=== PATIENT | female | born 1950 | race Caucasian/White ===

== ENCOUNTER → 2024-01-30 12:58 | Outpatient (REF) | payer MEDICARE, SELFPAY ==
[2024-01-30 18:28] LABS: Urine Albumin Negative (Neg - Trace); Urine Bilirubin Negative (Negative); Urine Character Clear (Clear); Urine Color Straw; Urine Glucose Negative (Negative); Urine Ketone Negative (Negative); Urine Leukocyte Negative (Negative); Urine Nitrite Negative (Negative); Urine Occult Blood Negative (Negative); Urine Urobilinogen Negative (Neg - 1+); Urine pH 6.5 (5.0-9.0)
== END ==
LOC: OLABSOL 12:58
PROVIDERS: ATTENDING PHYSICIAN Nurse Practitioner Adult Health
DX: N39.0 Urinary tract infection, site not specified (principal)
CPT/HCPCS: 81003

== ENCOUNTER 2024-03-17 18:09 | Inpatient (IN) | payer MEDICARE, SELFPAY ==
[2024-03-17] VITALS (10 sets, daily range): BP systolic 122–175; BP diastolic 58–94; BMI 14.2
[2024-03-17 14:26] LABS: % Basophils 1.1 % (0-2); % Eosinophils 0.9 % (0-6); % Immature Granulocytes 0.4 % (0-0.5); % Lymphocytes 12.8 % (20.5-51.1); % Monocytes 9.4 % (1.7-9.3); % Neutrophils 75.4 % (42.2-75.2); Absolute Basophils 0.1 10^3/uL (0-0.2); Absolute Eosinophils 0.1 10^3/uL (0-0.7); Absolute Immature Granulocytes 0.1 10^3/uL (0-0.05); Absolute Lymphocytes 1.6 10^3/uL (1.2-3.4); Absolute Monocytes 1.2 10^3/uL (0.1-0.6); Absolute Neutrophils 9.3 10^3/uL (1.4-6.5); Hematocrit 38.4 % (37.0-47.0); Hemoglobin 12.6 g/dL (12.0-16.0); Mean Corp Hgb Conc. 32.8 g/dL (33.0-37.0); Mean Corpuscular Hgb 28.8 pg (27.0-31.0); Mean Corpuscular Volume 87.7 fL (81.0-99.0); Mean Platelet Volume 10.1 fL (7.4-10.4); Nucleated Red Blood Cells % 0 %; Platelet Count 365 10^3/uL (130-400); Red Blood Cell Count 4.38 10^6/uL (4.20-5.40); Red Cell Dist. Width 15.4 % (11.5-14.5); White Blood Cell Count 12.3 10^3/uL (4.8-10.8)
--- NOTE | 2024-03-17 14:31 | ED.GENMED ---
History of Present Illness
General
Chief Complaint: Breathing Problem
Time Seen by Provider: 03/17/24 13:54
History of Present Illness
History of Present Illness:
73-year-old female with history of dementia presents from the [facility] due to rapid breathing and heightened anxiety. Patient is not able to provide any significant history secondary to dementia. Per report from her nursing facility
she was noted to have suboptimal oxygen saturations and heart rates in the 40s.
Review of Systems
Review of Systems
Allergies reviewed?: Yes
All Other Systems: ROS reviewed and negative except as documented in HPI and ROS
Phy Exam
Physical Exam
Physical Exam:
GEN: Anxious and tachypneic, thin
HEENT: Oral mucosa moist, no scleral icterus
Cardiac: Bradycardic, no murmurs
Lung: Tachypneic, bibasilar crackles
MSK: No gross deformity or injuries
Skin: Good color, no pallor or jaundice, no rashes
Neuro: Alert, follows commands, profoundly disoriented
Psych: Calm, cooperative
Scores
Heart Failure Risk
Heart Failure Risk Score: Not Applicable
Course
Orders/Labs/Results
Orders:
Orders
03/17/24 Breakfast
Cholesterol Lowering
Cholesterol Lowering: Sodium, 2 Gram
03/17/24 13:57
Electrocardiogram (*1) Urgent
Reason for Study: Shortness of Breath
EKG- Treatment ONCE
03/17/24 14:05
CMP [Comprehensive Metabolic Panel] Urgent
Complete Blood Count/With Diff Urgent
Magnesium Urgent
Comment: ADD ON
NT-proBNP Urgent
Troponin I Urgent
03/17/24 14:31
Add On- LAB Urgent
Tests Added?: BNP
CR Chest - 2 Views Stat
Comment:
Reason For Exam: SOB
03/17/24 14:38
COVID-19 Antigen Urgent
Source: Nasal Swab
Influenza A+B Rapid Molecular Urgent
ADIN Source: Nasal Swab
Specimen Description:
03/17/24 14:47
Magnesium Sulfate 2 Gram/50 ml [Magnesium Sulfate] 2 gram in 50 ml IV NOW
Potassium Chloride 10% Elixir [KCl Elixir] 40 meq PO NOW STA
Potassium Chloride [KCl] 40 meq Dextrose 5%/Water 250 ml [D5w] 250 ml IV NOW
03/17/24 14:48
Add On- LAB Urgent
Tests Added?: magnesium
03/17/24 16:31
CefTRIAXone [Rocephin] 1,000 mg IV NOW STA
03/17/24 17:26
Admit/Transfer Patient As Directed
Co-Sign Provider:
Level of Care: Inpatient admission
Assign to:: Telemetry
Physician / Group: selena
Diagnosis: acute hypoxia
Reason for Telemetry: Other
Other Reason for Telemetry: acute hypoxia
Date to Stop Telemetry: 03/19/24
Time to Stop Telemetry: 11:00
Reason for Hospitalization: acute hypoxia
Expected length of stay greater than two midnights?: Yes
ELOS- Estimated Length of Stay in days: 3
I certify the patient meets the requirements for IP care: Yes
03/17/24 17:27
PRN Pain Medication Management As Directed
May give lesser potent ordered pain med per pt: Yes
preference::
Protocol:: Medication orders for pain may be administered in a
manner that supports deferring to patient preference
when the pt is:
- Requesting an ordered lesser potent pain medication.
Least to most potent pain medications are defined
as: acetaminophen < NSAID < tramadol < opioids
(morphine, oxycodone, hydromorphone).
- Requesting a lesser dose of the same medication IF
ORDERED.
- Requesting a less intrusive route of administration
if both routes are prescribed by the provider (PO <
IV).
03/17/24 17:28
Code Status As Directed
Resuscitation Status: Do not resuscitate
Reached after discussion with pt or family/Healthcare POA: Yes
DNR Bracelet Application ONCE
03/17/24 17:35
Potassium Chloride [KCl] 40 meq PO NOW STA
03/17/24 17:44
HydrALAZINE [Apresoline] 10 mg IV NOW STA
03/17/24 17:47
Potassium Chloride 10% Elixir [KCl Elixir] 40 meq PO NOW STA
03/17/24 17:50
BMP [Basic Metabolic Panel] Stat
Procalcitonin Stat
PCT Algorithmm Indication: Respiratory
03/17/24 18:35
Blood Culture Routine
ADIN Source: Blood/Venous
Specimen Description:
03/17/24 19:38
Acetaminophen [Tylenol] 650 mg PO Q4HPRN PRN
HydrALAZINE [Apresoline] 10 mg IV Q6HPRN PRN
Ipratropium/Albuterol Sulfate [Duoneb] 3 ml INH R Q4HPRN PRN
Piperacillin/Tazo 3.375 Gram [Zosyn] 3.375 gram in 50 ml IV Q6H
VANCOMYCIN Pharmacy to Dose [VANCOCIN Pharmacy to Dose] 1 each Pharmacy To Prepare [Call Pharmacy To Prepare] 0 ml IV PER PROTOCOL
03/17/24 19:38
Add On- LAB Routine
Tests Added?: pro-bnp
Echo 2D MMode Color/Doppler Routine
Reason for Study: pleural effusion
IRAD CONSULT Routine
Consulting Provider: Mazin Lemon
Was physician already notified: Yes
Reason for Consult/Procedure: thoracentesis
Acknowledgement that appropriate orders are entered: Yes
Acid Fast Culture & Smear Routine
ADIN Source: Pleural Fluid
Specimen Description:
Comment: post procedure
Body Fluid Amylase Routine
Fluid Source: Pleural
Body Fluid Cell Count Routine
What is the Body Fluid: pleural fluid
Comment: post procedure
Body Fluid Glucose Routine
Fluid Source: Pleural
Body Fluid LDH Routine
Fluid Source: Pleural
Body Fluid Protein Routine
Fluid Source: Pleural
Body Fluid Triglycerides Routine
Fluid Source: Pleural
Body Fluid pH Routine
Fluid Source: Pleural
Glucose Routine
Hematocrit Routine
LDH Routine
Comment: post procedure, add on to morning labs if already drawn
Total Protein Routine
Comment: post procedure, add on to morning labs if already drawn
Blood Culture Urgent
ADIN Source: Blood/Venous
Specimen Description:
Fluid Culture with Gram Stain Routine
ADIN Source: Pleural Fluid
Specimen Description:
Comment: post procedure
Fungus Culture Routine
ADIN Source: Pleural Fluid
Specimen Description:
Fungus Smear Routine
ADIN Source: Pleural Fluid
Specimen Description:
Gram Stain Routine
ADIN Source: Pleural Fluid
Specimen Description:
Comment: POST PROCEDURE
Legionella Urinary Antigen Routine
ADIN Source: Urine
Specimen Description:
Vancomycin MRSA PCR Screen Routine
ADIN Source: Nose
Specimen Description:
Activity As Directed
Activity Level: Out of Bed-Early Mobility
Intake/ Output As Directed
Frequency: Per unit guidelines
Vital Signs As Directed
Frequency: Per unit guidelines
Weight As Directed
Frequency: Once
Comment: on admission
O2 Therapy [RESP] Routine
Titrate/Wean O2 to maintain O2 sat greater than (%): 95
Special Instructions: Wean as tolerated
Pulse Ox/cont/shift [RESP] Routine
Quantity: 1
Pt Eval And Treat Routine
Activity Level: As Tolerated
DX Deep Vein Thrombosis Video Routine
DX Deep Vein Thrombosis Video Routine
03/17/24 20:00
Memantine HCl [Namenda] 10 mg PO BID
03/17/24 22:00
Donepezil HCl [Aricept] 10 mg PO HS
Trazodone [Desyrel] 100 mg PO HS
03/18/24 00:00
Heparin 5,000 units SC Q8
Specimen Description:
03/18/24 06:00
Basic Metabolic Panel IN AM
Complete Blood Count/No Diff IN AM
03/18/24 08:00
Amlodipine [Norvasc] 5 mg PO DAILY
Sertraline HCl [Zoloft] 50 mg PO DAILY
omeprazole 40 mg PO DAILY
03/19/24 06:00
Basic Metabolic Panel IN AM
Complete Blood Count/No Diff IN AM
03/19/24 11:00
DC Protocol for Telemetry ONCE
03/20/24 06:00
Basic Metabolic Panel IN AM
Complete Blood Count/No Diff IN AM
03/21/24 06:00
Basic Metabolic Panel IN AM
Complete Blood Count/No Diff IN AM
Abnormal Lab Results
03/17/24 03/17/24
14:05 17:50
WBC 12.3 H 10^3/uL
(4.8-10.8)
MCHC 32.8 L g/dL
(33.0-37.0)
RDW 15.4 H %
(11.5-14.5)
Abs Immat Gran (auto) 0.1 H 10^3/uL
(0-0.05)
Absolute Neuts (auto) 9.3 H 10^3/uL
(1.4-6.5)
Absolute Monos (auto) 1.2 H 10^3/uL
(0.1-0.6)
Neutrophils % 75.4 H %
(42.2-75.2)
Lymphocytes % 12.8 L %
(20.5-51.1)
Monocytes % 9.4 H %
(1.7-9.3)
Potassium 2.2 L* mmol/L
(3.5-5.1)
Glucose 137 H mg/dl 138 H mg/dl
(70-99) (70-99)
Calcium 8.2 L mg/dl 8.1 L mg/dl
(8.4-10.2) (8.4-10.2)
AST 37 H U/L
(14-36)
03/17/24 14:05
03/17/24 17:50
Vital Signs
Initial and Last Documented VS:
Initial Vital Signs
BP Pulse Ox
152/64 92
03/17/24 13:43 03/17/24 13:43
Last Documented Vital Signs
Temp Pulse Resp BP Pulse Ox
98.2 F 77 22 162/80 93
03/17/24 13:48 03/17/24 19:00 03/17/24 13:48 03/17/24 19:00 03/17/24 19:00
MDM/Problems Addressed
MDM/Problems Addressed:
It is not clear why the patient is still hypokalemic as she has not had any notable GI losses and does not take any diuretics. Of note she is tachypneic with chest x-ray findings concerning for new pleural effusion and pneumonia. Aggressive
potassium repletion initiated in the emergency department with improvement in ventricular bigeminy, empiric IV antibiotics initiated based on chest x-ray findings. Will be admitted to the hospitalist service for further management
Comment
Comment:
Initial EKG independently interpreted by me shows a sinus rhythm with ventricular bigeminy
*Critical Care Note
Total Time (30-74mins, 75-104mins- exclusive of procedures): 35 minutes
comment:
Critical care time: 35 minutes
Critical care time was exclusive of: Separately billable procedures, treating other patients, and teaching time
Critical care was necessary to treat or prevent imminent or life-threatening deterioration of the following conditions: Hypokalemia with EKG changes
Critical care time spent personally by me on the following activities:
[x] Review of old charts
[x] Obtaining history from patient or surrogate
[x] Ordering and review of the laboratory studies
[ ] Ordering and review of radiographic studies
[x] Ordering and performing treatments and interventions
[x] Patient patient's response to treatment
[x] Development of treatment plan with patient or surrogate
ED Attending Note
-
Portions of this chart may have been created with voice recognition software.� Occasional wrong word or��sound alike� substitutions may have occurred due to the inherent limitations of voice recognition software.
Discharge Plan
Departure
Patient Disposition: Admit
Date of Disposition: 03/17/24
Time of Disposition: 16:24
Admit to: Telemetry
Presentation/result/management discussed w/ accepting MD/DO: Hospitalist
Discharge Problem:
Acute hypokalemia
Interventions
Interventions:
*Risk Screen - Suicide Last Done: 03/17/24 13:48
*General Assessment Last Done: 03/17/24 13:48
*Neglect/Abuse Screening Last Done: 03/17/24 13:48
*ED COVID-19 Vaccine History Last Done: 03/17/24 13:48
ED- Cardiac Assessment Last Done: 03/17/24 13:48
ED- Pulmonary Assessment Last Done: 03/17/24 13:48
[2024-03-17 14:45] LABS: ALT (SGPT) 31 U/L (0-35); AST (SGOT) 37 U/L (14-36); Albumin 3.6 g/dl (3.5-5.0); Alkaline Phosphatase 105 U/L (38-126); Blood Urea Nitrogen 16 mg/dl (7-17); Calcium 8.2 mg/dl (8.4-10.2); Carbon Dioxide 24 mmol/L (22-30); Chloride 98 mmol/L (98-107); Glucose 137 mg/dl (70-99); Potassium 2.2 mmol/L (3.5-5.1); Sodium 138 mmol/L (135-145); Total Bilirubin 0.7 mg/dl (0.2-1.3); Total Protein 6.8 g/dl (6.3-8.2); eGFR > 60.00
[2024-03-17 14:56] LABS: Troponin I 0.016 ng/ml
[2024-03-17] MEDS: KCL ELIXIR 40 MEQ PO ×2 (15:04→18:17)
[2024-03-17] MEDS: MAGNESIUM SULFATE 50 IV (15:04)
[2024-03-17 15:09] LABS: COVID-19 Antigen Negative (Negative)
[2024-03-17 15:21] LABS: NT-proBNP 5600 pg/ml
--- NOTE | 2024-03-17 17:06 | HPS.HSE ---
Addendum entered and electronically signed by Brett Banuelos MD 03/17/24 18:13:
I saw and examined the patient.
The THREAD DRESSER or PA's note was reviewed and I agree with the note.
Comment:
73-year-old female with history of dementia, hypertension, GERD, depression presents from the [facility] due to rapid breathing and low heart rate. Poor historian with poor PO intake over the last week because she doesn't like the food.
Denies fever, chills, nausea, vomiting, dysuria, hematuria. On 2L, BP 175/73. WBC 12.3, K 2.2; EKG with bigeminy. SARS-COV-2 negative; CXR showing moderate left pleural effusion, small right pleural effusion, moderate left lower lobe pneumonia.
Aggressive potassium repletion, follow-up BMP this evening. Start antibiotics, vancomycin, Zosyn, MRSA swab. F/u cultures. Add on procal, proBNP. Follow-up echocardiogram. IR for possible thora if possible; May start lasix depending on ECHO and
if K improves greatly- - no urgent need at this time.
Original Note:
Family Physician
-
Family Physician: Anamika Hogan,
Chief Complaint
-
sob
History of Present Illness
73-year-old female with history of dementia, hypertension, GERD, depression presents from the [facility] due to rapid breathing and low heart rate. Patient stated short of breath which was worse with activity. Patient is a poor
historian. Patient denied any chest pain, fever, chills, congestion, cough. denied headache, dizziness or syncope. Patient denied abdominal pain, nausea, vomiting, diarrhea. Patient denied dysuria, hematuria. Patient had episode of diarrhea for
2 days couple weeks ago. Nothing since then. Her appetite has worsened for past 1 month.
Upon arrival patient is requiring 2 L of oxygen. Patient received ceftriaxone, potassium chloride, mag rider. Admitting for further management
Medical History
Past Medical History
Past Medical History: Reports Other
Additional Past Medical History:
Hypertension, GERD, dementia, depression, IBS
Past Surgical History: Reports None
Social History
Tobacco: Former Smoker
Alcohol: None
Drug: None
Personal: Single
Living: Assisted Living
Family History
Family History: Not pertinent
Allergies / Home Medications
Allergies reflects when Allergies were last updated in [employer].
Home Medications with original date entered in [employer]
Allergy/Medication List:
Allergies
Allergy/AdvReac Type Severity Reaction Status Date / Time
No Known Allergies Allergy Unverified 03/17/24 14:57
Home Medications
amlodipine 5 mg tablet 5 mg PO DAILY 03/17/24
donepezil 10 mg tablet 10 mg PO HS 03/17/24
loperamide 2 mg tablet 4 mg PO Q6H PRN loose stool 03/17/24
memantine 10 mg tablet 10 mg PO BID 03/17/24
omeprazole 40 mg capsule,delayed release 40 mg PO DAILY 03/17/24
ondansetron HCl 4 mg tablet 4 mg PO Q6H PRN nausea 03/17/24
sertraline 50 mg tablet 50 mg PO DAILY 03/17/24
trazodone 100 mg tablet 100 mg PO HS 03/17/24
Review of Systems
-
Constitutional: Reports No Symptoms
EENT: Reports No Symptoms
Respiratory: Reports Trouble Breathing
Cardiac: Reports No Symptoms
Abdomen/GI: Reports No Symptoms
: Reports No Symptoms
Musculoskeletal: Reports No Symptoms
Skin: Reports No Symptoms
Neurological: Reports No Symptoms
Endocrine: Reports No Symptoms
Hematologic/Lymphatic: Reports No Symptoms
Psych: Reports No Symptoms
Physical Exam
Vital Signs
Vital Signs
Temp Pulse Resp BP Pulse Ox
98.2 F 68 22 160/80 96
03/17/24 13:48 03/17/24 16:30 03/17/24 13:48 03/17/24 16:00 03/17/24 16:30
Physical Exam
General: Well Developed, Well Nourished and No Apparent Distress
HEENT: NormoCephalic, Moist mucous membranes and Atraumatic
Respiratory: Clear
Cardiac: S1/S2 and Regular Rhythm; No Murmur or Rub
GI: Soft, Non Tender, Non Distended and Normal Bowel Sounds; No Organomegaly
Rectal: Deferred by Provider
Musculoskeletal: No Clubbing, No Cyanosis and No Edema
Skin: No Rash
Neuro: Nonfocal/grossly intact
Psych: Anxious
Laboratory Results
-
03/17/24 14:05
03/17/24 14:05
Laboratory Results
Total Bilirubin 0.7 mg/dl (0.2-1.3) 03/17/24 14:05
AST 37 U/L (14-36) H 03/17/24 14:05
ALT 31 U/L (0-35) 03/17/24 14:05
Alkaline Phosphatase 105 U/L (38-126) 03/17/24 14:05
Troponin I 0.016 ng/ml 03/17/24 14:05
Data Reviewed
-
Diagnostic Radiology: Report Reviewed by me
Lab Data: Labs Reviewed by me
Impression/Plan
-
# Hypokalemia likely from poor oral intake
-k 2.2
-K rider infusing
-supplemented with oral kcl
-Continue to monitor BMP
# Ventricular bigeminy
-At present normal sinus rhythm
# Acute hypoxic respiratory failure likely from pleural effusion and pneumonia
-Chest x-ray with moderate left pleural effusion and small right pleural effusion and moderate left lower lobe pneumonia
-BNP 5600, WBCs 12.3
-Continue supplemental oxygen to keep sat greater than 92
-Wean as tolerated
-IV vanco and zosyn continued
-obtain procal, MRSA
-IR consulted for thoracentesis
# Essential hypertension
-Norvasc continued with hold parameters
-continue hydralazine for SBP>170
# Dementia
-Aricept, memantine and sertraline continued
-Trazodone
# GERD
-PPI continued
# DVT prophylaxis
-heparin subcu
# CODE STATUS
-DNR
[2024-03-17] MEDS: KCL 270 MEQ IV (17:10)
[2024-03-17] MEDS: ROCEPHIN 1000 MG IV (17:17)
[2024-03-17 18:24] LABS: Blood Urea Nitrogen 15 mg/dl (7-17); Calcium 8.1 mg/dl (8.4-10.2); Carbon Dioxide 27 mmol/L (22-30); Chloride 102 mmol/L (98-107); Glucose 138 mg/dl (70-99); Sodium 138 mmol/L (135-145); eGFR > 60.00
[2024-03-17 18:37] LABS: Procalcitonin 0.12 ng/ml (0.0-0.25)
[2024-03-17 18:52] LABS: Potassium 3.7 mmol/L (3.5-5.1)
[2024-03-17] MEDS: ARICEPT 10 MG PO (20:44)
[2024-03-17] MEDS: NAMENDA 10 MG PO (20:44)
[2024-03-17] MEDS: DESYREL 100 MG PO (20:44)
[2024-03-17] MEDS: VANCOCIN 200 IV (20:45)
--- NOTE | 2024-03-17 20:54 | PHA.VAN.IN ---
Assessment
- Assessment
Renal Function: Appears similar to baseline
Concomitant Antimicrobials: ZOSYN
- Previous Dosing Experience
Previous Regimen: NONE
AUC Dosing Plan
- Dosing Variables
Dosing Weight (kg): 61.6
Dosing CrCl (ml/min): 60
Vd coefficient (L/kg): 0.7
- Empiric Dosing
Initial / Loading Dose: 1GM
Maintenance Regimen: 1250MG IV Q24H
Estimated AUC (mcg*h/mL): 557
Estimated Peak (mcg*h/mL): 39.8
Estimated Trough (mcg/ml): 11.8
Estimated Half Life (H): 12.8
Pharmacokinetics Vancomycin I
- -
Patient Age: 73
Patient Sex: Female
Vancomycin Day #: 1
Indication: Pulmonary/Respiratory
Requesting Provider: ISAIAS
Height / Weight:
Height 5 ft 7 in
Actual Weight 41.022 kg
IBW in k.6
- Vital Signs / Lab Results
Temp Pulse Resp BP Pulse Ox
98.2 F 77 22 162/80 93
03/17/24 13:48 03/17/24 19:00 03/17/24 13:48 03/17/24 19:00 03/17/24 19:00
Lab Results - Hematology
03/17/24
14:05
WBC 12.3 H
Lab Results - Chemistry
03/17/24 03/17/24
14:05 17:50
BUN 16 15
Creatinine 0.9 0.8
Albumin 3.6
Microbiology Results
03/17/24 14:38 Influenza Types A & B (MARISA) - Final
Nasal Swab Negative for Influenza A & B, NAAT
Negative results must be combined with clinical observations
and patient history.
Nucleic Acid Amplification test (NAAT)performed on the
[employer] platform.
[2024-03-17] MEDS: VANCOCIN 275 MG IV (21:06)
[2024-03-17 23:00] LABS: Glucose 149 mg/dl (70-99); LDH 340 U/L (120-246); Total Protein 6.8 g/dl (6.3-8.2)
--- NOTE | 2024-03-17 23:38 | PTCARENOTE ---
Pt received at approximately 2000. Pt able to stand walk to the bed. Pt stable no c/o pain. Pt placed on tele, oriented to room, bed alarm placed.
[2024-03-18] VITALS (7 sets, daily range): BP systolic 123–165; BP diastolic 63–88; PULSE 70; O2SAT 93; BMI 14.2
[2024-03-18] MEDS: HEPARIN 5000 UNITS SC ×4 (00:13→22:59)
[2024-03-18] MEDS: ZOSYN 50 IV ×3 (00:15→11:38)
[2024-03-18] MEDS: ZOLOFT 50 MG PO (07:48)
[2024-03-18] MEDS: NAMENDA 10 MG PO ×2 (07:48→20:33)
[2024-03-18] MEDS: PROTONIX 40 MG PO (07:48)
[2024-03-18] MEDS: NORVASC 5 MG PO (07:48)
[2024-03-18 08:47] LABS: Hemoglobin 12.8 g/dL (12.0-16.0); Mean Corp Hgb Conc. 32.8 g/dL (33.0-37.0); Mean Corpuscular Hgb 29.4 pg (27.0-31.0); Mean Corpuscular Volume 89.7 fL (81.0-99.0); Mean Platelet Volume 10.2 fL (7.4-10.4); Platelet Count 339 10^3/uL (130-400); Red Blood Cell Count 4.35 10^6/uL (4.20-5.40); Red Cell Dist. Width 15.7 % (11.5-14.5); White Blood Cell Count 7.8 10^3/uL (4.8-10.8)
[2024-03-18 09:58] LABS: Blood Urea Nitrogen 11 mg/dl (7-17); Calcium 8.3 mg/dl (8.4-10.2); Carbon Dioxide 29 mmol/L (22-30); Chloride 105 mmol/L (98-107); Estimated Creatinine Clearance 32 ml/min; Glucose 113 mg/dl (70-99); Potassium 2.4 mmol/L (3.5-5.1); Sodium 146 mmol/L (135-145); eGFR 59.12
--- NOTE | 2024-03-18 12:12 | W.PN.HOSP.TC ---
Today's Communication/Plan
-
abx
f/u cultures
aggressive k repletion
holding on lasix due to hypokalemia
wean o2 as tolerated; goal o2 >92%
Assessment / Plan
Assessment / Plan
Physical Exam
General: Well Developed, Well Nourished and No Apparent Distress
HEENT: NormoCephalic, Moist mucous membranes and Atraumatic
Respiratory: mild crackles at bases -improved from yesterday
Cardiac: S1/S2 and Regular Rhythm; No Murmur or Rub
GI: Soft, Non Tender, Non Distended and Normal Bowel Sounds; No Organomegaly
Rectal: Deferred by Provider
Musculoskeletal: No Clubbing, No Cyanosis and No Edema
Skin: No Rash
Neuro: Nonfocal/grossly intact
Psych: Anxious
# Acute hypoxic respiratory failure likely to pneumonia + ?acute HFpEF with severe TR
-minimal fluid for any safe thora
-cont abx
-f/u cultures
-MRSA neg
-stop vanc, zosyn
-switch to ceftriaxone, Azithro
-wean o2, o2 goal >92%
-obtain procal, MRSA
-IR consulted for thoracentesis - no safe fluid amount for tap
#Pleural effusions
-2/2 to Severe TR
-hold diuresis due to hypokalemia
-cards consulted
#Hypernatremia
-mild
-ctm
# Hypokalemia likely from poor oral intake
-k 2.2
-monitor and replete
-Continue to monitor BMP
# Ventricular bigeminy
-At present normal sinus rhythm
-most likely 2/2 to hypokalemia
-ctm
#Severe tricuspid regurgitation
#Suspected PAH
-Anticipate need of lasix although low K precludes this
-
# Essential hypertension
-Norvasc continued with hold parameters
-continue hydralazine for SBP>170
# Dementia
-Aricept, memantine and sertraline continued
-Trazodone
# GERD
-PPI continued
# DVT prophylaxis
-heparin subcu
# CODE STATUS
-DNR
Total time spent on today's encounter was 51 minutes which included time spent in counseling the patient/family regarding diagnosis and treatment plan as listed above, goals of care, and symptom management. Case was discussed with nursing staff,
specialists, and care coordinators/case management. All labs and imaging personally reviewed by me. Remainder the time spent in detailed review of previous records, lab data, imaging, and other medical provider documentation.
Anticipated Discharge: 24 - 48 hours
Subjective/Interval History
-
Date of Service: March 18, 2024
minimal fluid for thora today
Objective Data
-
Labs:
Laboratory Results
03/18/24 03/18/24
00:30 08:19
WBC 7.8
Hgb 12.8
Hct Cancelled 39.0
Plt Count 339
Sodium 146 H D
Potassium 2.4 L* D
Chloride 105
Carbon Dioxide 29
BUN 11
Creatinine 1.0
Glucose 113 H
Calcium 8.3 L
Vital Signs:
Vital Signs
Temp Pulse Resp BP Pulse Ox
97.4 F 71 17 152/66 94
03/18/24 11:30 03/18/24 11:30 03/18/24 11:30 03/18/24 11:30 03/18/24 11:30
I&O
03/17/24 03/18/24 03/19/24
06:59 06:59 06:59
Intake Total 615 / 615
Balance 615 / 615
Review of Systems
-
History Source: Patient
All other systems: Not reviewed unless documented
Data Reviewed
-
Diagnostic Radiology: Image personally visualized and interpreted and Report Reviewed by me
Ultrasound: Report Reviewed by me
Labs: Labs Reviewed by me
[2024-03-18] MEDS: KCL ELIXIR 40 MEQ PO ×4 (13:18→22:59)
[2024-03-18] MEDS: ROCEPHIN IV (16:51)
[2024-03-18] MEDS: STERILE WATER FOR INJECTION IV (16:52)
[2024-03-18] MEDS: STERILE WATER FOR INJECTION 10 ML IV (17:54)
[2024-03-18] MEDS: ROCEPHIN 1000 MG IV (17:55)
[2024-03-18] MEDS: ARICEPT 10 MG PO (20:32)
[2024-03-18] MEDS: DESYREL 100 MG PO (20:33)
[2024-03-18 21:44] LABS: Blood Urea Nitrogen 9 mg/dl (7-17); Calcium 8.3 mg/dl (8.4-10.2); Carbon Dioxide 29 mmol/L (22-30); Chloride 108 mmol/L (98-107); Estimated Creatinine Clearance 40 ml/min; Glucose 103 mg/dl (70-99); Sodium 147 mmol/L (135-145); eGFR > 60.00
[2024-03-19 03:34] VITALS: BP 120/67
[2024-03-19 07:34] VITALS: BP 150/87
[2024-03-19] MEDS: NORVASC 5 MG PO (08:00)
[2024-03-19] MEDS: PROTONIX 40 MG PO (08:01)
[2024-03-19] MEDS: HEPARIN 5000 UNITS SC ×3 (08:01→23:18)
[2024-03-19] MEDS: NAMENDA 10 MG PO ×2 (08:01→20:20)
[2024-03-19] MEDS: ZOLOFT 50 MG PO (08:01)
[2024-03-19 09:21] LABS: Hematocrit 40.1 % (37.0-47.0); Hemoglobin 12.3 g/dL (12.0-16.0); Mean Corp Hgb Conc. 30.7 g/dL (33.0-37.0); Mean Corpuscular Hgb 28.7 pg (27.0-31.0); Mean Corpuscular Volume 93.5 fL (81.0-99.0); Platelet Count 356 10^3/uL (130-400); Red Blood Cell Count 4.29 10^6/uL (4.20-5.40); Red Cell Dist. Width 16.1 % (11.5-14.5); White Blood Cell Count 7.7 10^3/uL (4.8-10.8)
[2024-03-19 09:51] LABS: Blood Urea Nitrogen 9 mg/dl (7-17); Calcium 8.7 mg/dl (8.4-10.2); Carbon Dioxide 30 mmol/L (22-30); Chloride 107 mmol/L (98-107); Estimated Creatinine Clearance 36 ml/min; Glucose 108 mg/dl (70-99); Magnesium 2.2 mg/dl (1.6-2.3); Potassium 3.6 mmol/L (3.5-5.1); Sodium 147 mmol/L (135-145); eGFR > 60.00
[2024-03-19 11:45] VITALS: BP 138/83
--- NOTE | 2024-03-19 12:58 | CM ---
Spoke w/ Tadeo, nurse supervisor finish end at [facility] ([phone]). Pt is a resident in the memory care unit. Pt has severe dementia.
Pt is independent, does not use any devices to ambulate. Pt gets assistance w/ bathing and is able to self feed.
No SNF/VN/PT
PCP: Dr. Anamika Hogan
Pharmacy: [facility]
Currently on 3L O2, wean as tolerated
On abx
Per PT/OT, home PT vs no needs. Will cont to follow and assess
CM will cont to follow hospital course for any d/c needs
[facility]-Memory Care Unit
Report: [phone]

Plan: Return to [facility] when medically stable
--- NOTE | 2024-03-19 14:31 | W.PN.HOSP.TC ---
Today's Communication/Plan
-
initiate lasix
wean o2
cards consult rodri
abx
Assessment / Plan
Assessment / Plan
Physical Exam
General: Well Developed, Well Nourished and No Apparent Distress
HEENT: NormoCephalic, Moist mucous membranes and Atraumatic
Respiratory: mild crackles at bases -improved from yesterday
Cardiac: S1/S2 and Regular Rhythm; No Murmur or Rub
GI: Soft, Non Tender, Non Distended and Normal Bowel Sounds; No Organomegaly
Rectal: Deferred by Provider
Musculoskeletal: No Clubbing, No Cyanosis and No Edema
Skin: No Rash
Neuro: Nonfocal/grossly intact
Psych: Anxious
# Acute hypoxic respiratory failure likely to pneumonia + ?acute HFpEF with severe TR
-minimal fluid for any safe thora
-cxr still persistent with pleural effusions
-cont abx
-f/u cultures
-MRSA neg
-stop vanc, zosyn
-switch to ceftriaxone, Azithro - 5 day course
-initiate lasix
-Engage Cards tomorrow
-wean o2, o2 goal >92%
-obtain procal, MRSA
-IR consulted for thoracentesis - no safe fluid amount for tap
#Pleural effusions
-2/2 to Severe TR
- diuresis
-cards consult for rodri
#Hypernatremia
-mild
-ctm
# Hypokalemia likely from poor oral intake
-k 2.2
-monitor and replete
-Continue to monitor BMP
# Ventricular bigeminy
-At present normal sinus rhythm
-most likely 2/2 to hypokalemia
-ctm
#Severe tricuspid regurgitation
#Suspected PAH
-start lasix
# Essential hypertension
-Norvasc continued with hold parameters
-continue hydralazine for SBP>170
# Dementia
-Aricept, memantine and sertraline continued
-Trazodone
# GERD
-PPI continued
# DVT prophylaxis
-heparin subcu
# CODE STATUS
-DNR
Total time spent on today's encounter was 53 minutes which included time spent in counseling the patient/family regarding diagnosis and treatment plan as listed above, goals of care, and symptom management. Case was discussed with nursing staff,
specialists, and care coordinators/case management. All labs and imaging personally reviewed by me. Remainder the time spent in detailed review of previous records, lab data, imaging, and other medical provider documentation.
Anticipated Discharge: Today
Subjective/Interval History
-
Date of Service: March 19, 2024
Still hypoxic, shortness of breath
Objective Data
-
Labs:
Laboratory Results
03/19/24
08:43
WBC 7.7
Hgb 12.3
Hct 40.1
Plt Count 356
Sodium 147 H
Potassium 3.6
Chloride 107
Carbon Dioxide 30
BUN 9
Creatinine 0.9
Glucose 108 H
Calcium 8.7
Vital Signs:
Vital Signs
Temp Pulse Resp BP Pulse Ox
98 F 74 17 138/83 96
03/19/24 11:45 03/19/24 11:45 03/19/24 11:45 03/19/24 11:45 03/19/24 11:45
I&O
03/18/24 03/19/24 03/20/24
06:59 06:59 06:59
Intake Total 615 / 615 1200 / 1200
Balance 615 / 615 1200 / 1200
Review of Systems
-
History Source: Patient
All other systems: Not reviewed unless documented
Data Reviewed
-
Diagnostic Radiology: Image personally visualized and interpreted and Report Reviewed by me
Ultrasound: Report Reviewed by me
Labs: Labs Reviewed by me
[2024-03-19 15:22] VITALS: BP 163/89
[2024-03-19] MEDS: ZITHROMAX 500 MG PO (16:14)
[2024-03-19] MEDS: LASIX 40 MG IV (16:14)
[2024-03-19] MEDS: KCL ELIXIR 40 MEQ PO (16:14)
[2024-03-19] MEDS: ROCEPHIN 1000 MG IV (16:17)
[2024-03-19] MEDS: STERILE WATER FOR INJECTION 10 ML IV (16:18)
[2024-03-19 19:30] VITALS: BP 139/76
[2024-03-19] MEDS: DESYREL 100 MG PO (21:31)
[2024-03-19] MEDS: ARICEPT 10 MG PO (21:31)
[2024-03-19 23:30] VITALS: BP 115/60
[2024-03-20 03:30] VITALS: BP 108/56
[2024-03-20 07:25] VITALS: BP 118/61
[2024-03-20] MEDS: ZOLOFT 50 MG PO (08:07)
[2024-03-20] MEDS: NAMENDA 10 MG PO ×2 (08:07→20:25)
[2024-03-20] MEDS: ZITHROMAX 500 MG PO (08:07)
[2024-03-20] MEDS: LASIX 40 MG IV (08:07)
[2024-03-20] MEDS: HEPARIN 5000 UNITS SC ×2 (08:07→15:54)
[2024-03-20] MEDS: NORVASC 5 MG PO (08:07)
[2024-03-20] MEDS: PROTONIX 40 MG PO (08:07)
[2024-03-20 08:58] LABS: Hematocrit 37.4 % (37.0-47.0); Mean Corp Hgb Conc. 32.1 g/dL (33.0-37.0); Mean Corpuscular Hgb 29.3 pg (27.0-31.0); Mean Corpuscular Volume 91.2 fL (81.0-99.0); Mean Platelet Volume 10.6 fL (7.4-10.4); Platelet Count 335 10^3/uL (130-400); Red Cell Dist. Width 15.9 % (11.5-14.5)
[2024-03-20 11:20] VITALS: BP 115/64
[2024-03-20 11:32] LABS: Blood Urea Nitrogen 13 mg/dl (7-17); Carbon Dioxide 32 mmol/L (22-30); Chloride 97 mmol/L (98-107); Estimated Creatinine Clearance 29 ml/min; Glucose 108 mg/dl (70-99); Potassium 3.3 mmol/L (3.5-5.1); Sodium 142 mmol/L (135-145); eGFR 52.73
--- NOTE | 2024-03-20 14:54 | W.PN.HOSP.TC ---
Today's Communication/Plan
-
lasix
can cont abx for now
wean o2
cards consulted
Assessment / Plan
Assessment / Plan
Physical Exam
General: Well Developed, Well Nourished and No Apparent Distress
HEENT: NormoCephalic, Moist mucous membranes and Atraumatic
Respiratory: mild crackles at bases -improved from yesterday
Cardiac: S1/S2 and Regular Rhythm; No Murmur or Rub
GI: Soft, Non Tender, Non Distended and Normal Bowel Sounds; No Organomegaly
Rectal: Deferred by Provider
Musculoskeletal: No Clubbing, No Cyanosis and No Edema
Skin: No Rash
Neuro: Nonfocal/grossly intact
Psych: Anxious
# Acute hypoxic respiratory failure likely to pneumonia + ?acute HFpEF with severe TR
-minimal fluid for any safe thora
-cxr still persistent with pleural effusions
-cont abx
-f/u cultures
-MRSA neg
-stop vanc, zosyn
-switch to ceftriaxone, Azithro - 5 day course
-initiate lasix
-Engage Cards t
-wean o2, o2 goal >92%
-IR consulted for thoracentesis - no safe fluid amount for tap
#Pleural effusions
-2/2 to Severe TR
- diuresis
-cards consult
�Monitor BMP with diuresis
#Hypernatremia
-mild
-ctm
# Hypokalemia likely from poor oral intake
-k 2.2
-monitor and replete
-Continue to monitor BMP
# Ventricular bigeminy
-At present normal sinus rhythm
-most likely 2/2 to hypokalemia
-ctm
#Severe tricuspid regurgitation
#Suspected PAH
-start lasix
# Essential hypertension
-Norvasc continued with hold parameters
-continue hydralazine for SBP>170
# Dementia
-Aricept, memantine and sertraline continued
-Trazodone
# GERD
-PPI continued
# DVT prophylaxis
-heparin subcu
# CODE STATUS
-DNR
Total time spent on today's encounter was 52 minutes which included time spent in counseling the patient/family regarding diagnosis and treatment plan as listed above, goals of care, and symptom management. Case was discussed with nursing staff,
specialists, and care coordinators/case management. All labs and imaging personally reviewed by me. Remainder the time spent in detailed review of previous records, lab data, imaging, and other medical provider documentation.
Anticipated Discharge: Within 24 hours
Subjective/Interval History
-
Date of Service: March 20, 2024
No acute events
Objective Data
-
Labs:
Laboratory Results
03/20/24 03/20/24
07:51 10:00
WBC 7.0
Hgb 12.0
Hct 37.4
Plt Count 335
Sodium Cancelled 142
Potassium Cancelled 3.3 L
Chloride Cancelled 97 L
Carbon Dioxide Cancelled 32 H
BUN Cancelled 13
Creatinine Cancelled 1.1 H
Glucose Cancelled 108 H
Calcium Cancelled 9.0
Vital Signs:
Vital Signs
Temp Pulse Resp BP Pulse Ox
97.6 F 72 16 115/64 96
03/20/24 11:20 03/20/24 11:54 03/20/24 11:54 03/20/24 11:20 03/20/24 11:54
I&O
03/19/24 03/20/24 03/21/24
06:59 06:59 06:59
Intake Total 1200 / 1200 840 / 840
Balance 1200 / 1200 840 / 840
Review of Systems
-
History Source: Patient
All other systems: Not reviewed unless documented
Data Reviewed
-
Diagnostic Radiology: Image personally visualized and interpreted and Report Reviewed by me
Ultrasound: Report Reviewed by me
Labs: Labs Reviewed by me
[2024-03-20 15:00] VITALS: BP 119/67
--- NOTE | 2024-03-20 15:37 | CON.CAR ---
Addendum entered and electronically signed by Kamran Sanchez MD 03/20/24 17:31:
I saw and examined the patient.
The Boarder Machine's note was reviewed and I agree with the note.
Comment: Briefly, 73-year-old woman past medical history of dementia presenting with dyspnea found to have significantly elevated proBNP greater than 5000, chest x-ray with bilateral pleural effusions and transthoracic echocardiogram showing
moderately elevated pulmonary pressures and severe tricuspid regurgitation but preserved biventricular function.
Patient still requiring supplemental oxygen, 3 L at the time of my evaluation
Agree with gentle IV diuresis in attempt to improve her respiratory status given acute heart failure with preserved ejection fraction
Wean oxygen as able
Follow renal function and electrolytes, ideally would have standing weights as well if possible
New to diuretics, on discharged plan for low-dose p.o. Lasix, tentatively 20 mg daily
Original Note:
Consultation
Consultation Request
Date/Time Consultation Performed: 03/20/24
Requesting Provider: Dr. Banuelos
Performing Provider: Hollie Ghotra PA-C for Dr. Sanchez
Reason for Consultation: CHF
Medical History
-
Chief Complaint: SOB, bradycardia
History of Present Illness:
Patient is a 73 yo F resident of [place] [facility] with dementia, HTN, GERD who presented from [facility] due to staff noting SOB and bradycardia. Also was reported to have poor oral intake over the week prior to admission. On arrival, was noted to have marked
hypokalemia. Was initially being treated as a PNA, however noted to have B/L pleural effusions by CXR and echo with preserved EF but severe TR so concern for component of acute CHF. proBNP 5600. Patient denies current breathing difficulty, SOB. Not
on diuretic as OP. 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
PMH:
dementia
HTN
GERD
Past Medical History
Past Medical History: Other (in HPI)
Social History
Tobacco: Former Smoker
Alcohol: None
Living: [facility] ([place])
Family History
Family History: Unable to Obtain
Allergies / Home Medications
Allergy/AdvReac Type Severity Reaction Status Date / Time
No Known Allergies Allergy Unverified 03/17/24 14:57
�Medication �Instructions �Recorded �Confirmed �Type
amlodipine 5 mg tablet 5 mg PO DAILY Blood Pressure 03/17/24 03/17/24 History
donepezil 10 mg tablet 10 mg PO HS Neurological Condition 03/17/24 03/17/24 History
loperamide 2 mg tablet 4 mg PO Q6H PRN loose stool 03/17/24 03/17/24 History
memantine 10 mg tablet 10 mg PO BID Neurological Condition 03/17/24 03/17/24 History
omeprazole 40 mg capsule,delayed 40 mg PO DAILY Gastrointestinal 03/17/24 03/17/24 History
release Issue
ondansetron HCl 4 mg tablet 4 mg PO Q6H PRN nausea 03/17/24 03/17/24 History
sertraline 50 mg tablet 50 mg PO DAILY Mental 03/17/24 03/17/24 History
Health/Anxiety
trazodone 100 mg tablet 100 mg PO HS Mental Health/Anxiety 03/17/24 03/17/24 History
Review of Systems
-
Unable to obtain full review of systems at this time due to: Dementia
History Source: Patient
All other systems: Negative unless noted
Physical Exam
Vital Signs
Temp Pulse Resp BP Pulse Ox
97.6 F 72 16 115/64 96
03/20/24 11:20 03/20/24 11:54 03/20/24 11:54 03/20/24 11:20 03/20/24 11:54
Lab Results
03/20/24 07:51
03/20/24 10:00
Troponin I 0.016 ng/ml 03/17/24 14:05
U[facility] Pept 5600 pg/ml 03/17/24 14:05
Physical Exam
General: No Apparent Distress, Comfortable and Other (on supp O2)
HEENT: Normocephalic, Anicteric and Moist Mucous Membranes
Respiratory: Non Labored Respirations
Cardiac: S1/S2 and Regular Rhythm
GI: Soft, Non Tender, Non Distended and Normal Bowel Sounds
Musculoskeletal: No Clubbing, No Cyanosis and No Edema
Skin: Warm and Dry
Neuro: Awake, Alert and Oriented (to self)
Impression / Plan
-
Primary Sole Cutter: unknown
Assessment:
Presentation with SOB
Concern for PNA
Pleural effusions
Suspected acute HFpEF
Severe TR, concern for pulm HTN
Hypokalemia
Bradycardia
PVCs at times of pattern of bigeminy
dementia
HTN
GERD
ECHO 03/18/24: EF 55 to 60%, mild MR, mild to moderate AR, severe TR, PAP 55 mmHg, pleural effusion present
Plan:
-Patient presents from shelter with shortness of breath and concern for PNA.
-also noted to have pleural effusions by imaging. proBNP 5600.
-echo with preserved EF but severe TR and suspected pulm HTN. concern for component of acute CHF
-continue IV lasix 40mg daily. not on diuretic prior to admission. Cr up to 1.1, follow with diuresis
-replete K
-wean supp O2 as able
-would stop OP norvasc and transition to CCB or BB given PVCs/bigeminy. mag stable
Data Reviewed
-
EKG: Tracing Personally Visualized and interpreted
Radiology: Report Reviewed by me
Medical Tests (Nuc Med, Echo etc): Report Reviewed by me
Labs: Labs Reviewed by me
Old Records: Reviewed
[2024-03-20] MEDS: KCL ELIXIR 40 MEQ PO (15:53)
[2024-03-20] MEDS: STERILE WATER FOR INJECTION 10 ML IV (15:54)
[2024-03-20] MEDS: ROCEPHIN 1000 MG IV (15:54)
[2024-03-20 19:30] VITALS: BP 128/65
[2024-03-20] MEDS: ARICEPT 10 MG PO (21:35)
[2024-03-20] MEDS: DESYREL 100 MG PO (21:36)
[2024-03-20 23:45] VITALS: BP 132/63
[2024-03-21] MEDS: HEPARIN 5000 UNITS SC ×4 (00:37→23:57)
[2024-03-21 03:30] VITALS: BP 125/59
[2024-03-21 06:55] LABS: Hematocrit 36.7 % (37.0-47.0); Hemoglobin 11.6 g/dL (12.0-16.0); Mean Corp Hgb Conc. 31.6 g/dL (33.0-37.0); Mean Corpuscular Hgb 28.9 pg (27.0-31.0); Mean Corpuscular Volume 91.5 fL (81.0-99.0); Mean Platelet Volume 9.5 fL (7.4-10.4); Platelet Count 339 10^3/uL (130-400); Red Blood Cell Count 4.01 10^6/uL (4.20-5.40); Red Cell Dist. Width 15.7 % (11.5-14.5); White Blood Cell Count 7.5 10^3/uL (4.8-10.8)
[2024-03-21 07:00] VITALS: BP 141/70
[2024-03-21 07:21] LABS: Blood Urea Nitrogen 17 mg/dl (7-17); Calcium 8.5 mg/dl (8.4-10.2); Carbon Dioxide 32 mmol/L (22-30); Chloride 102 mmol/L (98-107); Estimated Creatinine Clearance 29 ml/min; Glucose 75 mg/dl (70-99); Potassium 3.4 mmol/L (3.5-5.1); Sodium 143 mmol/L (135-145); eGFR 52.73
[2024-03-21] MEDS: LASIX 40 MG IV (08:01)
[2024-03-21] MEDS: ZOLOFT 50 MG PO (08:02)
[2024-03-21] MEDS: ZITHROMAX 500 MG PO (08:02)
[2024-03-21] MEDS: PROTONIX 40 MG PO (08:02)
[2024-03-21] MEDS: NORVASC 5 MG PO (08:02)
[2024-03-21] MEDS: NAMENDA 10 MG PO ×2 (08:02→20:08)
[2024-03-21] MEDS: KCL ELIXIR 40 MEQ PO (09:24)
[2024-03-21] MEDS: IMODIUM 2 MG PO (10:34)
[2024-03-21 11:00] VITALS: BP 122/66
--- NOTE | 2024-03-21 13:30 | W.PN.HOSP.TC ---
Today's Communication/Plan
-
Cont iv lasix
wean o2 as tolerated; Goal o2>92%
stop abx and monitor
Assessment / Plan
Assessment / Plan
Physical Exam
General: Well Developed, Well Nourished and No Apparent Distress
HEENT: NormoCephalic, Moist mucous membranes and Atraumatic
Respiratory: mild crackles at bases -improved from yesterday
Cardiac: S1/S2 and Regular Rhythm; No Murmur or Rub
GI: Soft, Non Tender, Non Distended and Normal Bowel Sounds; No Organomegaly
Rectal: Deferred by Provider
Musculoskeletal: No Clubbing, No Cyanosis and No Edema
Skin: No Rash
Neuro: Nonfocal/grossly intact
Psych: Anxious
# Acute hypoxic respiratory failure likely to pneumonia + ?acute HFpEF with severe TR
-minimal fluid for any safe thora
-cxr still persistent with pleural effusions
-cont abx
-f/u cultures
-MRSA neg
-stop vanc, zosyn
-Received 3 days ceftriaxone, azithromycin; remains afebrile; no purulent cough; no obvious source of infection�discontinue and monitor
-initiate lasix
-Engage Cards
-wean o2, o2 goal >92%
-IR consulted for thoracentesis - no safe fluid amount for tap
#Pleural effusions
-2/2 to Severe TR
- diuresis
-cards consult
�Monitor BMP with diuresis
#Hypernatremia
-mild
-ctm
� Resolved
# Hypokalemia likely from poor oral intake
-monitor and replete
-Continue to monitor BMP
# Ventricular bigeminy
-At present normal sinus rhythm
-most likely 2/2 to hypokalemia
-ctm
#Severe tricuspid regurgitation
#Suspected PAH
-start lasix
# Essential hypertension
-Norvasc continued with hold parameters
-continue hydralazine for SBP>170
# Dementia
-Aricept, memantine and sertraline continued
-Trazodone
# GERD
-PPI continued
# DVT prophylaxis
-heparin subcu
# CODE STATUS
-DNR
Anticipated Discharge: 24 - 48 hours
Subjective/Interval History
-
Date of Service: March 21, 2024
No acute events, weaned to 1 L
Objective Data
-
Labs:
Laboratory Results
03/21/24
06:08
WBC 7.5
Hgb 11.6 L
Hct 36.7 L
Plt Count 339
Sodium 143
Potassium 3.4 L
Chloride 102
Carbon Dioxide 32 H
BUN 17
Creatinine 1.1 H
Glucose 75
Calcium 8.5
Vital Signs:
Vital Signs
Temp Pulse Resp BP Pulse Ox
97.8 F 72 20 141/70 93
03/21/24 07:00 03/21/24 07:00 03/21/24 07:00 03/21/24 08:01 03/21/24 08:00
I&O
03/20/24 03/21/24 03/22/24
06:59 06:59 06:59
Intake Total 840 / 840 240 / 240
Balance 840 / 840 240 / 240
Review of Systems
-
History Source: Patient
All other systems: Not reviewed unless documented
Data Reviewed
-
Diagnostic Radiology: Image personally visualized and interpreted and Report Reviewed by me
Ultrasound: Report Reviewed by me
Labs: Labs Reviewed by me
--- NOTE | 2024-03-21 14:25 | W.PN.CARDCBS ---
Today's Communication / Plan
-
Continue gentle IV diuresis and wean oxygen as able
Hopefully transition to p.o. Lasix in the next 24 to 48 hours
Impression / Plan
-
Primary Contingents Supervisor: unknown
Assessment:
Presentation with SOB
Concern for PNA
Pleural effusions
Suspected acute HFpEF
Severe TR, concern for pulm HTN
Hypokalemia
Bradycardia
PVCs at times of pattern of bigeminy
dementia
HTN
GERD
ECHO 03/18/24: EF 55 to 60%, mild MR, mild to moderate AR, severe TR, PAP 55 mmHg, pleural effusion present
Plan:
-Patient presents from retirement with shortness of breath and concern for PNA.
-also noted to have pleural effusions by imaging. proBNP 5600.
-echo with preserved EF but severe TR and suspected pulm HTN. concern for component of acute CHF
-continue IV lasix 40mg daily.
-not on diuretic prior to admission. consider discharging on 20mg PO daily
-Cr up to 1.1, follow with diuresis
-replete K
-wean supp O2 as able
Progress Note - Contingents Supervisor
Subjective
Date of Service: March 21, 2024
No acute overnight events. Patient's resting comfortably in bed. No cardiac complaints at this time although history is limited by dementia.
Objective
Labs:
03/21/24 06:08
03/21/24 06:08
Labs
Hgb 11.6 g/dL (12.0-16.0) L 03/21/24 06:08
Hct 36.7 % (37.0-47.0) L 03/21/24 06:08
Plt Count 339 10^3/uL (130-400) 03/21/24 06:08
Sodium 143 mmol/L (135-145) 03/21/24 06:08
Potassium 3.4 mmol/L (3.5-5.1) L 03/21/24 06:08
BUN 17 mg/dl (7-17) 03/21/24 06:08
Creatinine 1.1 mg/dL (0.6-1.0) H 03/21/24 06:08
Glucose 75 mg/dl (70-99) 03/21/24 06:08
Vital Signs and I&O:
Vital Signs
Temp Pulse Resp BP Pulse Ox
97.8 F 69 18 122/66 95
03/21/24 11:00 03/21/24 11:00 03/21/24 11:00 03/21/24 11:00 03/21/24 11:00
Vital Signs
Temp Pulse Resp BP Pulse Ox
97.8 F 69 18 122/66 95
03/21/24 11:00 03/21/24 11:00 03/21/24 11:00 03/21/24 11:00 03/21/24 11:00
Intake & Output
03/19/24 03/20/24 03/21/24 03/22/24
06:59 06:59 06:59 06:59
Intake Total 1200 / 1200 840 / 840 240 / 240
Balance 1200 / 1200 840 / 840 240 / 240
Physical Exam
Physical Exam
Gen: NAD, AA, frail
HEENT: NC/AT, sclera anicteric
Neck: Elevated JVP
CV: RRR, NL s1/s2
Lungs: No increased WOB on 2L NC
Abd: S/ND
Ext: No LE edema
Skin: Warm, dry
Neuro: Non-focal
[2024-03-21 15:00] VITALS: BP 156/85
[2024-03-21 19:30] VITALS: BP 94/80
[2024-03-21] MEDS: ARICEPT 10 MG PO (21:35)
[2024-03-21] MEDS: DESYREL 100 MG PO (21:35)
[2024-03-21 23:30] VITALS: BP 105/62
[2024-03-22 03:30] VITALS: BP 121/58
[2024-03-22 07:10] VITALS: BP 121/62
[2024-03-22] MEDS: HEPARIN 5000 UNITS SC ×3 (07:54→23:45)
[2024-03-22] MEDS: LASIX 40 MG IV (07:54)
[2024-03-22] MEDS: ZOLOFT 50 MG PO (07:54)
[2024-03-22] MEDS: PROTONIX 40 MG PO (07:54)
[2024-03-22] MEDS: NORVASC 5 MG PO (07:54)
[2024-03-22] MEDS: NAMENDA 10 MG PO ×2 (07:54→21:22)
[2024-03-22 08:02] VITALS: BMI 12.7
[2024-03-22 08:09] LABS: Hematocrit 39.5 % (37.0-47.0); Hemoglobin 12.1 g/dL (12.0-16.0); Mean Corp Hgb Conc. 30.6 g/dL (33.0-37.0); Mean Corpuscular Hgb 28.4 pg (27.0-31.0); Mean Corpuscular Volume 92.7 fL (81.0-99.0); Mean Platelet Volume 9.5 fL (7.4-10.4); Platelet Count 355 10^3/uL (130-400); Red Blood Cell Count 4.26 10^6/uL (4.20-5.40); Red Cell Dist. Width 15.4 % (11.5-14.5); White Blood Cell Count 4.9 10^3/uL (4.8-10.8)
[2024-03-22 08:20] LABS: Blood Urea Nitrogen 21 mg/dl (7-17); Carbon Dioxide 29 mmol/L (22-30); Chloride 102 mmol/L (98-107); Estimated Creatinine Clearance 22 ml/min; Glucose 78 mg/dl (70-99); Potassium 3.5 mmol/L (3.5-5.1); Sodium 141 mmol/L (135-145); eGFR 43.15
[2024-03-22] MEDS: IMODIUM 2 MG PO (09:25)
--- NOTE | 2024-03-22 10:58 | W.PN.CARDCBS ---
Addendum entered and electronically signed by Kamran Sanchez MD 03/22/24 11:04:
Stable cardiac status, we will sign off, please recall as needed
Outpatient cardiology follow-up to be arranged
Original Note:
Today's Communication / Plan
-
Transition to p.o. Lasix 20 mg daily
Impression / Plan
-
Primary Wound Care Physician: unknown
Assessment:
Presentation with SOB
Concern for PNA
Pleural effusions
Suspected acute HFpEF
Severe TR, concern for pulm HTN
Hypokalemia
Bradycardia
PVCs at times of pattern of bigeminy
dementia
HTN
GERD
ECHO 03/18/24: EF 55 to 60%, mild MR, mild to moderate AR, severe TR, PAP 55 mmHg, pleural effusion present
Plan:
-Patient presents from [facility] with shortness of breath and concern for PNA.
-also noted to have pleural effusions by imaging. proBNP 5600.
-echo with preserved EF but severe TR and suspected pulm HTN. concern for component of acute CHF
-with rising Cr would transition to PO lasix
-Start PO lasix 20mg daily and continue on discharge
-wean supp O2 as able
Progress Note - Wound Care Physician
Subjective
Date of Service: March 22, 2024
No acute overnight events. Resting comfortably in bed today. No cardiac complaints. Still requiring supplemental oxygen but tells me breathing is comfortable.
Objective
Labs:
03/22/24 06:55
03/22/24 06:55
Labs
Hgb 12.1 g/dL (12.0-16.0) 03/22/24 06:55
Hct 39.5 % (37.0-47.0) 03/22/24 06:55
Plt Count 355 10^3/uL (130-400) 03/22/24 06:55
Sodium 141 mmol/L (135-145) 03/22/24 06:55
Potassium 3.5 mmol/L (3.5-5.1) 03/22/24 06:55
BUN 21 mg/dl (7-17) H 03/22/24 06:55
Creatinine 1.3 mg/dL (0.6-1.0) H 03/22/24 06:55
Glucose 78 mg/dl (70-99) 03/22/24 06:55
Vital Signs and I&O:
Vital Signs
Temp Pulse Resp BP Pulse Ox
97.9 F 73 20 121/62 97
03/22/24 07:10 03/22/24 07:10 03/22/24 07:10 03/22/24 07:10 03/22/24 08:00
Vital Signs
Temp Pulse Resp BP Pulse Ox
97.9 F 73 20 121/62 97
03/22/24 07:10 03/22/24 07:10 03/22/24 07:10 03/22/24 07:10 03/22/24 08:00
Intake & Output
03/20/24 03/21/24 03/22/24 03/23/24
06:59 06:59 06:59 06:59
Intake Total 840 / 840 240 / 240
Balance 840 / 840 240 / 240
Physical Exam
Physical Exam
Gen: NAD, AA, frail appearing
HEENT: NC/AT, sclera anicteric
Neck: Elevated JVP
CV: RRR, NL s1/s2
Lungs: CTAB
Abd: S/ND
Ext: No LE edema
Skin: Warm, dry
Neuro: Non-focal
[2024-03-22 12:15] VITALS: BP 118/54
--- NOTE | 2024-03-22 13:47 | W.PN.HOSP.TC ---
Today's Communication/Plan
-
20mg lasix daily
wean o2 as tolerated
f/u bmp outpt in 3 days
f/u pcp, cards outpt
Assessment / Plan
Assessment / Plan
Physical Exam
General: Well Developed, Well Nourished and No Apparent Distress
HEENT: NormoCephalic, Moist mucous membranes and Atraumatic
Respiratory: mild crackles at bases -improved from yesterday
Cardiac: S1/S2 and Regular Rhythm; No Murmur or Rub
GI: Soft, Non Tender, Non Distended and Normal Bowel Sounds; No Organomegaly
Rectal: Deferred by Provider
Musculoskeletal: No Clubbing, No Cyanosis and No Edema
Skin: No Rash
Neuro: Nonfocal/grossly intact
Psych: Anxious
# Acute hypoxic respiratory failure likely acute HFpEF with severe TR - improving; may need to go on 1L o2 with weaning off outpt
-minimal fluid for any safe thora
-cxr still persistent with pleural effusions
-cont abx
-f/u cultures
-MRSA neg
-stop vanc, zosyn
-Received 3 days ceftriaxone, azithromycin; remains afebrile; no purulent cough; no obvious source of infection�discontinue and monitor
-initiate lasix - switch to 20mg po lasix daily
-Engage Cards
-F/u Cards outpt
-F/u BMP outpt
-wean o2, o2 goal >92%
-IR consulted for thoracentesis - no safe fluid amount for tap
#Pleural effusions
-2/2 to Severe TR
- diuresis
-cards consult
�Monitor BMP with diuresis
-po 20mg lasix upon dc
#Hypernatremia
-mild
-ctm
� Resolved
# Hypokalemia likely from poor oral intake
-monitor and replete
-Continue to monitor BMP
# Ventricular bigeminy
-At present normal sinus rhythm
-most likely 2/2 to hypokalemia
-ctm
#Severe tricuspid regurgitation
#Suspected PAH
-start lasix
-F/u outpt
# Essential hypertension
-Norvasc continued with hold parameters
-continue hydralazine for SBP>170
# Dementia
-Aricept, memantine and sertraline continued
-Trazodone
# GERD
-PPI continued
# DVT prophylaxis
-heparin subcu
# CODE STATUS
-DNR
More than 30 minutes spent in discharge including
Final examination of the patient
Summarizing hospital stay
Instructions for continuing care to all relevant caregivers
Preparation of discharge records, prescriptions, and referral forms
Total time spent (35 in minutes):
Anticipated Discharge: Today
Subjective/Interval History
-
Date of Service: March 22, 2024
Slowly weaning off oxygen
Objective Data
-
Labs:
Laboratory Results
03/22/24
06:55
WBC 4.9
Hgb 12.1
Hct 39.5
Plt Count 355
Sodium 141
Potassium 3.5
Chloride 102
Carbon Dioxide 29
BUN 21 H
Creatinine 1.3 H
Glucose 78
Calcium 9.0
Vital Signs:
Vital Signs
Temp Pulse Resp BP Pulse Ox
97.6 F 73 16 118/54 90
03/22/24 12:15 03/22/24 12:15 03/22/24 12:15 03/22/24 12:15 03/22/24 12:15
I&O
03/21/24 03/22/24 03/23/24
06:59 06:59 06:59
Intake Total 240 / 240
Balance 240 / 240
Review of Systems
-
History Source: Patient
All other systems: Not reviewed unless documented
Data Reviewed
-
Diagnostic Radiology: Image personally visualized and interpreted and Report Reviewed by me
Ultrasound: Report Reviewed by me
Labs: Labs Reviewed by me
--- NOTE | 2024-03-22 14:00 | W.DS.TRANS ---
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
-
Discharge Instructions:
Discharge Diagnosis/Procedures
# Acute hypoxic respiratory failure likely to
acute HFpEF with severe TR
Diet Restrict fluids to 48 oz,Low Fat,Low Cholesterol
,2 Gram Sodium
Activity As tolerated
Blood Work bmp in 3 days monitoring Scr
Instructions: *[facility] Heart Failure Instructions
Stand-Alone Forms:
Changes to Home Medications: Yes
Discharge Medications:
DC Medications w/original date entered in [employer]
amlodipine 5 mg tablet 5 mg PO DAILY Blood Pressure 03/17/24
donepezil 10 mg tablet 10 mg PO HS Neurological Condition 03/17/24
loperamide 2 mg tablet 4 mg PO Q6H PRN loose stool 03/17/24
memantine 10 mg tablet 10 mg PO BID Neurological Condition 03/17/24
omeprazole 40 mg capsule,delayed release 40 mg PO DAILY Gastrointestinal Issue 03/17/24
ondansetron HCl 4 mg tablet 4 mg PO Q6H PRN nausea 03/17/24
sertraline 50 mg tablet 50 mg PO DAILY Mental Health/Anxiety 03/17/24
trazodone 100 mg tablet 100 mg PO HS Mental Health/Anxiety 03/17/24
furosemide 20 mg tablet 20 mg PO DAILY #0 tabs 03/22/24
Home Medication Changes
furosemide 20 mg tablet 20 mg PO DAILY #0 tabs 03/22/24
Pending Results: No
[2024-03-22 15:53] VITALS: BP 127/77
[2024-03-22] MEDS: ZOFRAN ODT (ORALLY DISINTEGRATING) 4 MG PO (20:34)
[2024-03-22 20:43] VITALS: BP 122/73
[2024-03-22] MEDS: DESYREL 100 MG PO (21:22)
[2024-03-22] MEDS: ARICEPT 10 MG PO (21:22)
[2024-03-22 23:11] VITALS: BP 135/85
[2024-03-23] VITALS (8 sets, daily range): BP systolic 105–134; BP diastolic 58–80; PULSE 84; O2SAT 97; BMI 13.5; BMI 11.9
--- NOTE | 2024-03-23 01:37 | W.PN.UPDATE ---
Update Note
Progress Note Update
RN notified [employer], patient is feeling nauseous and she takes Zofran SL at home as she gets nausea all the time. PO Zofran ordered.
RN notified later patient had frequent loose BM's and vomiting. no blood in stool or emesis. Patient is afebrile, denies myalgias, denies sweats.
On patient home med list there is Loperamide 4mg ordered prn cause unknown.
Since patient was on antibiotics and finished the course, will order stool for C-diff.
RN requesting stool for Norovirus as well. will order labs for electrolytes status
stable Vs.
labs noted, will order 250 IV NSS bolus once, awaiting morning labs.
[2024-03-23 02:26] LABS: Hematocrit 44.6 % (37.0-47.0); Hemoglobin 14.3 g/dL (12.0-16.0); Mean Corp Hgb Conc. 32.1 g/dL (33.0-37.0); Mean Corpuscular Hgb 28.3 pg (27.0-31.0); Mean Corpuscular Volume 88.1 fL (81.0-99.0); Mean Platelet Volume 9.2 fL (7.4-10.4); Platelet Count 424 10^3/uL (130-400); Red Blood Cell Count 5.06 10^6/uL (4.20-5.40); Red Cell Dist. Width 15.1 % (11.5-14.5)
[2024-03-23 02:52] LABS: Blood Urea Nitrogen 36 mg/dl (7-17); Calcium 9.8 mg/dl (8.4-10.2); Carbon Dioxide 24 mmol/L (22-30); Chloride 100 mmol/L (98-107); Estimated Creatinine Clearance 14 ml/min; Glucose 145 mg/dl (70-99); Magnesium 2.2 mg/dl (1.6-2.3); Potassium 3.5 mmol/L (3.5-5.1); Sodium 144 mmol/L (135-145); eGFR 25.73
[2024-03-23 08:32] LABS: Hematocrit 46.8 % (37.0-47.0); Hemoglobin 14.7 g/dL (12.0-16.0); Mean Corp Hgb Conc. 31.4 g/dL (33.0-37.0); Mean Corpuscular Hgb 28.7 pg (27.0-31.0); Mean Corpuscular Volume 91.4 fL (81.0-99.0); Mean Platelet Volume 9.4 fL (7.4-10.4); Platelet Count 462 10^3/uL (130-400); Red Blood Cell Count 5.12 10^6/uL (4.20-5.40); Red Cell Dist. Width 15.3 % (11.5-14.5); White Blood Cell Count 11.8 10^3/uL (4.8-10.8)
[2024-03-23] MEDS: ZOLOFT 50 MG PO (08:56)
[2024-03-23] MEDS: LASIX 20 MG PO (08:56)
[2024-03-23] MEDS: PROTONIX 40 MG PO (08:56)
[2024-03-23] MEDS: NORVASC 5 MG PO (08:56)
[2024-03-23] MEDS: HEPARIN 5000 UNITS SC ×3 (08:56→23:27)
[2024-03-23] MEDS: NAMENDA 10 MG PO ×2 (08:56→20:30)
[2024-03-23] MEDS: NSS 250 IV (09:05)
[2024-03-23 09:08] LABS: Blood Urea Nitrogen 41 mg/dl (7-17); Calcium 9.7 mg/dl (8.4-10.2); Carbon Dioxide 24 mmol/L (22-30); Chloride 100 mmol/L (98-107); Estimated Creatinine Clearance 10 ml/min; Glucose 134 mg/dl (70-99); Potassium 3.7 mmol/L (3.5-5.1); Sodium 145 mmol/L (135-145); eGFR 17.95
--- NOTE | 2024-03-23 09:23 | W.PN.HOSP.TC ---
Addendum entered and electronically signed by David Mcclendon DO 03/23/24 15:37:
Acute hypoxic respiratory insufficiency
Severe protein calorie malnutrition
Original Note:
Today's Communication/Plan
-
IV fluids
Stop Lasix
Bladder scan
Repeat labs in the morning
Assessment / Plan
Assessment / Plan
Gen-awake, alert, NAD
HEENT-NC, AT, anicteric, clear oral mm
Neck-supple
CV-reg, no M, +S1/S2
Lungs-clear B/L
Abd-soft, NT, ND
Ext-no edema
Musculoskeletal-no cyanosis, clubbing
Skin-warm and dry
Neuro-grossly non-focal
Psych-calm, cooperative
EFRA -likely due to volume depletion due to GI losses from acute diarrhea as well as diuresis. Hold further Lasix. IV fluid, recheck labs in the morning. Check bladder scan. Discussed with nursing.
Acute gastroenteritis -check stool studies, rule out norovirus. Stool negative for C. difficile.
Acute hypoxic respiratory failure - likely acute HFpEF along with bilateral pleural effusions. BNP 5600.
-minimal fluid for any safe thora
-cxr still persistent with pleural effusions
-MRSA neg
Clinically doubt pneumonia. Antibiotics discontinued. Admission procalcitonin normal.
Bilateral pleural effusions -moderate on the left, small on the right noted on admission chest x-ray. Repeat chest x-ray from 03/19 shows moderate bilateral pleural effusions. Etiology of effusions is likely due to acute heart failure exacerbation.
Hypernatremia -resolved.
Hypokalemia -resolved.
Ventricular bigeminy
-At present normal sinus rhythm
-most likely 2/2 to hypokalemia
Severe tricuspid regurgitation
#Suspected PAH
-start lasix
-F/u outpt
Essential hypertension
-Norvasc continued with hold parameters
-continue hydralazine for SBP>170
Dementia, likely Alzheimer's type
-Aricept, memantine and sertraline continued
-Trazodone
GERD
-PPI continued
DVT prophylaxis
-heparin subcu
CODE STATUS
-DNR
Anticipated Discharge: 24 - 48 hours
Subjective/Interval History
-
Date of Service: March 23, 2024
Patient seen and examined. No complaints.
Objective Data
-
Labs:
Laboratory Results
03/23/24 03/23/24
02:21 07:54
WBC 14.0 H 11.8 H
Hgb 14.3 14.7
Hct 44.6 46.8
Plt Count 424 H 462 H
Sodium 144 145
Potassium 3.5 3.7
Chloride 100 100
Carbon Dioxide 24 24
BUN 36 H 41 H
Creatinine 2.0 H 2.7 H
Glucose 145 H 134 H
Calcium 9.8 9.7
Vital Signs:
Vital Signs
Temp Pulse Resp BP Pulse Ox
98.7 F 102 20 114/80 94
03/23/24 07:20 03/23/24 07:20 03/23/24 07:20 03/23/24 07:20 03/23/24 07:20
I&O
03/22/24 03/23/24 03/24/24
06:59 06:59 06:59
Intake Total 960 / 960
Balance 960 / 960
Review of Systems
-
History Source: Patient
All other systems: Reviewed and negative
--- NOTE | 2024-03-23 10:29 | PN.CDI ---
CDI
- -
CDI:
Physician Documentation Request
Admit Date: 03/17/24 18:09
Dear Doctor Hakan,
03/18 note and assessment 'Assessment - Muscle loss over temporal severity - severe. BMI 14.2 underweight. Patient meets AND and ASPEN criteria for severe protein calorie malnutrition of chronic illness due to intake of less than 75% of needs for
more than one month and for severe muscle loss of temporal area'
Based on the above information and your assessment, which of the following most accurately represents the patient's nutritional status?
Severe Malnutrition
Other (please specify)
[place]agan Criteria ([facility] Hospitalist 2017)
2 or more criteria must be present for either
non severe or severe malnutrition
Note that the criteria differs related to the
presence of an acute or chronic illness
Acute Illness Chronic Illness
Energy Intake Non Severe: <75% for >7 days Non Severe: <75% for >1 month
Severe: <50% for >5 days Severe: <75% for >1 month
Weight Loss Non Severe: 1-2% over 1 week Non Severe: 5% over 1 month
5% over 1 month 7.5% over 3 months
7.5% over 3 months 10% over 6 months
1 year N/A 20% over 1 year
Severe: >2% over 1 week Severe: >5% over 1 month
>5% over 1 month >7.5% over 3 months
>7.5% over 3 months >10% over 6 months
1 year N/A >20% over 1 year
Body Fat Non Severe: Mild Decrease Non Severe: Mild Loss
Severe: Moderate Decrease Severe: Severe Loss
Muscle Mass Non Severe: Mild Decrease Non Severe: Mild Loss
Severe: Moderate Decrease Severe: Severe Loss
Fluid Accumulation Non Severe: Mild Accumulation Non Severe: Mild Accumulation
Severe: Moderate to severe Severe: Moderate to severe
accumulation accumulation
Reduced Hog Cutter Strength Non Severe: N/A Non Severe: N/A
Severe: Measurably reduced Severe: Measurably reduced
Use of terms such as suspected, likely, concern for, or probable (associated with a specific diagnosis that is being evaluated, monitored, or treated as if it exists) are acceptable and can be coded in the inpatient setting, when documented at the
time of discharge.
Thank you,
Elidia Graham RN, BSN
CDI Specialist
tiger text
Please use your independent medical judgment in providing your response.
--- NOTE | 2024-03-23 10:30 | PN.CDI ---
CDI
- -
CDI:
Physician Documentation Request
Admit Date: 03/17/24 18:09
Dear Doctor Hakan,
H&P and Hospitalist progress notes contain a diagnosis of Acute hypoxic respiratory failure.
Per documented vital signs patient has not exceeded 3L O2.
H&P physical exam 'respiratory: clear'
ED exam 'Lung: Tachypneic, bibasilar crackles'
Recognized standard criteria for respiratory failure includes:
(Source: [facility] Hospitalist Feb 2013)
ABGs (1 or more)
�PO2 <60 or RA SpO2 <91%
�PcO2 >50 and pH <7.35
�pO2 decrease or pcO2 increase by 10 mmHg from baseline if known Symptoms:
�Tachypnea, SOB, dyspnea
�Pallor or cyanosis
�Anxiety or restlessness
�Use of accessory muscles
�Retractions (grunting in newborns)
�Unable to speak in complete sentences
Supplemental O2 requirement of 40% (5LPM) or more Intubation is not required
Based on the above information and the recognized standard for respiratory failure could you please verify this diagnoses is still accurate and reflective of the patient�s condition to ensure quality of the medical record.
Please clarify in the Progress Notes:
�Respiratory failure is/was present and is a clinical diagnosis based on (please include this additional support in the medical record)
�After study respiratory failure has been ruled out
�Other
Use of terms such as suspected, likely, concern for, or probable (associated with a specific diagnosis that is being evaluated, monitored, or treated as if it exists) are acceptable and can be coded in the inpatient setting, when documented at the
time of discharge.
Thank you,
Elidia Graham RN, BSN
CDI Specialist
tiger text
Please use your independent medical judgment in providing your response.
--- NOTE | 2024-03-23 14:59 | CM ---
Chart reviewed. Pt is a resident at [facility] unit
Plan of care ongoing
Cont on 2L O2
Repeat labs in the morning, per hospitalist note
Plan: Return to the [place] when medically stable
[2024-03-23] MEDS: NSS 1000 IV (16:59)
[2024-03-23] MEDS: DESYREL 100 MG PO (20:30)
[2024-03-23] MEDS: ARICEPT 10 MG PO (20:30)
[2024-03-24 03:16] VITALS: BP 116/56
[2024-03-24 03:52] VITALS: BMI 12.9
[2024-03-24] MEDS: HEPARIN 5000 UNITS SC ×3 (07:53→23:30)
[2024-03-24] MEDS: ZOLOFT 50 MG PO (07:53)
[2024-03-24] MEDS: PROTONIX 40 MG PO (07:53)
[2024-03-24] MEDS: NAMENDA 10 MG PO ×2 (07:53→21:39)
[2024-03-24] MEDS: NORVASC 5 MG PO (07:58)
[2024-03-24 08:00] VITALS: BP 121/62
--- NOTE | 2024-03-24 08:23 | W.PN.HOSP.TC ---
Today's Communication/Plan
-
Await labs
Assessment / Plan
Assessment / Plan
Gen-awake, alert, NAD
HEENT-NC, AT, anicteric, clear oral mm
Neck-supple
CV-reg, no M, +S1/S2
Lungs-clear B/L
Abd-soft, NT, ND
Ext-no edema
Musculoskeletal-no cyanosis, clubbing
Skin-warm and dry
Neuro-grossly non-focal
Psych-calm, cooperative
EFRA -likely due to volume depletion due to GI losses from acute diarrhea as well as diuresis. Hold further Lasix. Awaiting labs for today.
Acute gastroenteritis -check stool studies, rule out norovirus. Stool negative for C. difficile.
Acute hypoxic respiratory failure - likely acute HFpEF along with bilateral pleural effusions. BNP 5600.
-minimal fluid for any safe thora
-cxr still persistent with pleural effusions
-MRSA neg
Clinically doubt pneumonia. Antibiotics discontinued. Admission procalcitonin normal.
Bilateral pleural effusions -moderate on the left, small on the right noted on admission chest x-ray. Repeat chest x-ray from 03/19 shows moderate bilateral pleural effusions. Etiology of effusions is likely due to acute heart failure exacerbation.
Hypernatremia -resolved.
Hypokalemia -resolved.
Ventricular bigeminy
-At present normal sinus rhythm
-most likely 2/2 to hypokalemia
Severe tricuspid regurgitation
#Suspected PAH
-start lasix
-F/u outpt
Essential hypertension
-Norvasc continued with hold parameters
-continue hydralazine for SBP>170
Dementia, likely Alzheimer's type
-Aricept, memantine and sertraline continued
-Trazodone
GERD
-PPI continued
DVT prophylaxis
-heparin subcu
CODE STATUS
-DNR
Dispo -pending clinical improvement of renal failure.
Anticipated Discharge: Within 24 hours
Subjective/Interval History
-
Date of Service: March 24, 2024
Patient seen and examined. Feeling better, no complaints.
Objective Data
-
Labs:
Laboratory Results
03/24/24
06:00
Sodium Pending
Potassium Pending
Chloride Pending
Carbon Dioxide Pending
BUN Pending
Creatinine Pending
Glucose Pending
Calcium Pending
Vital Signs:
Vital Signs
Temp Pulse Resp BP Pulse Ox
97.0 F 87 18 116/56 97
03/24/24 03:16 03/24/24 03:16 03/24/24 03:16 03/24/24 03:16 03/24/24 03:16
I&O
03/23/24 03/24/24 03/25/24
06:59 06:59 06:59
Intake Total 960 / 960 1400 / 1400
Balance 960 / 960 1400 / 1400
Review of Systems
-
History Source: Patient
All other systems: Reviewed and negative
[2024-03-24 09:38] LABS: Blood Urea Nitrogen 50 mg/dl (7-17); Carbon Dioxide 19 mmol/L (22-30); Chloride 100 mmol/L (98-107); Estimated Creatinine Clearance 10 ml/min; Glucose 71 mg/dl (70-99); Potassium 3.1 mmol/L (3.5-5.1); Sodium 140 mmol/L (135-145); eGFR 15.82
[2024-03-24 11:12] VITALS: BP 116/53
[2024-03-24] MEDS: KCL 40 MEQ PO (12:37)
--- NOTE | 2024-03-24 14:47 | W.CON.NEPH ---
Consultation
-
Date/Time Consultation Requested: 03/24/2024 11:00 AM
Date/Time Consultation Performed: 03/24/2024 2:45 PM
Requesting Provider: Dr. Mcclendon
Performing Provider: Dr. Bullock
Reason for Consultation: EFRA
Medical History
-
Chief Complaint: Acute kidney injury metabolic acidosis
History of Present Illness:
73-year-old female with history of dementia, hypertension (maintained amlodipine) , GERD on PPI, depression on sertraline presented from the [facility] due to rapid breathing and low heart rate. Poor historian with poor PO intake over
the last week because she doesn't like the food. Denies fever, chills, nausea, vomiting, dysuria, hematuria. Patient was hypoxic on admission and noted to have pleural effusions and possibly underlying pneumonia. Patient was noted to be in
ventricular bigeminy on presentation and was profoundly hypokalemic. Nephrology has been consulted as over the course of his admission his creatinine is gone from 0.9-3.
Past Medical History
Hypertension
Dementia
Depression
GERD
IBS
Social History
Tobacco: Former Smoker
Alcohol: None
Family History
Family History: Not Pertinent
Allergies / Home Medications
Allergy/AdvReac Type Severity Reaction Status Date / Time
No Known Allergies Allergy Unverified 03/17/24 14:57
�Medication �Instructions �Recorded �Confirmed �Type
amlodipine 5 mg tablet 5 mg PO DAILY Blood Pressure 03/17/24 03/17/24 History
donepezil 10 mg tablet 10 mg PO HS Neurological Condition 03/17/24 03/17/24 History
loperamide 2 mg tablet 4 mg PO Q6H PRN loose stool 03/17/24 03/17/24 History
memantine 10 mg tablet 10 mg PO BID Neurological Condition 03/17/24 03/17/24 History
omeprazole 40 mg capsule,delayed 40 mg PO DAILY Gastrointestinal 03/17/24 03/17/24 History
release Issue
ondansetron HCl 4 mg tablet 4 mg PO Q6H PRN nausea 03/17/24 03/17/24 History
sertraline 50 mg tablet 50 mg PO DAILY Mental 03/17/24 03/17/24 History
Health/Anxiety
trazodone 100 mg tablet 100 mg PO HS Mental Health/Anxiety 03/17/24 03/17/24 History
furosemide 20 mg tablet 20 mg PO DAILY #0 tabs 03/22/24 Rx
Review of Systems
-
History Source: Patient
All other systems: Negative unless noted
Constitutional: Weight Loss and Fatigue
Respiratory: Trouble Breathing
Cardiac: No Symptoms
Abdomen/GI: Nausea and Vomiting
: Other (decreased uop)
Physical Exam
Vital Signs
Vital Signs
Temp Pulse Resp BP Pulse Ox
97.8 F 76 16 116/53 97
03/24/24 11:12 03/24/24 11:12 03/24/24 11:12 03/24/24 11:12 03/24/24 11:12
Lab Results
03/23/24 07:54
03/24/24 08:35
WBC 11.8 10^3/uL (4.8-10.8) H 03/23/24 07:54
RBC 5.12 10^6/uL (4.20-5.40) 03/23/24 07:54
Hgb 14.7 g/dL (12.0-16.0) 03/23/24 07:54
Hct 46.8 % (37.0-47.0) 03/23/24 07:54
Plt Count 462 10^3/uL (130-400) H 03/23/24 07:54
Sodium 140 mmol/L (135-145) 03/24/24 08:35
Potassium 3.1 mmol/L (3.5-5.1) L 03/24/24 08:35
Chloride 100 mmol/L (98-107) 12/10/24 08:35
Carbon Dioxide 19 mmol/L (22-30) L 03/24/24 08:35
BUN 50 mg/dl (7-17) H 03/24/24 08:35
Creatinine 3.0 mg/dL (0.6-1.0) H 03/24/24 08:35
eGFR 15.82 03/24/24 08:35
Glucose 71 mg/dl (70-99) 03/24/24 08:35
Calcium 9.0 mg/dl (8.4-10.2) 03/24/24 08:35
Hse-K-Aqmnpiqjclc Pept 5600 pg/ml 03/17/24 14:05
Albumin 3.6 g/dl (3.5-5.0) 03/17/24 14:05
Physical Exam
General: AOx3, cachectic, respiratory distress
HEENT: PERRL, EOMI, Anicteric, Conjunctivae Clear, Ear/Nose Intact, Hearing Normal, Oropharynx Clear/Moist, Dentition Intact, Facial Symmetry, Neck Supple, Neck: Trachea Midline, No JVD and No Thyromegaly, no Bruits
Respiratory:coarse to auscultation bilaterally with normal lung exersion
Cardiac: S1/S2 and Regular Rate/Rhythm
Breast: Deferred by me
Abdomen: Soft, Nontender, Nondistended, Normal Bowel Sounds and No Hepatosplenomegaly
Rectal: Deferred by Provider
Genito-urinary: No Costovertebral Tenderness
Extremities: No Clubbing, No Cyanosis and No Edema
Skin: No Rash or open lesions
Neuro: Nonfocal/Grossly Intact, CN II-XII (Intact) and Strength (Musculoskeletal exam 5 out of 5 both upper and lower extremities)
Hematologic/Lymphatic: No Cervical Lymphadenopathy, No Submandibular Lymphadenopathy and No Supraclavicular Lymphadenopathy
Psych: Mood/afflect fact, Insight/judgement good and Appropriate
Vascular: plus 1 pedal and radial pulses
Data Reviewed
-
Radiology: Image Personally Visualized and interpreted (Chest x-ray reviewed from admission showed bilateral lower lung opacities and/or effusions)
Labs: Labs Reviewed by me (bmp , cbc)
Old Records: Reviewed (Creatinine 1.0 from electronic medical record from date 02/05/2024)
Assessment/Plan
-
Impression:
EFRA
Metabolic acidosis
Acute hypoxic respiratory failure
Concern for PNA vs CHF
Bilateral pleural effusions
Suspected acute HFpEF
Severe TR, concern for pulm HTN
Hypokalemia
Bradycardia
PVCs at times of pattern of bigeminy
dementia
HTN
GERD
Severe TR
Acute Gastritis
Plan:
EFRA:
-Check kidney and bladder ultrasound in am
-bladder scan(less then 50cc)
-check UA, urine sodium, urine creatinine
-Patient had been on vancomycin and Zosyn will check urine eosinophils for drug-induced interstitial nephritis
-Check Fractional excretion of sodium for suspected pre renal stimulus
-holding diuretics, weights decreased by 7 kg since admission
-Patient respiratory status appears to be worsening
[2024-03-24 15:27] VITALS: BP 141/69
[2024-03-24 20:13] VITALS: BP 150/74
[2024-03-24] MEDS: ARICEPT 10 MG PO (21:39)
[2024-03-24] MEDS: DESYREL 100 MG PO (21:39)
[2024-03-25 06:00] VITALS: BMI 11.8
[2024-03-25 07:00] VITALS: BP 157/80
[2024-03-25 08:40] LABS: Blood Urea Nitrogen 53 mg/dl (7-17); Calcium 9.1 mg/dl (8.4-10.2); Carbon Dioxide 15 mmol/L (22-30); Chloride 105 mmol/L (98-107); Estimated Creatinine Clearance 11 ml/min; Glucose 79 mg/dl (70-99); Potassium 3.1 mmol/L (3.5-5.1); Sodium 140 mmol/L (135-145); eGFR 19.69
[2024-03-25] MEDS: NORVASC 5 MG PO (10:04)
[2024-03-25] MEDS: HEPARIN 5000 UNITS SC ×3 (10:04→23:12)
[2024-03-25] MEDS: PROTONIX 40 MG PO (10:04)
[2024-03-25] MEDS: ZOLOFT 50 MG PO (10:04)
[2024-03-25] MEDS: NAMENDA 10 MG PO ×2 (10:04→20:59)
[2024-03-25 11:00] VITALS: BP 154/78
[2024-03-25] MEDS: KCL 40 MEQ PO (13:29)
--- NOTE | 2024-03-25 13:47 | W.PN.HOSP.TC ---
Today's Communication/Plan
-
Renal ultrasound
IV fluids
Urine studies
Labs in the morning
Assessment / Plan
Assessment / Plan
Gen-awake, alert, NAD
HEENT-NC, AT, anicteric, clear oral mm
Neck-supple
CV-reg, no M, +S1/S2
Lungs-clear B/L
Abd-soft, NT, ND
Ext-no edema
Musculoskeletal-no cyanosis, clubbing
Skin-warm and dry
Neuro-grossly non-focal
Psych-calm, cooperative
EFRA -likely due to volume depletion due to GI losses from acute diarrhea as well as diuresis. Hold further Lasix. Creatinine trending down. Nephrology following. Renal ultrasound pending. IV fluids ordered. High anion gap metabolic acidosis
noted, AG 20.
Urine studies pending.
Acute norovirus gastroenteritis -continue supportive care.
Acute hypoxic respiratory failure - likely acute HFpEF along with bilateral pleural effusions. BNP 5600.
-minimal fluid for any safe thora
-cxr still persistent with pleural effusions
-MRSA neg
Clinically doubt pneumonia. Antibiotics discontinued. Admission procalcitonin normal.
Bilateral pleural effusions -moderate on the left, small on the right noted on admission chest x-ray. Repeat chest x-ray from 03/19 shows moderate bilateral pleural effusions. Etiology of effusions is likely due to acute heart failure exacerbation.
Hypernatremia -resolved.
Hypokalemia -continue repletion. Check magnesium.
Ventricular bigeminy
-At present normal sinus rhythm
-most likely 2/2 to hypokalemia
Severe tricuspid regurgitation
#Suspected PAH
-start lasix
-F/u outpt
Essential hypertension
-Norvasc continued with hold parameters
-continue hydralazine for SBP>170
Dementia, likely Alzheimer's type
-Aricept, memantine and sertraline continued
-Trazodone
GERD
-PPI continued
DVT prophylaxis
-heparin subcu
DNR
Dispo -pending clinical improvement of renal failure. Plan is to return to [facility] when medically stable.
Anticipated Discharge: 24 - 48 hours
Subjective/Interval History
-
Date of Service: March 25, 2024
Patient seen and examined. No complaints.
Objective Data
-
Labs:
Laboratory Results
03/25/24
06:51
Sodium 140
Potassium 3.1 L
Chloride 105
Carbon Dioxide 15 L
BUN 53 H
Creatinine 2.5 H
Glucose 79
Calcium 9.1
Vital Signs:
Vital Signs
Temp Pulse Resp BP Pulse Ox
97.8 F 73 18 154/78 98
03/25/24 11:00 03/25/24 11:00 03/25/24 11:00 03/25/24 11:00 03/25/24 11:00
I&O
03/24/24 03/25/24 03/26/24
06:59 06:59 06:59
Intake Total 1400 / 1400 720 / 720
Balance 1400 / 1400 720 / 720
Review of Systems
-
History Source: Patient
All other systems: Reviewed and negative
--- NOTE | 2024-03-25 13:58 | W.PN.NEPH.PH ---
Today's Communication / Plan
-
Encourage oral intake
Assessment/Plan
-
Impression:
EFRA
Metabolic acidosis
Acute hypoxic respiratory failure
Concern for PNA vs CHF
Bilateral pleural effusions
Suspected acute HFpEF
Severe TR, concern for pulm HTN
Hypokalemia
Bradycardia
PVCs at times of pattern of bigeminy
dementia
HTN
GERD
Severe TR
Acute Gastritis
Plan:
Follow BMP
replace potassium
Oral bicarbonate
Repeat urine studies with development of metabolic acidosis
-
-
Date of Service: March 25, 2024
CC / HPI / ROS
-
Chief Complaint:
EFRA
History of Present Illness:
EFRA/creatinine down to 2.5
BP high but stable
worsening metabolic acidosis, 15
Potassium 3.1
Review of Systems:
Malaise
Poor oral intake
Labs
-
Labs:
WBC 11.8 10^3/uL (4.8-10.8) H 03/23/24 07:54
RBC 5.12 10^6/uL (4.20-5.40) 03/23/24 07:54
Hgb 14.7 g/dL (12.0-16.0) 03/23/24 07:54
Hct 46.8 % (37.0-47.0) 03/23/24 07:54
Plt Count 462 10^3/uL (130-400) H 03/23/24 07:54
Sodium 140 mmol/L (135-145) 03/25/24 06:51
Potassium 3.1 mmol/L (3.5-5.1) L 03/25/24 06:51
Chloride 105 mmol/L (98-107) 03/25/24 06:51
Carbon Dioxide 15 mmol/L (22-30) L 03/25/24 06:51
BUN 53 mg/dl (7-17) H 03/25/24 06:51
Creatinine 2.5 mg/dL (0.6-1.0) H 03/25/24 06:51
eGFR 19.69 03/25/24 06:51
Glucose 79 mg/dl (70-99) 03/25/24 06:51
Calcium 9.1 mg/dl (8.4-10.2) 03/25/24 06:51
Uob-W-Krqlyyolmsb Pept 5600 pg/ml 03/17/24 14:05
Albumin 3.6 g/dl (3.5-5.0) 03/17/24 14:05
Physical Exam
-
Vital Signs:
Vital Signs
Temp Pulse Resp BP Pulse Ox
97.8 F 73 18 154/78 98
03/25/24 11:00 03/25/24 11:00 03/25/24 11:00 03/25/24 11:00 03/25/24 11:00
Cardiovascular:: Regular rate and rhythm
Respiratory:: Bilateral: CTA
Lung Excursion:: Normal
Abdomen:: Nontender and Soft
Bowel Sounds:: Normal
Extremity Edema:: None: Bilateral:
--- NOTE | 2024-03-25 14:10 | CM ---
Chart reviewed. Pt currently dx w/ norovirus and on precautions at this time.
Nephrology following.
PT/OT currently recommending SNF. Norovirus may be contributing to weakness, per PT, may need rehab once recovered.
PT/OT will cont to follow and assess
Plan: PT/OT currently recommending skilled rehab
[2024-03-25 14:29] LABS: Magnesium 2.3 mg/dl (1.6-2.3)
[2024-03-25 15:00] VITALS: BP 102/75
[2024-03-25] MEDS: LR 1000 IV (15:59)
[2024-03-25] MEDS: SODIUM BICARBONATE 650 MG PO ×2 (16:01→21:01)
[2024-03-25 19:30] VITALS: BP 145/80
[2024-03-25] MEDS: KCL 20 MEQ PO (20:59)
[2024-03-25] MEDS: ARICEPT 10 MG PO (21:00)
[2024-03-25] MEDS: DESYREL 100 MG PO (21:00)
[2024-03-25 23:30] VITALS: BP 138/69
[2024-03-26 03:30] VITALS: BP 119/73
[2024-03-26 06:00] VITALS: BMI 12.1
[2024-03-26 07:00] VITALS: BP 148/76
[2024-03-26 08:17] LABS: Blood Urea Nitrogen 51 mg/dl (7-17); Calcium 8.9 mg/dl (8.4-10.2); Carbon Dioxide 13 mmol/L (22-30); Chloride 109 mmol/L (98-107); Estimated Creatinine Clearance 14 ml/min; Glucose 84 mg/dl (70-99); Potassium 3.9 mmol/L (3.5-5.1); Sodium 138 mmol/L (135-145); eGFR 25.73
--- NOTE | 2024-03-26 08:59 | W.PN.HOSP.TC ---
Today's Communication/Plan
-
Loperamide as needed
Bicarb drip
Assessment / Plan
Assessment / Plan
Gen-awake, alert, NAD
HEENT-NC, AT, anicteric, clear oral mm
Neck-supple
CV-reg, no M, +S1/S2
Lungs-clear B/L
Abd-soft, NT, ND
Ext-no edema
Musculoskeletal-no cyanosis, clubbing
Skin-warm and dry
Neuro-grossly non-focal
Psych-calm, cooperative, confused
EFRA -likely due to volume depletion due to GI losses from acute diarrhea as well as diuresis. Lasix on hold. Creatinine trending down. Nephrology following. Renal ultrasound without hydronephrosis but does show possible tiny nonobstructing right
renal stone.
Gap metabolic acidosis with worsening acidemia likely due to GI losses. Bicarb 13. Start sodium bicarbonate drip.
Acute norovirus gastroenteritis -continue supportive care. Still with diarrhea. Loperamide as needed ordered. Discussed with nursing.
Acute hypoxic respiratory failure - likely acute HFpEF along with bilateral pleural effusions. BNP 5600.
-minimal fluid for any safe thora
-cxr still persistent with pleural effusions
-MRSA neg
Clinically doubt pneumonia. Antibiotics discontinued. Admission procalcitonin normal.
Bilateral pleural effusions -moderate on the left, small on the right noted on admission chest x-ray. Repeat chest x-ray from 03/19 shows moderate bilateral pleural effusions. Etiology of effusions is likely due to acute heart failure exacerbation.
Hypernatremia -resolved.
Hypokalemia -improving. Magnesium was normal yesterday.
Ventricular bigeminy
-At present normal sinus rhythm
-most likely 2/2 to hypokalemia
Severe tricuspid regurgitation
#Suspected PAH
-start lasix
-F/u outpt
Essential hypertension
-Norvasc continued with hold parameters
-continue hydralazine for SBP>170
Dementia, likely Alzheimer's type
-Aricept, memantine and sertraline continued
-Trazodone
GERD
-PPI continued
DVT prophylaxis
-heparin subcu
DNR
Dispo -pending clinical improvement of renal failure. Plan is to return to [facility] care unit when medically stable.
Patient unable to tell me if she has any family that I can call.
Anticipated Discharge: Within 24 hours
Subjective/Interval History
-
Date of Service: March 26, 2024
Patient seen and examined. Confused. No complaints.
Objective Data
-
Labs:
Laboratory Results
03/26/24
06:49
Sodium 138
Potassium 3.9 D
Chloride 109 H
Carbon Dioxide 13 L*
BUN 51 H
Creatinine 2.0 H
Glucose 84
Calcium 8.9
Vital Signs:
Vital Signs
Temp Pulse Resp BP Pulse Ox
97.5 F 83 16 119/73 96
03/26/24 03:30 03/26/24 03:30 03/26/24 03:30 03/26/24 03:30 03/26/24 03:30
I&O
03/25/24 03/26/24 03/27/24
06:59 06:59 06:59
Intake Total 720 / 720 660 / 660
Balance 720 / 720 660 / 660
Review of Systems
-
Unable to obtain full review of systems at this time due to: Dementia and Acuity
[2024-03-26 09:40] LABS: Urine Albumin Trace (Neg - Trace); Urine Bilirubin Negative (Negative); Urine Character Slightly Cloudy (Clear); Urine Color Yellow; Urine Glucose Negative (Negative); Urine Ketone Trace (Negative); Urine Leukocyte Trace (Negative); Urine Nitrite Negative (Negative); Urine Occult Blood 1+ (Negative); Urine Urobilinogen Negative (Neg - 1+)
[2024-03-26] MEDS: NORVASC 5 MG PO (10:28)
[2024-03-26] MEDS: HEPARIN 5000 UNITS SC ×3 (10:28→23:38)
[2024-03-26] MEDS: KCL 20 MEQ PO ×2 (10:28→21:18)
[2024-03-26] MEDS: PROTONIX 40 MG PO (10:28)
[2024-03-26] MEDS: IMODIUM 2 MG PO (10:28)
[2024-03-26] MEDS: SODIUM BICARBONATE 650 MG PO ×3 (10:28→21:20)
[2024-03-26] MEDS: NAMENDA 10 MG PO ×2 (10:29→21:18)
[2024-03-26] MEDS: SODIUM BICARBONATE 1150 MEQ IV (10:29)
[2024-03-26] MEDS: ZOLOFT 50 MG PO (10:29)
[2024-03-26 10:52] LABS: Urine Mucus Moderate; Urine Squamous Cell 26-30 /LPF (Few)
[2024-03-26 10:53] LABS: Urine Amorphous Seen
[2024-03-26 10:55] LABS: Urine White Cell 0-2 /HPF (0-5)
[2024-03-26 10:56] LABS: Urine Bacteria Many (Negative)
[2024-03-26 11:00] VITALS: BP 114/67
[2024-03-26 12:07] LABS: Urine Sodium 8 mmol/L (30-90)
--- NOTE | 2024-03-26 13:09 | W.PN.NEPH.PH ---
Today's Communication / Plan
-
IV fluid with bicarbonate
Assessment/Plan
-
Impression:
EFRA
Metabolic acidosis
Acute hypoxic respiratory failure
Concern for PNA vs CHF
Bilateral pleural effusions
Suspected acute HFpEF
Severe TR, concern for pulm HTN
Hypokalemia
Bradycardia
PVCs at times of pattern of bigeminy
dementia
HTN
GERD
Severe TR
Acute Gastritis
Plan:
Follow BMP
replace potassium as needed
Oral bicarbonate
No evidence of RTA
IV fluids with bicarbonate
-
-
Date of Service: March 26, 2024
CC / HPI / ROS
-
Chief Complaint:
EFRA
History of Present Illness:
EFRA/creatinine down to 2.0
BP high but stable
worsening metabolic acidosis, 13
Potassium 3.9
Review of Systems:
Malaise
No oral intake
Labs
-
Labs:
WBC 11.8 10^3/uL (4.8-10.8) H 03/23/24 07:54
RBC 5.12 10^6/uL (4.20-5.40) 03/23/24 07:54
Hgb 14.7 g/dL (12.0-16.0) 03/23/24 07:54
Hct 46.8 % (37.0-47.0) 03/23/24 07:54
Plt Count 462 10^3/uL (130-400) H 03/23/24 07:54
Sodium 138 mmol/L (135-145) 03/26/24 06:49
Potassium 3.9 mmol/L (3.5-5.1) D 03/26/24 06:49
Chloride 109 mmol/L (98-107) H 03/26/24 06:49
Carbon Dioxide 13 mmol/L (22-30) L* 03/26/24 06:49
BUN 51 mg/dl (7-17) H 03/26/24 06:49
Creatinine 2.0 mg/dL (0.6-1.0) H 03/26/24 06:49
eGFR 25.73 03/26/24 06:49
Glucose 84 mg/dl (70-99) 03/26/24 06:49
Calcium 8.9 mg/dl (8.4-10.2) 03/26/24 06:49
Mnz-O-Tqecdgqvbmk Pept 5600 pg/ml 03/17/24 14:05
Albumin 3.6 g/dl (3.5-5.0) 03/17/24 14:05
Physical Exam
-
Vital Signs:
Vital Signs
Temp Pulse Resp BP Pulse Ox
97.2 F 76 18 114/67 98
03/26/24 11:00 03/26/24 11:00 03/26/24 11:00 03/26/24 11:00 03/26/24 11:00
Cardiovascular:: Regular rate and rhythm
Respiratory:: Bilateral: Coarse
Lung Excursion:: Normal
Abdomen:: Nontender and Soft
Bowel Sounds:: Normal
Extremity Edema:: None: Bilateral:
[2024-03-26 15:00] VITALS: BP 133/63
[2024-03-26 19:25] VITALS: BP 129/86
[2024-03-26] MEDS: DESYREL 100 MG PO (21:20)
[2024-03-26] MEDS: ARICEPT 10 MG PO (22:29)
[2024-03-26 23:20] VITALS: BP 98/53
[2024-03-27] VITALS (7 sets, daily range): BP systolic 94–118; BP diastolic 47–74; PULSE 60; O2SAT 94; BMI 12.3
[2024-03-27] MEDS: ProAmatine 5 MG PO (00:06)
[2024-03-27] MEDS: SODIUM BICARBONATE 1150 MEQ IV (00:35)
[2024-03-27] MEDS: HEPARIN 5000 UNITS SC ×2 (09:01→17:05)
[2024-03-27] MEDS: PROTONIX 40 MG PO (09:02)
[2024-03-27] MEDS: NORVASC PO (09:02)
[2024-03-27] MEDS: ZOLOFT 50 MG PO (09:02)
[2024-03-27] MEDS: KCL 20 MEQ PO ×2 (09:02→22:01)
[2024-03-27] MEDS: NAMENDA 10 MG PO ×2 (09:03→22:02)
[2024-03-27] MEDS: SODIUM BICARBONATE 650 MG PO (09:03)
[2024-03-27] MEDS: COMPAZINE 10 MG IV ×2 (10:33→22:14)
[2024-03-27 10:52] LABS: Blood Urea Nitrogen 35 mg/dl (7-17); Calcium 8.3 mg/dl (8.4-10.2); Carbon Dioxide 36 mmol/L (22-30); Chloride 94 mmol/L (98-107); Estimated Creatinine Clearance 20 ml/min; Glucose 107 mg/dl (70-99); Sodium 137 mmol/L (135-145); eGFR 39.48
--- NOTE | 2024-03-27 11:14 | W.PN.NEPH.PH ---
Today's Communication / Plan
-
Discontinue sodium bicarb and IV fluid
Follow BMP
Assessment/Plan
-
Impression:
EFRA
Metabolic acidosis
Acute hypoxic respiratory failure
Concern for PNA vs CHF
Bilateral pleural effusions
Suspected acute HFpEF
Severe TR, concern for pulm HTN
Hypokalemia
Bradycardia
PVCs at times of pattern of bigeminy
dementia
HTN
GERD
Severe TR
Acute Gastritis
Plan:
Creatinine down to 1.4
Replete potassium
Follow BMP
replace potassium as needed
Oral bicarbonate discontinued due to rapid rise in bicarb level
No evidence of RTA
Subjectively nonoliguric although no urine output recorded
-
-
Date of Service: March 27, 2024
CC / HPI / ROS
-
Chief Complaint:
EFRA
History of Present Illness:
EFRA/creatinine down to 1.4
BP high but stable
Rapidly corrected metabolic acidosis, carbon dioxide 36
Potassium 30
Review of Systems:
Malaise
No oral intake
Labs
-
Labs:
WBC 11.8 10^3/uL (4.8-10.8) H 03/23/24 07:54
RBC 5.12 10^6/uL (4.20-5.40) 03/23/24 07:54
Hgb 14.7 g/dL (12.0-16.0) 03/23/24 07:54
Hct 46.8 % (37.0-47.0) 03/23/24 07:54
Plt Count 462 10^3/uL (130-400) H 03/23/24 07:54
Sodium 137 mmol/L (135-145) 03/27/24 09:45
Potassium 3.0 mmol/L (3.5-5.1) L 03/27/24 09:45
Chloride 94 mmol/L (98-107) L 03/27/24 09:45
Carbon Dioxide 36 mmol/L (22-30) H 03/27/24 09:45
BUN 35 mg/dl (7-17) H 03/27/24 09:45
Creatinine 1.4 mg/dL (0.6-1.0) H 03/27/24 09:45
eGFR 39.48 03/27/24 09:45
Glucose 107 mg/dl (70-99) H 03/27/24 09:45
Calcium 8.3 mg/dl (8.4-10.2) L 03/27/24 09:45
Rer-Y-Fhwwvkkhkwl Pept 5600 pg/ml 03/17/24 14:05
Albumin 3.6 g/dl (3.5-5.0) 03/17/24 14:05
Physical Exam
-
Vital Signs:
Vital Signs
Temp Pulse Resp BP Pulse Ox
98.0 F 72 20 105/51 98
03/27/24 07:30 03/27/24 09:02 03/27/24 07:30 03/27/24 09:02 03/27/24 07:30
Cardiovascular:: Regular rate and rhythm
Respiratory:: Bilateral: Coarse
Lung Excursion:: Normal
Abdomen:: Nontender and Soft
Bowel Sounds:: Normal
Extremity Edema:: None: Bilateral:
[2024-03-27] MEDS: KCL 270 MEQ IV (12:00)
--- NOTE | 2024-03-27 12:08 | CM ---
CM reviewed chart, patient positive Norovirus. Patient resides at [facility]. CM reviewed PT notes, recommending SNF if [facility] unable to accept patient back. CM placed call to [facility] to review with nurse- spoke with Admissions
who will have nurse call CM back. CM will continue to follow for all discharge planning needs.
Plan; [facility], awaiting return call from nurse at [facility]-need to review with [facility] to confirm they can accept patient back at current level.
Report: [phone]
[2024-03-27 12:25] LABS: Magnesium 1.8 mg/dl (1.6-2.3)
--- NOTE | 2024-03-27 13:36 | W.PN.HOSP.TC ---
Today's Communication/Plan
-
Stop bicarb drip
Stop oral bicarb
Labs in the morning
Assessment / Plan
Assessment / Plan
Gen-awake, alert, NAD
HEENT-NC, AT, anicteric, clear oral mm
Neck-supple
CV-reg, no M, +S1/S2
Lungs-clear B/L
Abd-soft, NT, ND
Ext-no edema
Musculoskeletal-no cyanosis, clubbing
Skin-warm and dry
Neuro-grossly non-focal
Psych-calm, cooperative, confused
EFRA -likely due to volume depletion due to GI losses from acute diarrhea as well as diuresis. Urine eosinophils negative.
Lasix on hold. Creatinine trending down. Nephrology following. Renal ultrasound without hydronephrosis but does show possible tiny nonobstructing right renal stone.
Metabolic acidosis overcorrected and now has metabolic alkalosis. Bicarb drip discontinued, oral sodium bicarbonate stopped. Recheck labs tomorrow.
Acute norovirus gastroenteritis -continue supportive care. Still with diarrhea. Loperamide as needed ordered. Discussed with nursing.
Acute hypoxic respiratory failure - likely acute HFpEF along with bilateral pleural effusions. BNP 5600.
-minimal fluid for any safe thora
-cxr still persistent with pleural effusions
-MRSA neg
Clinically doubt pneumonia. Antibiotics discontinued. Admission procalcitonin normal.
Bilateral pleural effusions -moderate on the left, small on the right noted on admission chest x-ray. Repeat chest x-ray from 03/19 shows moderate bilateral pleural effusions. Etiology of effusions is likely due to acute heart failure exacerbation.
Hypernatremia -resolved.
Hypokalemia -improving. Magnesium was normal yesterday.
Ventricular bigeminy
-At present normal sinus rhythm
-most likely 2/2 to hypokalemia
Severe tricuspid regurgitation
#Suspected PAH
-start lasix
-F/u outpt
Essential hypertension
-Norvasc continued with hold parameters
-continue hydralazine for SBP>170
Dementia, likely Alzheimer's type
-Aricept, memantine and sertraline continued
-Trazodone
GERD
-PPI continued
Anxiety disorder
DVT prophylaxis
-heparin subcu
DNR
Dispo -pending clinical improvement of renal failure and acute gastroenteritis. Plan is to return to [facility] memory care unit when medically stable.
Updated patient's POA Nick on the phone. All questions answered.
Anticipated Discharge: > 48 hours
Subjective/Interval History
-
Date of Service: March 27, 2024
Patient seen and examined. Looks anxious but no complaints.
Objective Data
-
Labs:
Laboratory Results
03/27/24
09:45
Sodium 137
Potassium 3.0 L
Chloride 94 L
Carbon Dioxide 36 H
BUN 35 H
Creatinine 1.4 H
Glucose 107 H
Calcium 8.3 L
Vital Signs:
Vital Signs
Temp Pulse Resp BP Pulse Ox
98.0 F 67 16 114/52 98
03/27/24 11:00 03/27/24 11:00 03/27/24 11:00 03/27/24 11:00 03/27/24 11:00
I&O
03/26/24 03/27/24 03/28/24
06:59 06:59 06:59
Intake Total 660 / 660 2400 / 2400
Balance 660 / 660 2400 / 2400
Review of Systems
-
Unable to obtain full review of systems at this time due to: Dementia
[2024-03-27] MEDS: NSS 1000 IV (17:03)
[2024-03-27] MEDS: ARICEPT 10 MG PO (22:02)
[2024-03-27] MEDS: DESYREL 100 MG PO (22:02)
[2024-03-28] VITALS (7 sets, daily range): BP systolic 110–139; BP diastolic 55–87; BMI 13.0
[2024-03-28] MEDS: HEPARIN 5000 UNITS SC ×3 (01:24→17:18)
[2024-03-28 08:33] LABS: Blood Urea Nitrogen 26 mg/dl (7-17); Calcium 8.6 mg/dl (8.4-10.2); Carbon Dioxide 29 mmol/L (22-30); Chloride 104 mmol/L (98-107); Estimated Creatinine Clearance 23 ml/min; Glucose 107 mg/dl (70-99); Potassium 3.3 mmol/L (3.5-5.1); Sodium 144 mmol/L (135-145); eGFR 43.15
[2024-03-28] MEDS: PROTONIX 40 MG PO (09:28)
[2024-03-28] MEDS: KCL 20 MEQ PO ×2 (09:28→12:53)
[2024-03-28] MEDS: ZOLOFT 50 MG PO (09:29)
[2024-03-28] MEDS: NORVASC 5 MG PO (09:29)
[2024-03-28] MEDS: NAMENDA 10 MG PO ×2 (09:29→21:20)
--- NOTE | 2024-03-28 11:22 | W.PN.HOSP.TC ---
Today's Communication/Plan
-
Increase potassium supplements
Assessment / Plan
Assessment / Plan
Gen-awake, alert, NAD
HEENT-NC, AT, anicteric, clear oral mm
Neck-supple
CV-reg, no M, +S1/S2
Lungs-clear B/L
Abd-soft, NT, ND
Ext-no edema
Musculoskeletal-no cyanosis, clubbing
Skin-warm and dry
Neuro-grossly non-focal
Psych-calm, cooperative, confused
EFRA -likely due to volume depletion due to GI losses from acute diarrhea as well as diuresis. Urine eosinophils negative.
Lasix on hold. Creatinine trending down. Nephrology following. Renal ultrasound without hydronephrosis but does show possible tiny nonobstructing right renal stone.
Bicarbonate coming down.
Acute norovirus gastroenteritis -continue supportive care. Still with diarrhea. Loperamide as needed ordered. Discussed with nursing.
Acute hypoxic respiratory failure - likely acute HFpEF along with bilateral pleural effusions. BNP 5600.
-minimal fluid for any safe thora
-cxr still persistent with pleural effusions
-MRSA neg
Clinically doubt pneumonia. Antibiotics discontinued. Admission procalcitonin normal.
Bilateral pleural effusions -moderate on the left, small on the right noted on admission chest x-ray. Repeat chest x-ray from 03/19 shows moderate bilateral pleural effusions. Etiology of effusions is likely due to acute heart failure exacerbation.
Hypernatremia -resolved.
Hypokalemia -improving. Magnesium was normal yesterday.
Ventricular bigeminy
-At present normal sinus rhythm
-most likely 2/2 to hypokalemia
Severe tricuspid regurgitation
#Suspected PAH
-start lasix
-F/u outpt
Essential hypertension
-Norvasc continued with hold parameters
-continue hydralazine for SBP>170
Dementia, likely Alzheimer's type
-Aricept, memantine and sertraline continued
-Trazodone
GERD
-PPI continued
Anxiety disorder
DVT prophylaxis
-heparin subcu
DNR
Dispo -pending clinical improvement of renal failure and acute gastroenteritis. Plan is to return to [facility] care unit when medically stable. Her very poor oral intake concerns me.
Updated patient's POA Nick on the phone yesterday. All questions answered.
Anticipated Discharge: > 48 hours
Subjective/Interval History
-
Date of Service: March 28, 2024
Patient seen and examined. No complaints.
Objective Data
-
Labs:
Laboratory Results
03/28/24
07:54
Sodium 144
Potassium 3.3 L
Chloride 104
Carbon Dioxide 29
BUN 26 H
Creatinine 1.3 H
Glucose 107 H
Calcium 8.6
Vital Signs:
Vital Signs
Temp Pulse Resp BP Pulse Ox
97.5 F 83 20 139/74 98
03/28/24 08:57 03/28/24 08:57 03/28/24 08:57 03/28/24 08:57 03/28/24 08:57
I&O
03/27/24 03/28/24 03/29/24
06:59 06:59 06:59
Intake Total 2400 / 2400 360 / 360
Balance 2400 / 2400 360 / 360
Review of Systems
-
History Source: Patient
All other systems: Reviewed and negative
--- NOTE | 2024-03-28 11:54 | W.PN.NEPH.PH ---
Today's Communication / Plan
-
Replete potassium
Follow-up BMP
Labs continue to improve
Assessment/Plan
-
Impression:
EFRA
Metabolic acidosis
Acute hypoxic respiratory failure
Concern for PNA vs CHF
Bilateral pleural effusions
Suspected acute HFpEF
Severe TR, concern for pulm HTN
Hypokalemia
Bradycardia
PVCs at times of pattern of bigeminy
dementia
HTN
GERD
Severe TR
Acute Gastritis
Plan:
Creatinine down to 1.3
Replete potassium
Follow BMP
replace potassium as needed
Oral bicarbonate discontinued due to rapid rise in bicarb level
No evidence of RTA
Subjectively nonoliguric although no urine output recorded
-
-
Date of Service: March 28, 2024
CC / HPI / ROS
-
Chief Complaint:
EFRA
History of Present Illness:
EFRA/creatinine down to 1.3
BP high but stable
Rapidly corrected metabolic acidosis, carbon dioxide 36
Potassium 3.3
Review of Systems:
Malaise
Short of breath
Labs
-
Labs:
WBC 11.8 10^3/uL (4.8-10.8) H 03/23/24 07:54
RBC 5.12 10^6/uL (4.20-5.40) 03/23/24 07:54
Hgb 14.7 g/dL (12.0-16.0) 03/23/24 07:54
Hct 46.8 % (37.0-47.0) 03/23/24 07:54
Plt Count 462 10^3/uL (130-400) H 03/23/24 07:54
Sodium 144 mmol/L (135-145) 03/28/24 07:54
Potassium 3.3 mmol/L (3.5-5.1) L 03/28/24 07:54
Chloride 104 mmol/L (98-107) 03/28/24 07:54
Carbon Dioxide 29 mmol/L (22-30) 03/28/24 07:54
BUN 26 mg/dl (7-17) H 03/28/24 07:54
Creatinine 1.3 mg/dL (0.6-1.0) H 03/28/24 07:54
eGFR 43.15 03/28/24 07:54
Glucose 107 mg/dl (70-99) H 03/28/24 07:54
Calcium 8.6 mg/dl (8.4-10.2) 03/28/24 07:54
Oiu-F-Tapdotkrdgr Pept 5600 pg/ml 03/17/24 14:05
Albumin 3.6 g/dl (3.5-5.0) 03/17/24 14:05
Physical Exam
-
Vital Signs:
Vital Signs
Temp Pulse Resp BP Pulse Ox
97.5 F 83 20 139/74 98
03/28/24 08:57 03/28/24 08:57 03/28/24 08:57 03/28/24 08:57 03/28/24 08:57
Cardiovascular:: Regular rate and rhythm
Respiratory:: Bilateral: Coarse
Lung Excursion:: Normal
Abdomen:: Nontender and Soft
Bowel Sounds:: Normal
Extremity Edema:: None: Bilateral:
[2024-03-28] MEDS: 0.45%NACL 1000 IV (12:48)
[2024-03-28 17:10] LABS: Glucose - Point of Care 100 mg/dl (70-99)
[2024-03-28] MEDS: KCL 40 MEQ PO (21:19)
[2024-03-28] MEDS: ARICEPT 10 MG PO (21:20)
[2024-03-28] MEDS: DESYREL 100 MG PO (21:20)
[2024-03-29] MEDS: HEPARIN 5000 UNITS SC ×2 (01:13→08:55)
[2024-03-29] MEDS: 0.45%NACL 1000 IV ×2 (02:31→21:00)
[2024-03-29 03:46] VITALS: BP 116/64
[2024-03-29 06:00] VITALS: BMI 12.1
[2024-03-29 07:05] LABS: Blood Urea Nitrogen 18 mg/dl (7-17); Calcium 8.4 mg/dl (8.4-10.2); Carbon Dioxide 25 mmol/L (22-30); Chloride 107 mmol/L (98-107); Estimated Creatinine Clearance 25 ml/min; Glucose 85 mg/dl (70-99); Potassium 3.5 mmol/L (3.5-5.1); Sodium 138 mmol/L (135-145); eGFR 52.73
[2024-03-29 07:20] VITALS: BP 120/61
[2024-03-29] MEDS: ZOLOFT 50 MG PO (08:55)
[2024-03-29] MEDS: PROTONIX 40 MG PO (08:55)
[2024-03-29] MEDS: KCL 40 MEQ PO (08:55)
[2024-03-29] MEDS: NAMENDA 10 MG PO ×2 (08:56→21:08)
[2024-03-29] MEDS: NORVASC PO (08:59)
--- NOTE | 2024-03-29 10:50 | W.PN.NEPH.PH ---
Today's Communication / Plan
-
Sign off
Assessment/Plan
-
Impression:
EFRA
Metabolic acidosis
Acute hypoxic respiratory failure
Concern for PNA vs CHF
Bilateral pleural effusions
Suspected acute HFpEF
Severe TR, concern for pulm HTN
Hypokalemia
Bradycardia
PVCs at times of pattern of bigeminy
dementia
HTN
GERD
Severe TR
Acute Gastritis
Plan:
Creatinine down to 1.1
Follow BMP
replace potassium as needed
Oral bicarbonate discontinued due to rapid rise in bicarb level
No evidence of RTA
Subjectively nonoliguric although no urine output recorded
We will sign off
-
-
Date of Service: March 29, 2024
CC / HPI / ROS
-
Chief Complaint:
EFRA
History of Present Illness:
EFRA/creatinine down to 1.1
BP high but stable
Rapidly corrected metabolic acidosis, carbon dioxide 36
Potassium 3.5
Review of Systems:
Malaise
Short of breath
Labs
-
Labs:
WBC 11.8 10^3/uL (4.8-10.8) H 03/23/24 07:54
RBC 5.12 10^6/uL (4.20-5.40) 03/23/24 07:54
Hgb 14.7 g/dL (12.0-16.0) 03/23/24 07:54
Hct 46.8 % (37.0-47.0) 03/23/24 07:54
Plt Count 462 10^3/uL (130-400) H 03/23/24 07:54
Sodium 138 mmol/L (135-145) 03/29/24 05:09
Potassium 3.5 mmol/L (3.5-5.1) 03/29/24 05:09
Chloride 107 mmol/L (98-107) 03/29/24 05:09
Carbon Dioxide 25 mmol/L (22-30) 03/29/24 05:09
BUN 18 mg/dl (7-17) H 03/29/24 05:09
Creatinine 1.1 mg/dL (0.6-1.0) H 03/29/24 05:09
eGFR 52.73 03/29/24 05:09
Glucose 85 mg/dl (70-99) 03/29/24 05:09
Calcium 8.4 mg/dl (8.4-10.2) 03/29/24 05:09
Erw-D-Durhrnkepwc Pept 5600 pg/ml 03/17/24 14:05
Albumin 3.6 g/dl (3.5-5.0) 03/17/24 14:05
Physical Exam
-
Vital Signs:
Vital Signs
Temp Pulse Resp BP Pulse Ox
97.5 F 76 16 120/61 97
03/29/24 07:20 03/29/24 07:20 03/29/24 07:20 03/29/24 07:20 03/29/24 07:20
Cardiovascular:: Regular rate and rhythm
Respiratory:: Bilateral: Coarse
Lung Excursion:: Normal
Abdomen:: Nontender and Soft
Bowel Sounds:: Normal
Extremity Edema:: None: Bilateral:
--- NOTE | 2024-03-29 11:19 | W.PN.HOSP.TC ---
Today's Communication/Plan
-
Hold Lasix, trend BMP
40 mEq KCl
Encourage oral intake
Assessment / Plan
Assessment / Plan
#EFRA
-likely due to volume depletion due to GI losses from acute diarrhea as well as diuresis. Urine eosinophils negative.
-Lasix on hold. Creatinine trending down. Nephrology following.
-Renal ultrasound without hydronephrosis but does show possible tiny nonobstructing right renal stone.
-Continue to hold Lasix for today, trend BMP
#Acute norovirus gastroenteritis
-continue supportive care.
-Diarrhea improving on loperamide
#Acute hypoxic respiratory failure
#Bilateral pleural effusion
-likely acute HFpEF along with bilateral pleural effusions. BNP 5600.
-minimal fluid for any safe thora
-cxr still persistent with pleural effusions
-MRSA neg, Clinically doubt pneumonia. Antibiotics discontinued. Admission procalcitonin normal
-Lasix held currently, on room air comfortably
#Hypokalemia
-Likely secondary to gastroenteritis and home diarrhea
-Improving, potassium 3.5 today
-Continue to hold Lasix, ordered 40 mill equivalents KCl
#Ventricular bigeminy
-At present normal sinus rhythm
-most likely 2/2 to hypokalemia
#Severe tricuspid regurgitation
#Suspected PAH
-Plan to resume Lasix when euvolemic
-F/u outpt
#Essential hypertension
-Norvasc continued with hold parameters
-continue hydralazine for SBP>170
#Dementia, likely Alzheimer's type
-Aricept, memantine and sertraline continued
-Trazodone
#GERD
-PPI continued
#Anxiety disorder
DVT prophylaxis: heparin subcu
Diet: Regular
Code Status: DNR
Dispo: Plan is to return to [facility] memory care unit when medically stable. Pending improved oral intake
Updated patient's POA Nick on the phone 03/27
Anticipated Discharge: Within 24 hours
Subjective/Interval History
-
Date of Service: March 29, 2024
Seen and examined at bedside. No acute events reported overnight. AFVSS this morning on room air
Renal function stable on a.m. labs.
ROS limited by dementia
Objective Data
-
Labs:
Laboratory Results
03/29/24
05:09
Sodium 138
Potassium 3.5
Chloride 107
Carbon Dioxide 25
BUN 18 H
Creatinine 1.1 H
Glucose 85
Calcium 8.4
Vital Signs:
Vital Signs
Temp Pulse Resp BP Pulse Ox
97.5 F 76 16 120/61 97
03/29/24 07:20 03/29/24 07:20 03/29/24 07:20 03/29/24 07:20 03/29/24 07:20
I&O
03/28/24 03/29/24 03/30/24
06:59 06:59 06:59
Intake Total 360 / 360 1320 / 1320
Balance 360 / 360 1320 / 1320
Review of Systems
-
Unable to obtain full review of systems at this time due to: Dementia
Physical Exam
-
General: No Apparent Distress, Comfortable, Appears Chronically Ill and Cachectic
HEENT: Normocephalic, Atraumatic, Moist Mucous Membranes and Anicteric
Respiratory: Clear to Auscultation and Non Labored Respirations
Cardiac: Regular Rhythm, S1/S2 and Murmur; Negative Rub or Gallop
GI: Soft, Nontender, Nondistended and Normal Bowel Sounds
Musculoskeletal: No Clubbing, No Cyanosis and No Edema
Skin: Warm and Dry; Negative Rash
Neuro: Awake, Alert and Nonfocal/Grossly Intact
Data Reviewed
-
Labs: Labs Reviewed by me and Discussed with Nurse
[2024-03-29 11:43] VITALS: BP 114/50
[2024-03-29] MEDS: KLOR-CON 40 MEQ PO (13:07)
[2024-03-29] MEDS: HEPARIN SC ×2 (15:07→23:51)
[2024-03-29 15:30] VITALS: BP 128/60
[2024-03-29 19:30] VITALS: BP 155/79
[2024-03-29] MEDS: DESYREL 100 MG PO (21:08)
[2024-03-29] MEDS: ARICEPT 10 MG PO (21:08)
[2024-03-29 23:30] VITALS: BP 115/58
[2024-03-30 03:02] VITALS: BP 114/56
--- NOTE | 2024-03-30 05:49 | PTCARENOTE ---
Pt remains impulsive, setting off bed alarm. AAOx1. Slow steady hunched gait. Tearful at times, emotional support provided. #22 LFA w/IVF infusing w/o complication. Bed alarm remains active for safety.
[2024-03-30 08:00] VITALS: BP 149/73
[2024-03-30] MEDS: KLOR-CON 40 MEQ PO (09:05)
[2024-03-30] MEDS: ZOLOFT 50 MG PO (09:05)
[2024-03-30] MEDS: NORVASC 5 MG PO (09:05)
[2024-03-30] MEDS: NAMENDA 10 MG PO (09:05)
[2024-03-30] MEDS: PROTONIX 40 MG PO (09:05)
[2024-03-30] MEDS: HEPARIN 5000 UNITS SC (09:06)
[2024-03-30 10:32] LABS: Blood Urea Nitrogen 11 mg/dl (7-17); Calcium 8.3 mg/dl (8.4-10.2); Carbon Dioxide 23 mmol/L (22-30); Chloride 106 mmol/L (98-107); Estimated Creatinine Clearance 27 ml/min; Glucose 82 mg/dl (70-99); Magnesium 1.4 mg/dl (1.6-2.3); Potassium 3.8 mmol/L (3.5-5.1); Sodium 138 mmol/L (135-145); eGFR 59.12
[2024-03-30 12:00] VITALS: BP 113/58
[2024-03-30] MEDS: MAGNESIUM SULFATE 100 IV (12:07)
--- NOTE | 2024-03-30 12:18 | CM ---
Addendum entered by Umu Torres 03/30/24 14:07:
CM placed call to [facility], spoke with patients nurse, Glo, confirmed ability to accept patient for discharge today. CM placed call to patients cousin, Nick, to provide update.
[facility]
Report: [phone]

Addendum entered by Umu Trores 03/30/24 12:57:
CM placed call to patients cousin/POA Nick, discussed patient stable for discharge, awaiting return call from [facility] to confirm ability to accept patient return. Nick reports he will provide transport for patient to facility. IMM verbally reviewed
with Nick, placed in chart. CM will update Nick once CM receives call from [facility].
Original Note:
CM reviewed chart, reviewed with Hospitalist, patient medically stable for discharge. CM viewed with PT, patient ambulating well. CM placed call to [facility], spoke with hospital receptionist, will have nurse call CM back. CM relayed patient is stable for
discharge to return to [facility]. CM will fax clinical updates, will await return call from nurse at [facility]. CM will continue to follow for all discharge planning needs.
[facility]
Report: [phone]

Plan: Return to [facility].
--- NOTE | 2024-03-30 12:43 | W.PN.HOSP.TC ---
Addendum entered and electronically signed by Brett Banuelos MD 03/30/24 16:50:
[id number]
Original Note:
Today's Communication/Plan
-
resume lasix, monitor bmp (Scr, K) and Mag closely
f/u pcp, cardiology outpatient
Assessment / Plan
Assessment / Plan
#EFRA
-likely due to volume depletion due to GI losses from acute diarrhea as well as diuresis. Urine eosinophils negative.
-Lasix on hold. Creatinine trending down. Nephrology following.
-Renal ultrasound without hydronephrosis but does show possible tiny nonobstructing right renal stone.
-Continue to hold Lasix for today, trend BMP
#Acute norovirus gastroenteritis
-continue supportive care.
-Diarrhea improving on loperamide
-improving
#Acute hypoxic respiratory failure
#Bilateral pleural effusion
-likely acute HFpEF along with bilateral pleural effusions. BNP 5600.
-minimal fluid for any safe thora
-cxr still persistent with pleural effusions
-MRSA neg, Clinically doubt pneumonia. Antibiotics discontinued. Admission procalcitonin normal
-on RA
-resume lasix 20mg daily outpt but needs close Scr monitoring
#Hypokalemia
#Hypomagnesemia
-Likely secondary to gastroenteritis and home diarrhea
-monitor and replete
-f/u mag, bmp in 3 days
#Ventricular bigeminy
-At present normal sinus rhythm
-most likely 2/2 to hypokalemia
#Severe tricuspid regurgitation
#Suspected PAH
-euvolemic
-restart lasix
-f/u outpatient
#Essential hypertension
-Norvasc continued with hold parameters
-continue hydralazine for SBP>170
#Dementia, likely Alzheimer's type
-Aricept, memantine and sertraline continued
-Trazodone
#GERD
-PPI continued
#Anxiety disorder
DVT prophylaxis: heparin subcu
Diet: Regular
Code Status: DNR
Dispo: DC today
More than 30 minutes spent in discharge including
Final examination of the patient
Summarizing hospital stay
Instructions for continuing care to all relevant caregivers
Preparation of discharge records, prescriptions, and referral forms
Total time spent (35 in minutes):
Anticipated Discharge: Today
Subjective/Interval History
-
Date of Service: March 30, 2024
no acute events; has minimal diarrhea albeit improved
Objective Data
-
Labs:
Laboratory Results
03/30/24
09:33
Sodium 138
Potassium 3.8
Chloride 106
Carbon Dioxide 23
BUN 11
Creatinine 1.0
Glucose 82
Calcium 8.3 L
Vital Signs:
Vital Signs
Temp Pulse Resp BP Pulse Ox
97.7 F 79 18 113/58 95
03/30/24 12:00 03/30/24 12:00 03/30/24 12:00 03/30/24 12:00 03/30/24 12:00
I&O
03/29/24 03/30/24 03/31/24
06:59 06:59 06:59
Intake Total 1320 / 1320 1320 / 1320
Balance 1320 / 1320 1320 / 1320
Review of Systems
-
History Source: Patient
All other systems: Not reviewed unless documented
Physical Exam
-
General: No Apparent Distress, Comfortable, Appears Chronically Ill and Cachectic
HEENT: Normocephalic, Atraumatic, Moist Mucous Membranes and Anicteric
Respiratory: Clear to Auscultation and Non Labored Respirations
Cardiac: Regular Rhythm, S1/S2 and Murmur; Negative Rub or Gallop
GI: Soft, Nontender, Nondistended and Normal Bowel Sounds
Musculoskeletal: No Clubbing, No Cyanosis and No Edema
Skin: Warm and Dry; Negative Rash
Neuro: Awake, Alert and Nonfocal/Grossly Intact
Data Reviewed
-
Diagnostic Radiology: Image personally visualized and interpreted and Report Reviewed by me
Ultrasound: Image personally visualized and interpreted
Labs: Labs Reviewed by me
--- NOTE | 2024-03-30 12:52 | W.DS.TRANS ---
DC Summary - Attendance Secretary
-
Discharge Instructions:
Discharge Diagnosis/Procedures
# Acute hypoxic respiratory failure likely to
acute HFpEF with severe TR
#EFRA
#Norovirus
Diet Restrict fluids to 48 oz,Low Fat,Low Cholesterol
,2 Gram Sodium
Activity As tolerated
Blood Work bmp in 3 days monitoring Scr
Specialty Instructions Weigh Daily
Instructions: *[facility]CA Heart Failure Instructions
Stand-Alone Forms:
Changes to Home Medications: Yes
Discharge Medications:
DC Medications w/original date entered in [facility]
amlodipine 5 mg tablet 5 mg PO DAILY Blood Pressure 03/17/24
donepezil 10 mg tablet 10 mg PO HS Neurological Condition 03/17/24
loperamide 2 mg tablet 4 mg PO Q6H PRN loose stool 03/17/24
memantine 10 mg tablet 10 mg PO BID Neurological Condition 03/17/24
omeprazole 40 mg capsule,delayed release 40 mg PO DAILY Gastrointestinal Issue 03/17/24
ondansetron HCl 4 mg tablet 4 mg PO Q6H PRN nausea 03/17/24
sertraline 50 mg tablet 50 mg PO DAILY Mental Health/Anxiety 03/17/24
trazodone 100 mg tablet 100 mg PO HS Mental Health/Anxiety 03/17/24
furosemide 20 mg tablet 20 mg PO DAILY #0 tabs 03/22/24
Home Medication Changes
furosemide 20 mg tablet 20 mg PO DAILY #0 tabs 03/22/24
Pending Results: No
[2024-03-30] MEDS: 0.45%NACL IV (13:40)
[2024-03-30] MEDS: HEPARIN SC (15:26)
[2024-03-30 16:00] VITALS: BP 133/67
== END 2024-03-30 17:22 | DRG 291 ==
LOC: 4 WEST ACU 18:09
PROVIDERS: Hospitalist; Internal Medicine; Nurse Practitioner Gerontology; Physician Assistant; Registered Nurse; ADMITTING PHYSICIAN Internal Medicine; CONSULT PHYSICIAN Internal Medicine Cardiovascular Disease; CONSULT PHYSICIAN Specialist; EMERGENCY PHYSICIAN Emergency Medicine; FAMILY PHYSICIAN Hospitalist
DX: I11.0 Hypertensive heart disease with heart failure (principal); E43 Unspecified severe protein-calorie malnutrition; I50.31 Acute diastolic (congestive) heart failure; J90 Pleural effusion, not elsewhere classified; F03.94 Unspecified dementia, unspecified severity, with anxiety; F03.93 Unspecified dementia, unspecified severity, with mood disturbance; N17.9 Acute kidney failure, unspecified; E87.20 Acidosis, unspecified; A08.11 Acute gastroenteropathy due to Norwalk agent; Z68.1 Body mass index [BMI] 19.9 or less, adult; Z11.52 Encounter for screening for COVID-19; Z66 Do not resuscitate; E87.6 Hypokalemia; Z87.891 Personal history of nicotine dependence; K21.9 Gastro-esophageal reflux disease without esophagitis; E83.42 Hypomagnesemia
CPT/HCPCS: 71046; 76604; 76770; 80048; 80053; 81003; 81015; 81099; 82570; 82947; 82962; 83615; 83735; 83880; 84132; 84145; 84155; 84300; 84484; 85025; 85027; 87040; 87324; 87449; 87502; 87641; 87798; 87811; 93005; 93306; 96374; 96375; 97116; 97163; 97530; 99291

== ENCOUNTER → 2024-04-22 10:12 | Outpatient (REF) | payer MEDICARE, SELFPAY ==
[2024-04-22 12:11] LABS: % Basophils 2.5 % (0-2); % Eosinophils 2.7 % (0-6); % Immature Granulocytes 0.4 % (0-0.5); % Lymphocytes 28.5 % (20.5-51.1); % Monocytes 15.3 % (1.7-9.3); % Neutrophils 50.6 % (42.2-75.2); Absolute Basophils 0.1 10^3/uL (0-0.2); Absolute Eosinophils 0.1 10^3/uL (0-0.7); Absolute Lymphocytes 1.4 10^3/uL (1.2-3.4); Absolute Monocytes 0.7 10^3/uL (0.1-0.6); Absolute Neutrophils 2.5 10^3/uL (1.4-6.5); Hematocrit 35.8 % (37.0-47.0); Hemoglobin 11.2 g/dL (12.0-16.0); Mean Corp Hgb Conc. 31.3 g/dL (33.0-37.0); Mean Corpuscular Hgb 28.7 pg (27.0-31.0); Mean Corpuscular Volume 91.8 fL (81.0-99.0); Mean Platelet Volume 10.3 fL (7.4-10.4); Nucleated Red Blood Cells % 0 %; Platelet Count 227 10^3/uL (130-400); Red Cell Dist. Width 15.4 % (11.5-14.5); White Blood Cell Count 4.9 10^3/uL (4.8-10.8)
[2024-04-22 12:30] LABS: Blood Urea Nitrogen 25 mg/dl (7-17); Calcium 9.2 mg/dl (8.4-10.2); Carbon Dioxide 34 mmol/L (22-30); Chloride 99 mmol/L (98-107); Glucose 90 mg/dl (70-99); Sodium 140 mmol/L (135-145); eGFR 52.73
== END ==
LOC: OLABSOL 10:12
PROVIDERS: ATTENDING PHYSICIAN Nurse Practitioner Adult Health
DX: D64.9 Anemia, unspecified (principal); R94.4 Abnormal results of kidney function studies; E61.2 Magnesium deficiency
CPT/HCPCS: 36415; 80048; 83735; 85025

== ENCOUNTER → 2024-05-15 10:42 | Outpatient (REF) | payer MEDICARE, SELFPAY ==
[2024-05-15 12:29] LABS: Blood Urea Nitrogen 22 mg/dl (7-17); Calcium 9.3 mg/dl (8.4-10.2); Carbon Dioxide 31 mmol/L (22-30); Chloride 100 mmol/L (98-107); Glucose 101 mg/dl (70-99); Potassium 3.2 mmol/L (3.5-5.1); Sodium 139 mmol/L (135-145)
== END ==
LOC: OLABSOL 10:42
PROVIDERS: ATTENDING PHYSICIAN Nurse Practitioner Adult Health
DX: R94.4 Abnormal results of kidney function studies (principal)
CPT/HCPCS: 36415; 80048

== ENCOUNTER → 2024-06-12 11:02 | Outpatient (REF) | payer MEDICARE, SELFPAY ==
[2024-06-12 11:41] LABS: Blood Urea Nitrogen 22 mg/dl (7-17); Calcium 9.2 mg/dl (8.4-10.2); Carbon Dioxide 25 mmol/L (22-30); Chloride 106 mmol/L (98-107); Glucose 111 mg/dl (70-99); Potassium 4.2 mmol/L (3.5-5.1); Sodium 139 mmol/L (135-145); eGFR 59.12
== END ==
LOC: OLABSOL 11:02
PROVIDERS: ATTENDING PHYSICIAN Nurse Practitioner Adult Health
DX: R94.4 Abnormal results of kidney function studies (principal)
CPT/HCPCS: 36415; 80048

== ENCOUNTER → 2024-07-01 10:24 | Outpatient (REF) | payer MEDICARE, SELFPAY ==
[2024-07-01 12:27] LABS: Blood Urea Nitrogen 26 mg/dl (7-17); Calcium 8.9 mg/dl (8.4-10.2); Carbon Dioxide 23 mmol/L (22-30); Chloride 104 mmol/L (98-107); Glucose 76 mg/dl (70-99); Potassium 4.3 mmol/L (3.5-5.1); Sodium 137 mmol/L (135-145); eGFR 58.75
== END ==
LOC: OLABSOL 10:24
PROVIDERS: ATTENDING PHYSICIAN Nurse Practitioner Adult Health
DX: R94.4 Abnormal results of kidney function studies (principal)
CPT/HCPCS: 36415; 80048

== ENCOUNTER → 2024-07-27 13:03 | Outpatient (REF) | payer MEDICARE, SELFPAY ==
[2024-07-27 14:01] LABS: Urine Albumin 2+ (Neg - Trace); Urine Bilirubin Negative (Negative); Urine Character Cloudy (Clear); Urine Color Yellow; Urine Glucose Negative (Negative); Urine Ketone Negative (Negative); Urine Leukocyte 3+ (Negative); Urine Nitrite Negative (Negative); Urine Occult Blood 4+ (Negative); Urine Specific Gravity 1.015 (<1.030); Urine Urobilinogen 1+ (Neg - 1+)
[2024-07-27 14:54] LABS: Urine Bacteria Many (Negative); Urine Squamous Cell >30 /LPF (Few)
[2024-07-27 14:55] LABS: Urine Calcium Oxalate Crystals Seen; Urine Red Blood Cell 0-2 /HPF (0-2); Urine White Cell 50-60 /HPF (0-5)
[2024-07-27 15:07] LABS: Urine Amorphous Seen
== END ==
LOC: OLABSOL 13:03
PROVIDERS: ATTENDING PHYSICIAN Nurse Practitioner Adult Health
DX: N39.0 Urinary tract infection, site not specified (principal)
CPT/HCPCS: 81003; 81015

== ENCOUNTER → 2024-08-21 09:29 | Outpatient (REF) | payer MEDICARE, SELFPAY ==
[2024-08-21 10:53] LABS: Blood Urea Nitrogen 17 mg/dl (7-17); Carbon Dioxide 26 mmol/L (22-30); Chloride 107 mmol/L (98-107); Glucose 107 mg/dl (70-99); Sodium 141 mmol/L (135-145); eGFR 58.75
== END ==
LOC: OLABSOL 09:29
PROVIDERS: ATTENDING PHYSICIAN Nurse Practitioner Adult Health
DX: R94.4 Abnormal results of kidney function studies (principal)
CPT/HCPCS: 36415; 80048

== ENCOUNTER → 2024-09-18 10:19 | Outpatient (REF) | payer MEDICARE, SELFPAY ==
[2024-09-18 11:58] LABS: Blood Urea Nitrogen 18 mg/dl (7-17); Calcium 9.1 mg/dl (8.4-10.2); Carbon Dioxide 22 mmol/L (22-30); Chloride 111 mmol/L (98-107); Glucose 91 mg/dl (70-99); Potassium 4.3 mmol/L (3.5-5.1); Sodium 142 mmol/L (135-145); eGFR 58.75
== END ==
LOC: OLABSOL 10:19
PROVIDERS: ATTENDING PHYSICIAN Nurse Practitioner Adult Health
DX: R94.4 Abnormal results of kidney function studies (principal)
CPT/HCPCS: 36415; 80048

== ENCOUNTER → 2024-10-21 12:19 | Outpatient (REF) | payer MEDICARE, SELFPAY ==
[2024-10-21 13:07] LABS: Blood Urea Nitrogen 17 mg/dl (7-17); Calcium 8.9 mg/dl (8.4-10.2); Carbon Dioxide 31 mmol/L (22-30); Chloride 105 mmol/L (98-107); Glucose 93 mg/dl (70-99); Potassium 3.3 mmol/L (3.5-5.1); Sodium 142 mmol/L (135-145); eGFR > 60.00
== END ==
LOC: OLABSOL 12:19
PROVIDERS: ATTENDING PHYSICIAN Nurse Practitioner Adult Health
DX: R94.4 Abnormal results of kidney function studies (principal)
CPT/HCPCS: 36415; 80048

== ENCOUNTER → 2024-11-02 11:46 | Outpatient (REF) | payer MEDICARE, OTHER, SELFPAY ==
[2024-11-02 13:34] LABS: Blood Urea Nitrogen 19 mg/dl (7-17); Calcium 9.1 mg/dl (8.4-10.2); Carbon Dioxide 24 mmol/L (22-30); Chloride 109 mmol/L (98-107); Glucose 87 mg/dl (70-99); Potassium 4.7 mmol/L (3.5-5.1); Sodium 139 mmol/L (135-145); eGFR > 60.00
== END ==
LOC: OLABSOL 11:46
PROVIDERS: ATTENDING PHYSICIAN Nurse Practitioner Adult Health
DX: R94.4 Abnormal results of kidney function studies (principal)
CPT/HCPCS: 36415; 80048

== ENCOUNTER → 2024-11-06 10:34 | Outpatient (REF) | payer MEDICARE, SELFPAY ==
[2024-11-06 11:05] LABS: Blood Urea Nitrogen 25 mg/dl (7-17); Calcium 8.9 mg/dl (8.4-10.2); Carbon Dioxide 27 mmol/L (22-30); Chloride 106 mmol/L (98-107); Glucose 93 mg/dl (70-99); Potassium 4.4 mmol/L (3.5-5.1); Sodium 141 mmol/L (135-145); eGFR 52.40
== END ==
LOC: OLABSOL 10:34
PROVIDERS: ATTENDING PHYSICIAN Nurse Practitioner Adult Health
DX: R94.4 Abnormal results of kidney function studies (principal)
CPT/HCPCS: 36415; 80048

== ENCOUNTER → 2024-12-09 11:05 | Outpatient (REF) | payer MEDICARE, SELFPAY ==
[2024-12-09 11:44] LABS: Blood Urea Nitrogen 19 mg/dl (7-17); Calcium 9.0 mg/dl (8.4-10.2); Carbon Dioxide 26 mmol/L (22-30); Chloride 107 mmol/L (98-107); Glucose 104 mg/dl (70-99); Potassium 4.0 mmol/L (3.5-5.1); Sodium 139 mmol/L (135-145); eGFR 52.40
== END ==
LOC: OLABSOL 11:05
PROVIDERS: ATTENDING PHYSICIAN Nurse Practitioner Adult Health
DX: E88.9 Metabolic disorder, unspecified (principal); R79.89 Other specified abnormal findings of blood chemistry
CPT/HCPCS: 36415; 80048

== ENCOUNTER → 2025-01-04 17:56 | Outpatient (REF) | payer MEDICARE, SELFPAY ==
[2025-01-04 18:46] LABS: Urine Character Clear (Clear)
== END ==
LOC: OLABSOL 17:56
PROVIDERS: ATTENDING PHYSICIAN Nurse Practitioner Adult Health
DX: N39.0 Urinary tract infection, site not specified (principal)
CPT/HCPCS: 81003; 87086

== ENCOUNTER → 2025-01-06 09:37 | Outpatient (REF) | payer MEDICARE, SELFPAY ==
[2025-01-06 10:44] LABS: Blood Urea Nitrogen 23 mg/dl (7-17); Calcium 9.1 mg/dl (8.4-10.2); Carbon Dioxide 26 mmol/L (22-30); Chloride 106 mmol/L (98-107); Glucose 83 mg/dl (70-99); Potassium 4.4 mmol/L (3.5-5.1); Sodium 141 mmol/L (135-145); eGFR 47.21
== END ==
LOC: OLABSOL 09:37
PROVIDERS: ATTENDING PHYSICIAN Nurse Practitioner Adult Health
DX: R79.9 Abnormal finding of blood chemistry, unspecified (principal)
CPT/HCPCS: 36415; 80048

== ENCOUNTER → 2025-02-26 10:02 | Outpatient (REF) | payer MEDICARE, SELFPAY ==
[2025-02-26 11:47] LABS: Blood Urea Nitrogen 21 mg/dl (7-17); Calcium 8.7 mg/dl (8.4-10.2); Carbon Dioxide 25 mmol/L (22-30); Chloride 111 mmol/L (98-107); Glucose 95 mg/dl (70-99); Potassium 4.0 mmol/L (3.5-5.1); Sodium 140 mmol/L (135-145); eGFR 52.40
== END ==
LOC: OLABSOL 10:02
PROVIDERS: ATTENDING PHYSICIAN Nurse Practitioner Adult Health
DX: R79.89 Other specified abnormal findings of blood chemistry (principal)
CPT/HCPCS: 36415; 80048

== ENCOUNTER 2025-03-29 02:29 | Inpatient (IN) | payer MEDICARE, OTHER, SELFPAY ==
[2025-03-28 21:54] VITALS: BP 160/84
[2025-03-28 21:56] VITALS: BP 160/84
[2025-03-28 22:03] VITALS: BMI 17.8
[2025-03-28] MEDS: TIGAN 200 MG IM (22:18)
[2025-03-28 22:29] LABS: Hematocrit 40.2 % (37.0-47.0); Hemoglobin 12.8 g/dL (12.0-16.0); Mean Corp Hgb Conc. 31.8 g/dL (33.0-37.0); Mean Corpuscular Volume 89.3 fL (81.0-99.0); Nucleated Red Blood Cells % 0 %; Platelet Count 254 10^3/uL (130-400); Red Cell Dist. Width 16.2 % (11.5-14.5)
--- NOTE | 2025-03-28 22:36 | ED.GENMED ---
History of Present Illness
General
Chief Complaint: Flank Pain
Time Seen by Provider: 03/28/25 22:36
History of Present Illness
History of Present Illness:
FOCUSED PAST MEDICAL HISTORY
- Dementia, high blood pressure
REVIEW OF OLD RECORDS
- I reviewed records, the patient was admitted with acute hypokalemia March 2024 as well as acute hypoxic respiratory failure likely secondary to HFpEF and EFRA
Note:
CHIEF COMPLAINT(S)
Abdominal pain and nausea.
HISTORY OF PRESENT ILLNESS
The patient, a 74-year-old female, presents with complaints of pain in the lower right abdomen. She describes the pain as uncomfortable and has been frequently grabbing the right side of her torso. During the evaluation, she reported feeling
nauseated and expressed a sensation of impending vomiting. The onset of symptoms is not clearly defined due to the patients history of dementia, which limits her ability to provide detailed information. She appears to be in discomfort during the
examination.
ADDITIONAL HISTORY OBTAINED FROM SOURCES OTHER THAN THE PATIENT
The patient has dementia, which affects her memory and limits her ability to provide complete history.
PHYSICAL EXAM
General: Appears uncomfortable. Holding emesis bag
Skin: Warm, dry.
Head: Normocephalic, atraumatic.
Neck: Supple, trachea midline.
Eye, Ear, nose, mouth, and throat: Oral mucosa moist.
Cardiovascular: Normal peripheral perfusion, no edema.
Respiratory: Respirations are non-labored.
Gastrointestinal: Some vague discomfort to palpation in the right side of the torso including lower chest and upper abdomen
Back: Decreased active range of motion due to pain
Musculoskeletal: Normal ROM, normal strength.
Neurological: Alert and oriented to person, place, time, and situation.
Psychiatric: Limited history due to dementia
PROBLEM LIST
Acute:
- Abdominal pain
- Nausea
Chronic:
- Dementia
PLAN
- Administer pain relief medications.
- Order diagnostic tests to evaluate the cause of abdominal pain.
DIFFERENTIAL DIAGNOSIS
The Differential Diagnosis includes, in no particular order and is not limited to:
- Appendicitis
- Cholecystitis
- Diverticulitis
- Gastroenteritis
- Pancreatitis
- Urinary Tract Infection
- Ovarian cyst
- Inflammatory Bowel Disease
- Mesenteric ischemia
- Constipation
SUMMARY OF ENCOUNTER
The patient presented to the emergency department with abdominal discomfort and was found to have a right-sided pneumothorax predominantly in the apical region on the CT scan. Pain management was provided with hydromorphone, after which the patient
became somewhat hypoxic. A mild leukocytosis was noted, but there were no clear signs of infection on urinalysis. Hematuria was observed, and a 6-millimeter stone was detected in the distal ureter on the CT scan. Cardiothoracic surgery was
consulted, and it was agreed to hold off on chest tube placement for now. Interventional radiology was also consulted and suggested that a pigtail catheter could be placed later in the morning, indicating that emergency intervention was not
immediately required.
MANAGEMENT OF THE PATIENTS CARE WAS DISCUSSED WITH
Cardiothoracic surgery and interventional radiology were consulted to discuss the pneumothorax management.
PLAN
Monitor the pneumothorax with possible later intervention using a pigtail catheter by interventional radiology. Continue to manage pain and monitor for any changes in the patients respiratory status. Re-evaluate need for further urological
consultation due to unreturned call.
INDEPENDENT REVIEW OF LABS AND INTERPRETATION OF TESTS
My independent review indicates leukocytosis and hematuria without signs of infection.
MEDICATION RECONCILIATION
Hydromorphone was administered for pain relief.
MEDICAL DECISION MAKING
-Complexity of Data Reviewed: Chronic conditions affecting care include a CT result showing a pneumothorax and a ureteric stone. Differential diagnosis includes possible complications from pneumothorax and considerations of pain management.
-Data:
Category 2
Clinical information obtained from the independent review of CT scan results showing a right-sided pneumothorax and ureteric stone.
Category 3
Discussion of management with cardiothoracic surgery and interventional radiology regarding the pneumothorax.
-Risk:
Consideration of Admission/Observation: Escalation of care including admission/observation was considered given the complexity and risk of the patients presenting complaint and findings. However, emergency intervention was deferred, and close
follow-up with re-evaluation was planned.
DIAGNOSIS
- Pneumothorax, right side, predominantly apical (ICD-10: J93.83)
- Ureteric stone, distal (ICD-10: N20.1)
RADIOLOGY
- CT imaging obtained and I reviewed the imaging
EKG
- Sinus 62, normal axis, nonspecific ST abnormality, QTc 511 ms
LABS
- White count 12.8
- Blood noted on urinalysis
- Lactic normal
UPDATE
- Gave Reglan instead of Zofran as the patient has an elevated QTc
- Mild leukocytosis noted. Mild renal insufficiency also noted but is similar to prior, saline was given
- Pneumothorax noted discussed with pulmonary and IR and internal medicine�we all agreed to hold off on chest tube placement at this time
- Did not hear back from urologist regarding CT findings which include 6 mm distal stone along with concern for calyceal rupture or leak
Phy Exam
Physical Exam
Physical Exam:
See HPI
Course
Orders/Labs/Results
Orders:
Orders
03/28/25 22:05
Ondansetron Injectable [Zofran] 4 mg .ROUTE .STK-MED ONE
03/28/25 22:06
Ondansetron Injectable [Zofran] 4 mg IV NOW STA
03/28/25 22:08
Electrocardiogram (*1) Urgent
Reason for Study: Hypertension, Benign
EKG- Treatment ONCE
03/28/25 22:15
Trimethobenzamide [Tigan] 200 mg IM NOW STA
03/28/25 22:23
Complete Blood Count/With Diff Urgent
Comprehensive Metabolic Panel Urgent
03/28/25 22:45
Chest/Abd/Pelvis w Contrast CT [CT Chest/abd/pel W Iv Cont] Urgent
Comment:
Reason For Exam: severe R chest/flank/abd pain, vomiting
0.9% Sodium Chloride 500 ml [Nss] 500 ml IV BOLUS
Diphenhydramine [Benadryl] 25 mg IV NOW STA
HYDROmorphone [Dilaudid] 0.5 mg IV NOW STA
Metoclopramide [Reglan] 10 mg IV NOW STA
03/28/25 22:49
Straight cath- Treatment ONCE
03/28/25 22:59
Troponin I Urgent
Urinalysis Reflex To Culture Urgent
Date Specimen was Collected: 03/28/25
Time Specimen was Collected: 22:57
Urine Microscopic Reflex Cult Urgent
Urine Culture Urgent
ADIN Source: U
Specimen Description:
Date Specimen was Collected: 03/28/25
Time Specimen was Collected: 22:57
03/29/25 00:41
CR Chest Portable - 1 View Urgent
Comment:
Reason For Exam: eval R PTX
Reason Study Needs to be Portable: Patient Unstable
Abnormal Lab Results
03/28/25 03/28/25
22:23 22:59
WBC 12.8 H 10^3/uL
(4.8-10.8)
MCHC 31.8 L g/dL
(33.0-37.0)
RDW 16.2 H %
(11.5-14.5)
Abs Immat Gran (auto) 0.1 H 10^3/uL
(0-0.05)
Absolute Neuts (auto) 9.9 H 10^3/uL
(1.4-6.5)
Absolute Monos (auto) 1.1 H 10^3/uL
(0.1-0.6)
Neutrophils % 77.2 H %
(42.2-75.2)
Lymphocytes % 11.9 L %
(20.5-51.1)
BUN 21 H mg/dl
(7-17)
Creatinine 1.2 H mg/dL
(0.6-1.0)
Glucose 129 H mg/dl
(70-99)
Urine Ketones 1+ A
(Negative)
Ur Occult Blood Reflex 4+ A
(Negative)
Leukocyte Esterase Rfl 2+ A
(Negative)
Urine RBC 50-60 A /HPF
(0-2)
Urine Bacteria (Reflex) Moderate A
(Negative)
Urine Albumin (Reflex) 1+ A
(Neg - Trace)
03/28/25 22:23
03/28/25 22:23
Vital Signs
Initial and Last Documented VS:
Initial Vital Signs
Temp Pulse Resp BP Pulse Ox
36.1 C 69 18 160/84 96
03/28/25 21:54 03/28/25 21:54 03/28/25 21:54 03/28/25 21:54 03/28/25 21:54
Last Documented Vital Signs
Temp Pulse Resp BP Pulse Ox
36.1 C 78 13 143/70 98
03/28/25 21:54 03/29/25 01:45 03/29/25 01:45 03/29/25 00:00 03/29/25 01:45
*Pulse Oximetry
SaO2: 96
Oxygen Mode of Delivery: Room air
Patient hypoxic: no
*Critical Care Note
Total Time (30-74mins, 75-104mins- exclusive of procedures): Not Applicable
ED Attending Note
-
Portions of this chart may have been created with voice recognition software.� Occasional wrong word or��sound alike� substitutions may have occurred due to the inherent limitations of voice recognition software.
Discharge Plan
Departure
Patient Disposition: Admit
Date of Disposition: 03/29/25
Time of Disposition: 00:46
Presentation/result/management discussed w/ accepting MD/DO: Hospitalist
Patient with high blood pressure during this ER visit?: Yes
Discharge Problem:
Calculus of distal right ureter
Prescriptions:
No Action
donepezil 10 mg Tablet
10 mg PO HS
ondansetron HCl 4 mg Tablet
4 mg PO Q6H PRN (Reason: nausea)
loperamide 2 mg Tablet
4 mg PO Q6H PRN (Reason: loose stool)
amlodipine 5 mg Tablet
5 mg PO DAILY
omeprazole 40 mg Capsule,Delayed Release(Dr/Ec)
40 mg PO DAILY
trazodone 100 mg Tablet
100 mg PO HS
sertraline 50 mg Tablet
50 mg PO DAILY
memantine 10 mg Tablet
10 mg PO BID
furosemide 20 mg Tablet
20 mg PO DAILY Qty: 0 0RF
lorazepam 0.5 mg Tablet
0.25 mg PO DAILY PRN (Reason: anti-diarrheal)
Rx Instructions:
1/2 tablet (0.25 mg) by mouth daily
potassium chloride 20 mEq Tablet Extended Release
20 meq PO DAILY
mirtazapine 15 mg Tablet
15 mg PO DAILY@1800
Referrals:
BARBRA BAZAN NP [Family Provider, Family Practice]
Interventions
Interventions:
*Risk Screen - Suicide Last Done: 03/28/25 21:58
*General Assessment Last Done: 03/28/25 21:58
*Neglect/Abuse Screening Last Done: 03/28/25 21:58
*ED COVID-19 Vaccine History Last Done: 03/28/25 21:58
*ED Influenza Vaccine History Last Done: 03/28/25 21:58
[facility] Fall Risk Assessment Tool Last Done: 03/28/25 22:03
FI-Rvazhz-Btakylovzb Assessment Last Done: 03/28/25 22:01
ED-Female Genitourinary Assessment Last Done: 03/28/25 22:01
Discharge Date and Time
Print Language: KYRGYZ
[2025-03-28 22:43] LABS: ALT (SGPT) 17 U/L (0-35); AST (SGOT) 30 U/L (14-36); Albumin 4.3 g/dl (3.5-5.0); Alkaline Phosphatase 110 U/L (38-126); Blood Urea Nitrogen 21 mg/dl (7-17); Calcium 9.1 mg/dl (8.4-10.2); Carbon Dioxide 24 mmol/L (22-30); Chloride 104 mmol/L (98-107); Estimated Creatinine Clearance 28 ml/min; Glucose 129 mg/dl (70-99); Potassium 4.2 mmol/L (3.5-5.1); Sodium 137 mmol/L (135-145); Total Protein 8.1 g/dl (6.3-8.2); eGFR 47.21
[2025-03-28] MEDS: REGLAN 10 MG IV (23:00)
[2025-03-28] MEDS: BENADRYL 25 MG IV (23:02)
[2025-03-28] MEDS: DILAUDID 0.5 MG IV (23:02)
[2025-03-28] MEDS: NSS 500 IV (23:03)
[2025-03-28 23:26] LABS: Urine Character Clear (Clear)
[2025-03-28 23:37] LABS: Urine Squamous Cell 16-20 /LPF (Few)
[2025-03-28 23:40] LABS: Urine Red Blood Cell 50-60 /HPF (0-2)
[2025-03-28 23:45] VITALS: BP 169/82
[2025-03-28 23:52] LABS: Troponin I < 0.012 ng/ml
[2025-03-29] VITALS (17 sets, daily range): BP systolic 108–146; BP diastolic 56–99; BMI 19.1
--- NOTE | 2025-03-29 02:21 | HPS.HSE ---
Family Physician
-
Family Physician: BARBRA BAZAN NP
Chief Complaint
-
R sided pain
History of Present Illness
Patient is a 74y F with PMH significant for senile dementia and hypertension who presents to ED from [place] for evaluation of right-sided pain. History obtained from ED staff and POA via phone. Patient reportedly noted to have / complain of
pain this afternoon / evening - indicating her R side as location of her pain. Patient was sent to the ED for further evaluation and treatment. Patient was quite uncomfortable upon arrival - but is resting comfortably at the time of my exam /
following adminstration of pain medication. Additional history from patient directly is markedly impaired due to baseline dementia. She reported nausea to ED staff earlier. No noted emesis.
No reported recent fall, injury or trauma from nursing / memory care facility.
POA via phone notes that patient has extensive prior h/o kidney stones. She has required cysto / lithotripsy in the past.
Medical History
Past Medical History
Past Medical History: Reports Other
Additional Past Medical History:
Dementia
Hypertension
HFpEF / Severe Tricuspid Regurgitation
Nephrolithiasis
Anxiety / Depression
Past Surgical History: Reports Other
Additional Past Surgical History:
Cysto / Lithotripsies
Social History
Tobacco: Former Smoker
Alcohol: None
Drug: None
Living: Jail
Family History
Family History: Not pertinent
Allergies / Home Medications
Allergies reflects when Allergies were last updated in [facility].
Home Medications with original date entered in [facility]
Allergy/Medication List:
Allergies
Allergy/AdvReac Type Severity Reaction Status Date / Time
No Known Allergies Allergy Unverified 03/17/24 14:57
Home Medications
amlodipine 5 mg tablet 5 mg PO DAILY Blood Pressure 03/17/24
donepezil 10 mg tablet 10 mg PO HS Neurological Condition 03/17/24
loperamide 2 mg tablet 4 mg PO Q6H PRN loose stool 03/17/24
memantine 10 mg tablet 10 mg PO BID Neurological Condition 03/17/24
omeprazole 40 mg capsule,delayed release 40 mg PO DAILY Gastrointestinal Issue 03/17/24
ondansetron HCl 4 mg tablet 4 mg PO Q6H PRN nausea 03/17/24
sertraline 50 mg tablet 50 mg PO DAILY Mental Health/Anxiety 03/17/24
trazodone 100 mg tablet 100 mg PO HS Mental Health/Anxiety 03/17/24
furosemide 20 mg tablet 20 mg PO DAILY #0 tabs 03/22/24
lorazepam 0.5 mg tablet 0.25 mg PO DAILY PRN anti-diarrheal 03/28/25
potassium chloride 20 mEq tablet,extended release 20 meq PO DAILY hypokalemia 03/28/25
mirtazapine 15 mg tablet 15 mg PO DAILY@1800 03/29/25
Review of Systems
-
Unable to obtain full review of systems at this time due to: Dementia
Physical Exam
Vital Signs
Vital Signs
Temp Pulse Resp BP Pulse Ox
97 F 78 13 143/70 98
03/28/25 21:54 03/29/25 01:45 03/29/25 01:45 03/29/25 00:00 03/29/25 01:45
Physical Exam
General: Other (74y F in no apparent distress at present. Physical positioning with some guarding of entire side.)
HEENT: Moist mucous membranes and Other (Neck supple.)
Respiratory: Other (Breath sounds are present bilaterally. No noted wheezing or rhonchi.)
Cardiac: S1/S2 and Regular Rhythm; No Murmur
GI: Soft, Non Distended, Normal Bowel Sounds and Other (Apparent R sided tenderness / guarding. Bowel sounds are present.)
Genito-urinary: Costovertebral angle tend
Musculoskeletal: No Clubbing, No Cyanosis and No Edema
Neuro: Awake and Alert; No Oriented
Laboratory Results
-
03/28/25 22:23
03/28/25 22:23
Laboratory Results
Total Bilirubin 0.3 mg/dl (0.2-1.3) 03/28/25 22:23
AST 30 U/L (14-36) 03/28/25 22:23
ALT 17 U/L (0-35) 03/28/25 22:23
Alkaline Phosphatase 110 U/L (38-126) 03/28/25 22:23
Troponin I < 0.012 ng/ml 03/28/25 22:59
Impression/Plan
-
A/P: Patient is a 74y F with PMH significant for dementia, HTN and nephrolithiasis who presents to ED for evaluation of right-sided pain.
Right Distal Ureterolithiasis
Right Sided Hydronephrosis +/- Calyceal Rupture secondary to the above
- Admit for further evaluation and treatment.
- NPO, pain control / supportive measures.
- Begin tamsulosin. Avoid excessive IVFs for now.
- Urology consulted for additional recommendations and likely cysto / stent.
- Empiric IV abx for now pending stone removal.
- Follow for any new / worsening symptoms, development of fevers, etc.
Right Pneumothorax
Severe Emphysema
- CT done in the ED shows < 25% anterior pneumothorax on the R.
- Severe emphysema, cystic changes at R apex. Bilateral midlung mucus plugging. CECIL nodule (1.1cm).
- Initial mild hypoxemia improved with supplemental O2. No cough, fever, etc.
- Follow clinical exam and serial CXRs.
- Pulmonary consulted for additional recommendations.
- ? IR eval for pigtail catheter placement if necessary - but may resolve without intervention.
- No formal dx of COPD noted and on no chronic inhalers, etc.
Benign Hypertension
- Continue home amlodipine with holding parameters.
Chronic HFpEF
Severe TR
- Does not appear volume overloaded at present.
- Hold Lasix acutely. Follow I/Os, daily weights, etc.
Senile Dementia with Behavioral Disturbance
- Stable. Not anxious / agitated at present.
- Hold Aricept for now with noted QT prolongation on EKG.
- Continue other psychotropic medications.
- Follow for changes in mood.
DVT Prophylaxis: SCDs
Code Status: DNR confirmed with POA via phone.
[2025-03-29] MEDS: STERILE WATER FOR INJECTION 10 ML IV (05:30)
[2025-03-29] MEDS: ROCEPHIN 1000 MG IV (05:31)
[2025-03-29 07:07] LABS: Hematocrit 36.9 % (37.0-47.0); Hemoglobin 11.8 g/dL (12.0-16.0); Mean Corp Hgb Conc. 32.0 g/dL (33.0-37.0); Mean Corpuscular Volume 89.6 fL (81.0-99.0); Platelet Count 233 10^3/uL (130-400); Red Cell Dist. Width 16.2 % (11.5-14.5)
[2025-03-29 07:22] LABS: Blood Urea Nitrogen 20 mg/dl (7-17); Calcium 8.5 mg/dl (8.4-10.2); Carbon Dioxide 24 mmol/L (22-30); Chloride 106 mmol/L (98-107); Estimated Creatinine Clearance 24 ml/min; Glucose 97 mg/dl (70-99); Potassium 4.5 mmol/L (3.5-5.1); Sodium 138 mmol/L (135-145); eGFR 39.23
--- NOTE | 2025-03-29 08:09 | PHANOTE ---
med rec note- called [facility] for missing paperwork to faxed over to dher
--- NOTE | 2025-03-29 09:14 | CON.PUL ---
Consultation
Consultation Request
Date/Time Consultation Requested: 03/29/25
Date/Time Consultation Performed: 03/29/25
Performing Provider: Jonathon
Reason for Consultation: Ptx
Medical History
-
History of Present Illness:
Patient is a 74-year-old female with previous history of dementia, hypertension presenting to ER from [place] for evaluation of right sided chest pain. She was sent to [facility] ER for evaluation, chest x-ray demonstrating small
pneumothorax. She has history of extensive kidney stones with CT imaging demonstrating right distal ureteral lithiasis with right sided hydronephrosis.
Denies prior known history of lung disease, does not see [employer] as outpatient.
History is limited due to history of dementia as well.
Allergies / Home Medications
Allergies
Allergy/AdvReac Type Severity Reaction Status Date / Time
No Known Allergies Allergy Unverified 03/17/24 14:57
Home Medications
�Medication �Instructions �Recorded �Confirmed �Last Taken �Type
amlodipine 5 mg tablet 5 mg PO DAILY Blood Pressure 03/17/24 03/28/25 Unknown History
donepezil 10 mg tablet 10 mg PO HS Neurological Condition 03/17/24 03/28/25 Unknown History
loperamide 2 mg tablet 4 mg PO Q6H PRN loose stool 03/17/24 03/28/25 Unknown History
memantine 10 mg tablet 10 mg PO BID Neurological Condition 03/17/24 03/28/25 Unknown History
omeprazole 40 mg capsule,delayed 40 mg PO DAILY Gastrointestinal 03/17/24 03/28/25 Unknown History
release Issue
ondansetron HCl 4 mg tablet 4 mg PO Q6H PRN nausea 03/17/24 03/28/25 Unknown History
sertraline 50 mg tablet 50 mg PO DAILY Mental 03/17/24 03/28/25 Unknown History
Health/Anxiety
trazodone 100 mg tablet 100 mg PO HS Mental Health/Anxiety 03/17/24 03/28/25 Unknown History
furosemide 20 mg tablet 20 mg PO DAILY #0 tabs 03/22/24 03/28/25 Unknown Rx
lorazepam 0.5 mg tablet 0.25 mg PO DAILY PRN anti-diarrheal 03/28/25 03/28/25 Unknown History
potassium chloride 20 mEq 20 meq PO DAILY hypokalemia 03/28/25 03/28/25 Unknown History
tablet,extended release
mirtazapine 15 mg tablet 15 mg PO DAILY@1800 03/29/25 03/29/25 Unknown History
Review of Systems
Vitals / Labs / Diagnostic Testing
Vital Signs
Temp Pulse Resp BP Pulse Ox
97 F 62 15 129/68 100
03/28/25 21:54 03/29/25 08:30 03/29/25 08:30 03/29/25 08:00 03/29/25 08:30
Lab Data
03/29/25 05:34
03/29/25 05:34
Diagnostic Testing:
Assessment
-
Patient is a 74-year-old female with previous history of dementia, hypertension presenting to ER from [place] for evaluation of right sided chest pain. She was sent to [facility] ER for evaluation, chest x-ray demonstrating small
pneumothorax. She has history of extensive kidney stones with CT imaging demonstrating right distal ureteral lithiasis with right sided hydronephrosis.
Denies prior known history of lung disease, does not see [employer] [facility] as outpatient. History is limited due to history of dementia as well. We are consulted for evaluation.
Small spontaneous ptx, suspect from underlying lung disease
Right upper lobe lung mass measuring 1.5 x 2.4 cm
Obstructive renal calculus with moderate hydronephrosis
Urinary bladder nodule measuring 8 mm concerning for urothelial neoplasm
Leukocytosis
EFRA, baseline creatinine 0.9, now 1.4
Conditions present prior to admission
Dementia
Hypertension
HFpEF / Severe Tricuspid Regurgitation
Nephrolithiasis
Anxiety / Depression
Plan
No oxygen was needed on admission, currently saturating 100% on RA
Prior history of lung disease is not noted, never seen my [employer] in past
CXR/CT obtained indicating lung mass and ptx, likely due to the former--repeat CXR does appear better
Difficult situation given her dementia, chest tube at this time does not seem urgent or necessary if improving
Discussed with care team, with observation, if expansion occurs can place
I suspect she has underlying lung disease given emphysema
She reports she is a non-smoker, I am not sure that this history is accurate
No prior PFTs for review, I am not sure that she is able to perform this as well
Other imaging reviewed--she has lung mass and bladder nodules concerning for neoplasms, possibly two separate
This would need to be reviewed with family eventually about pursuing this
CHF history, maintained on lasix
Prior ECHO results are reviewed indicating stable function with mild-mod , severe TR, severe PH
Pulmonary hypertension may be related to underlying severe lung disease
Obstructive uropathy with moderate hydronephrosis noted
Urology following and aware, needing intervention
EFRA noted as well likely post renal
Risk of anesthesia with intubation would be great and her condition
I had a long discussion with her POA, Nick who is her cousin. I explained her current situation and needing surgery. Intubation and mechanical ventilation would worsen her lung disease. She may have risk for prolongation on the vent. They will
need to discuss this with the family and make a decision moving forward. Nick would like to discuss with his brothers to decide, we can reassess in the next 24 hours. Care team is updated as well.
We will follow
Diagnostic Data
Chest X-Ray: 03/29/25-Small right apical pneumothorax. Improved
CT Scan: CAP 03/28/25-Right pneumothorax. COPD. Possible lung carcinoma. Further evaluation/follow-up PET/CT examination advised.
6 mm calculus in the distal right ureter with obstructive uropathy. 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
Echo: 03/18/24- Normal left ventricular size and function. Normal regional wall motion. Normal left ventricular wall thickness. LV ejection fraction is 55-60% by visual assessment. Normal diastolic function. Mitral valve opens normally. Thickened
mitral valve leaflets. Mild mitral regurgitation. Trileaflet aortic valve. Thickened aortic valve with normal leaflet excursion. Mild to moderate aortic regurgitation. Tricuspid valve opens normally. Severe tricuspid regurgitation. Estimated
pulmonary artery pressure of 55 mmHg. Assuming a right atrial pressure of 8 mmHg. Pleural effusion present.
PFT's:
Reports and relevant images were personally reviewed.
Total time spent on this consultation __75__ minutes which includes review of history, physical exam, medications, laboratory data, personal review of imaging, extensive review of outpatient records, discussion with care team and respiratory therapy.
[2025-03-29] MEDS: FLOMAX 0.4 MG PO (09:18)
[2025-03-29] MEDS: PROTONIX 40 MG PO (09:18)
[2025-03-29] MEDS: NAMENDA 10 MG PO ×2 (09:18→19:51)
[2025-03-29] MEDS: NORVASC 5 MG PO (09:18)
[2025-03-29] MEDS: ZOLOFT 50 MG PO (09:26)
--- NOTE | 2025-03-29 09:53 | CM ---
Chart reviewed and spoke with patient at ED bedside
Spoke with nurse at [facility] at [phone]
Spoke with her cousin ANA Soto at [phone]
Per cousin she has been in [place] since 2022 due to dementia
PLOF Needs assistance with ADLs and ambulates w/o any AD
PCP Bella Montemayor
Medication managed by [facility]
no hx of VN nor SNF per POA, cousin
DCP is to return back to [place]
CM will continue to follow up for any dcp needs
--- NOTE | 2025-03-29 12:04 | CONS.URO ---
Consultation
-
Date/Time Consultation Performed: 03/29/25, 0750
Performing Provider: Sachi
Reason for Consultation: obstructing R ureteral stone
Medical History
History of Present Illness
74y F with PMH significant for senile dementia and hypertension who presents to ED from [place] for evaluation of right-sided pain.
History/report was obtained from hospitalist nodes via ED staff and POA via phone. She reportedly had R sided pain yesterday evening > brought to ER.
POA via phone stated that patient has extensive prior h/o kidney stones, requiring cysto / lithotripsy in the past.
In the ER, she is comfortable appearing. AFVSS. WBC 11.5, Cr 1.4 (baseline ~1.1), UA 2+ LE, 6-10 WBCs, no nitrites.
CT A/P with contrast showed:
Right pneumothorax.
COPD.
Possible lung carcinoma. Further evaluation/follow-up PET/CT examination advised.
6 mm calculus in the distal right ureter with obstructive uropathy.
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
Allergies/Home Medications
Allergies
Allergy/AdvReac Type Severity Reaction Status Date / Time
No Known Allergies Allergy Unverified 03/17/24 14:57
Home Medications
�Medication �Instructions �Recorded �Confirmed �Type
amlodipine 5 mg tablet 5 mg PO DAILY Blood Pressure 03/17/24 03/29/25 History
donepezil 10 mg tablet 10 mg PO HS Neurological Condition 03/17/24 03/29/25 History
loperamide 2 mg tablet 4 mg PO Q6HPRN PRN diarrhea 03/17/24 03/29/25 History
memantine 10 mg tablet 10 mg PO BID Neurological Condition 03/17/24 03/29/25 History
omeprazole 40 mg capsule,delayed 40 mg PO DAILY Gastrointestinal 03/17/24 03/29/25 History
release Issue
ondansetron HCl 4 mg tablet 4 mg PO Q6HPRN PRN nausea 03/17/24 03/29/25 History
sertraline 50 mg tablet 50 mg PO DAILY Mental 03/17/24 03/29/25 History
Health/Anxiety
trazodone 100 mg tablet 100 mg PO HS Mental Health/Anxiety 03/17/24 03/29/25 History
lorazepam 0.5 mg tablet 0.25 mg PO DAILY Mental 03/28/25 03/29/25 History
Health/Anxiety
potassium chloride 20 mEq 20 meq PO DAILY hypokalemia 03/28/25 03/29/25 History
tablet,extended release
furosemide 20 mg tablet (Lasix) 20 mg PO MOWEFR Fluid 03/29/25 03/29/25 History
Retention/Swelling
mirtazapine 15 mg tablet 7.5 mg PO DAILY@1800 03/29/25 03/29/25 History
Physical Exam
Vital Signs
Vital Signs
Temp Pulse Resp BP Pulse Ox
97 F 66 18 136/81 100
03/28/25 21:54 03/29/25 10:30 03/29/25 10:30 03/29/25 10:00 03/29/25 08:30
Lab / Testing Results
Laboratory Results
03/29/25 05:34
03/29/25 05:34
Physical Exam
General: No Apparent Distress and Comfortable
HEENT: Normocephalic
Respiratory: Clear
GI: Soft
Genito-urinary: No Costovertebral Tend
Neuro: Awake
Psych: Calm
Assessment / Plan
-
74y F with PMH significant for senile dementia, nephrolithiasis hypertension who presents to ED from [place] for evaluation of right-sided pain, found to have obstructing R distal ureteral stone with mod R hydro, possible calyceal rupture, small
bladder lesion, as well as right pneumothorax, COPD, possible lung carcinoma and
emphysema
Plan:
- Continue IVF/hydration
- Start flomax 0.4 mg qd if BP tolerates
- Start medical expulsive therapy for obstructing ureteral stone for now given patient has a pneumothorax that is being monitored conservatively. General anesthesia in the setting of an active pneumothorax, despite small and improving, may be
unfavorable
- We will discuss with pulmonary and anesthesia for pre-op clearance and requirements for possible general anesthesia. Patient has baseline dementia and is an unreliable historian in the setting of worsening obstructive uropathy (fevers/chills,
pain, PO intolerance, etc) - in this setting it may benefit her to have her stone treated if safe from anesthesia/pulmonary standpoint with R pneumothorax
- NPO at midnight
--- NOTE | 2025-03-29 12:19 | W.PN.UPDATE ---
Addendum entered and electronically signed by Martin Finch MD 03/29/25 12:46:
per urologist, patient may need surgery and will require pre-op risk stratification from pulmonary perspective due to pneumothorax. Pulmonary updated.
Original Note:
Update Note
Progress Note Update
Seen and examined independent of overnight physician. States of mild decrease in flank pain. states she is hungry.
General: Other (74y F in no apparent distress at present. Physical positioning with some guarding of entire side.)
HEENT: Moist mucous membranes and Other (Neck supple.)
Respiratory: Other (Breath sounds are present bilaterally. No noted wheezing or rhonchi.)
Cardiac: S1/S2 and Regular Rhythm; No Murmur
GI: Soft, Non Distended, Normal Bowel Sounds and Other (Apparent R sided tenderness / guarding. Bowel sounds are present.)
Genito-urinary: Costovertebral angle tend
Musculoskeletal: No Clubbing, No Cyanosis and No Edema
Neuro: Awake and Alert; No Oriented
A/P: Patient is a 74y F with PMH significant for dementia, HTN and nephrolithiasis who presents to ED for evaluation of right-sided pain.
Right Distal Ureterolithiasis
Right Sided Hydronephrosis +/- Calyceal Rupture secondary to the above
- pain control / supportive measures.
- Begin tamsulosin. Avoid excessive IVFs for now.
- d.w with urology-plan is for observation and no plan for surgery
- Empiric IV abx for now
- Follow for any new / worsening symptoms, development of fevers, etc.
Right Pneumothorax
Severe Emphysema
- CT done in the ED shows < 25% anterior pneumothorax on the R.
- Severe emphysema, cystic changes at R apex. Bilateral midlung mucus plugging. CECIL nodule (1.1cm).
- Initial mild hypoxemia improved with supplemental O2. No cough, fever, etc.
- Follow clinical exam and serial CXRs.
- Pulmonary consulted for additional recommendations.
- No formal dx of COPD noted and on no chronic inhalers, etc.
- Discussed with pulmonary and interventional radiology-plan is to observe patient for now. Chest x-ray with mild improvement.
Benign Hypertension
- Continue home amlodipine with holding parameters.
Chronic HFpEF
Severe TR
- Does not appear volume overloaded at present.
- Hold Lasix acutely. Follow I/Os, daily weights, etc.
Senile Dementia with Behavioral Disturbance
- Stable. Not anxious / agitated at present.
- Hold Aricept for now with noted QT prolongation on EKG.
- Continue other psychotropic medications.
- Follow for changes in mood.
Elevated creatinine likely CKD
Monitor creatinine for now in the setting of hydronephrosis, renal stone etc
DVT Prophylaxis: SCDs/start hep sc
Code Status: DNR
[2025-03-29] MEDS: REMERON 15 MG PO (17:18)
[2025-03-29] MEDS: TYLENOL 650 MG PO (18:34)
[2025-03-29] MEDS: HEPARIN 5000 UNITS SC (19:51)
[2025-03-29] MEDS: DESYREL 100 MG PO (22:33)
[2025-03-30 03:05] VITALS: BP 127/57
[2025-03-30] MEDS: ROCEPHIN 1000 MG IV (04:39)
[2025-03-30] MEDS: STERILE WATER FOR INJECTION 10 ML IV (04:39)
[2025-03-30 04:45] VITALS: BMI 18.4
[2025-03-30 06:00] VITALS: BMI 18.4
[2025-03-30 07:40] VITALS: BP 133/70
[2025-03-30] MEDS: HEPARIN 5000 UNITS SC ×2 (08:07→20:08)
[2025-03-30] MEDS: FLOMAX 0.4 MG PO (08:07)
[2025-03-30] MEDS: NAMENDA 10 MG PO ×2 (08:08→20:09)
[2025-03-30] MEDS: NORVASC 5 MG PO (08:09)
[2025-03-30] MEDS: PROTONIX 40 MG PO (08:09)
[2025-03-30] MEDS: ZOLOFT 50 MG PO (08:09)
[2025-03-30 08:24] LABS: Hematocrit 39.3 % (37.0-47.0); Hemoglobin 12.2 g/dL (12.0-16.0); Mean Corp Hgb Conc. 31.0 g/dL (33.0-37.0); Mean Corpuscular Volume 91.2 fL (81.0-99.0); Nucleated Red Blood Cells % 0 %; Platelet Count 222 10^3/uL (130-400); Red Cell Dist. Width 16.3 % (11.5-14.5)
[2025-03-30] MEDS: LR 1000 IV (08:35)
[2025-03-30 08:42] LABS: Blood Urea Nitrogen 19 mg/dl (7-17); Calcium 8.6 mg/dl (8.4-10.2); Carbon Dioxide 25 mmol/L (22-30); Chloride 106 mmol/L (98-107); Estimated Creatinine Clearance 24 ml/min; Glucose 83 mg/dl (70-99); Potassium 4.1 mmol/L (3.5-5.1); Sodium 139 mmol/L (135-145); eGFR 42.88
[2025-03-30] MEDS: ATIVAN 0.25 MG PO (11:26)
--- NOTE | 2025-03-30 12:03 | VATNOTE ---
Called by PCN to replace IV after Pt removed her PIV site. Upon introducing self to patient and informing her what I had been asked to do, pt adamantly refused PIV placement. States 'I'm leaving, Eric is coming to take me home.' Asked PCN for
assistance, PCN at bedside trying to gain pt's cooperation, pt continues to refuse stating she wants to leave. PCN to notify care team. Will call VAT if further attempts for PIV are needed.
[2025-03-30] MEDS: ZYPREXA 5 MG IM (12:39)
[2025-03-30] MEDS: STERILE WATER FOR INJECTION 2.1 ML IM (12:55)
--- NOTE | 2025-03-30 13:18 | W.PN.PUL3 ---
Today's Communication / Plan
-
Agree with repeat chest x-ray, remains otherwise stable
Do not think she can perform PFTs due to cognitive impairment
Follow-up with family regarding procedure
We will plan to proceed with intubation if agreeable then repeat chest x-ray and placement of chest tube if also indicated
High preoperative risk noted
Assessment
-
Patient is a 74-year-old female with previous history of dementia, hypertension presenting to ER from [place] for evaluation of right sided chest pain. She was sent to [facility] ER for evaluation, chest x-ray demonstrating small
pneumothorax. She has history of extensive kidney stones with CT imaging demonstrating right distal ureteral lithiasis with right sided hydronephrosis.
Denies prior known history of lung disease, does not see animal husbandman as outpatient. History is limited due to history of dementia as well. We are consulted for evaluation.
Small spontaneous ptx, suspect from underlying lung disease
Right upper lobe lung mass measuring 1.5 x 2.4 cm
Obstructive renal calculus with moderate hydronephrosis
Urinary bladder nodule measuring 8 mm concerning for urothelial neoplasm
Leukocytosis
EFRA, baseline creatinine 0.9, now 1.4
Conditions present prior to admission
Dementia
Hypertension
HFpEF / Severe Tricuspid Regurgitation
Nephrolithiasis
Anxiety / Depression
Plan
No oxygen was needed on admission, currently saturating 100% on RA
Prior history of lung disease is not noted, never seen my animal husbandman in past
CXR/CT obtained indicating lung mass and ptx, likely due to the former--repeat CXR does appear better
Difficult situation given her dementia, chest tube at this time does not seem urgent or necessary if improving
Discussed with care team, with observation, if expansion occurs can place
I suspect she has underlying lung disease given emphysema
She reports she is a non-smoker, I am not sure that this history is accurate
No prior PFTs for review, I am not sure that she is able to perform this well
Other imaging reviewed--she has lung mass and bladder nodules concerning for neoplasms, possibly two separate
This would need to be reviewed with family eventually about pursuing this
CHF history, maintained on lasix
Prior ECHO results are reviewed indicating stable function with mild-mod , severe TR, severe PH
Pulmonary hypertension may be related to underlying severe lung disease
Obstructive uropathy with moderate hydronephrosis noted
Urology following and aware, needing intervention
EFRA noted as well likely post renal
Risk of anesthesia with intubation would be great and her condition
I had a long discussion with her POA, Nick who is her cousin. I explained her current situation and needing surgery. Intubation and mechanical ventilation would worsen her lung disease. She may have risk for prolongation on the vent. They will
need to discuss this with the family and make a decision moving forward. Nick would like to discuss with his brothers to decide, we can reassess in the next 24 hours. Care team is updated as well.
Follow-up with decision making today
We will follow
Diagnostic Data
Chest X-Ray: 03/29/25-Small right apical pneumothorax. Improved
CT Scan: CAP 03/28/25-Right pneumothorax. COPD. Possible lung carcinoma. Further evaluation/follow-up PET/CT examination advised.
6 mm calculus in the distal right ureter with obstructive uropathy. 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
Echo: 03/18/24- Normal left ventricular size and function. Normal regional wall motion. Normal left ventricular wall thickness. LV ejection fraction is 55-60% by visual assessment. Normal diastolic function. Mitral valve opens normally. Thickened
mitral valve leaflets. Mild mitral regurgitation. Trileaflet aortic valve. Thickened aortic valve with normal leaflet excursion. Mild to moderate aortic regurgitation. Tricuspid valve opens normally. Severe tricuspid regurgitation. Estimated
pulmonary artery pressure of 55 mmHg. Assuming a right atrial pressure of 8 mmHg. Pleural effusion present.
PFT's:
Reports and relevant images were personally reviewed.
Total time spent on this consultation __51__ minutes which includes review of history, physical exam, medications, laboratory data, personal review of imaging, extensive review of outpatient records, discussion with care team and respiratory therapy.
Subjective Data
-
Date of Service:
Date of Service: March 30, 2025
Chief Complaint: Pulmonary Follow Up
Subjective:
No events overnight, remained stable on low supplemental O2
Cannot provide ROS due to dementia
Objective Data
Data Reviewed
Vital Signs / I&O / Oxygen:
Vital Signs
Temp Pulse Resp BP Pulse Ox
97.5 F 81 16 133/70 98
03/30/25 07:40 03/30/25 07:40 03/30/25 07:40 03/30/25 07:40 03/30/25 07:40
Intake and Output
03/29/25 03/30/25 03/31/25
06:59 06:59 06:59
Intake Total 500 / 500
Output Total 100 / 100 300 / 300
Balance -100 / -100 200 / 200
SaO2 98
Nasal Cannula flow liters per 2
minute
Physical Exam
General: Comfortable, Poor Appetite and Other (thin appearing)
HEENT: Normocephalic, Anicteric and Moist Mucous Membranes
Cardiovascular: S1-S2 and Regular Rhythm
Respiratory: Non-Labored Respirations and Other (Diminished breath sounds overall)
GI: Soft, Non Distended and Non Tender
Neurology: Awake, Alert and Other (Confused, baseline)
Skin: Warm and Dry
Labs/Micro/Reports
Lab Data
03/30/25 07:39
03/30/25 07:39
Microbiology
03/28/25 22:59 Urine Urine Culture - Final
No Significant Growth
--- NOTE | 2025-03-30 13:34 | W.PN.HOSP.TC ---
Addendum entered and electronically signed by Martin Finch MD 03/30/25 15:44:
updated Nick over the phone in details once again.
Original Note:
Today's Communication/Plan
-
Status post zyprexa
Repeat portable chest x-ray pending
Surgery timing per urology
Remains NPO. IV fluids.
Continue with antibiotics
Assessment / Plan
Assessment / Plan
General: Anxious, agitated, cachexia
HEENT: Moist mucous membranes and Other (Neck supple.)
Respiratory: Decreased breath sounds, oxygenation noted
Cardiac: S1/S2 and Regular Rhythm; No Murmur
GI: Soft, nontender nondistended
Genito-urinary: Costovertebral angle tend
Musculoskeletal: No Clubbing, No Cyanosis and No Edema
Neuro: Awake and Alert; No Oriented, apparent dementia
Psych-agitated
A/P: Patient is a 74y F with PMH significant for dementia, HTN and nephrolithiasis who presents to ED for evaluation of right-sided pain.
Right Distal Ureterolithiasis
Right Sided Hydronephrosis +/- Calyceal Rupture secondary to the above
- pain control / supportive measures.
- Begin tamsulosin. IV fluid
- Empiric IV abx for now
- Follow for any new / worsening symptoms, development of fevers, etc.
- Pulmonary preop risk stratification noted. Timing of surgery possibly later today?
Right Pneumothorax
Severe Emphysema
Lung mass suspected malignancy
- CT done in the ED shows < 25% anterior pneumothorax on the R.
- Severe emphysema, cystic changes at R apex. Bilateral midlung mucus plugging. CECIL nodule (1.1cm).
- Initial mild hypoxemia improved with supplemental O2. No cough, fever, etc.
- Follow clinical exam and serial CXRs.
- Pulmonary consulted for additional recommendations.
- No formal dx of COPD noted and on no chronic inhalers, etc.
- Repeat chest x-ray pending for today.
Benign Hypertension
- Continue home amlodipine with holding parameters.
Chronic HFpEF
Severe TR
- Does not appear volume overloaded at present.
- Hold Lasix acutely. Follow I/Os, daily weights, etc.
Senile Dementia with Behavioral Disturbance
- Hold Aricept for now with noted QT prolongation on EKG.
- Continue other psychotropic medications-continue with Ativan prn and Risperdal BID dosing added.
- Follow for changes in mood.
Elevated creatinine likely CKD
-Monitor creatinine for now in the setting of hydronephrosis, renal stone etc
-mild improvement
Lung mass and bladder lesions noted and were discussed with POA. Patient went to follow-up outpatient with oncology
DVT Prophylaxis: SCDs/start hep sc
Code Status: DNR
Discussed with POA Nick over the phone in detail. Nick was notified of patient with pneumothorax and may require prolonged intubation postprocedure. Patient was also notified about lung lesions and bladder lesions. They want to go ahead with the
surgery knowing the risk.
Anticipated Discharge: > 48 hours
Subjective/Interval History
-
Date of Service: March 30, 2025
Patient was anxious and agitated
Wanting to eat
Objective Data
-
Labs:
Laboratory Results
03/30/25
07:39
WBC 6.4
Hgb 12.2
Hct 39.3
Plt Count 222
Sodium 139
Potassium 4.1
Chloride 106
Carbon Dioxide 25
BUN 19 H
Creatinine 1.3 H
Glucose 83
Calcium 8.6
Vital Signs:
Vital Signs
Temp Pulse Resp BP Pulse Ox
97.5 F 81 16 133/70 98
03/30/25 07:40 03/30/25 07:40 03/30/25 07:40 03/30/25 07:40 03/30/25 07:40
I&O
03/29/25 03/30/25 03/31/25
06:59 06:59 06:59
Intake Total 500 / 500
Output Total 100 / 100 300 / 300
Balance -100 / -100 200 / 200
Data Reviewed
-
Total Time Spent with Patient (in minutes): 60
--- NOTE | 2025-03-30 14:24 | PTCARENOTE ---
Pt very upset and became very agitated as the shift progressed. Pt screaming, 'I don't want this! NO!' Pulled IV out and removed sequential teds and began to stand up at the edge of bed. Pt assisted back into bed and repositioned. Pt able to take
Ativan 0.25mg po at 1126 but continued to refuse to have her IV restarted. PCXR ordered as well and pt screamed, 'Get out of here! you cannot do that!'. Pt given Zyprexa 5mg IM at 1255. Pt remains calmer at present and was able to have PCXR taken.
Will attempt to have her IV restarted as well.
--- NOTE | 2025-03-30 14:43 | CM ---
Chart reviewed. Patient is from [facility] unit. CM spoke with Sara, [facility] at [facility] (tel#[phone]). Patient will need to be reassessed prior to return to [facility]. CM will need to contact [facility] at [facility] closer to
patient's d/c for reassessment. Pt/OT evals are needed.
Plan[place] [facility] [place]
[2025-03-30 15:50] VITALS: BP 92/69
[2025-03-30] MEDS: REMERON PO (16:57)
--- NOTE | 2025-03-30 17:15 | W.PN.UPDATE ---
Update Note
Progress Note Update
Case discussed with pulmonology and hospital medicine. Given patient's dementia and being an unreliable historian, with unlikely stone passage with medical expulsive therapy, we will try to have her stone treated if safe/possible while she is
admitted. CT A/P shows R renal stone burden RLP measuring ~1.5 cm and 6 mm distal R ureteral stone, moderate R hydro with possible calyceal rupture/fluid collection near R renal pelvis and R proximal ureter. Also ~8 mm R lateral bladder lesion and 6
mm tiny midline anterior bladder wall midline lesion.
VSS. UCx NG, WBC down to 6, Cr 1.3 from 1.4.
Will attempt R URS/LL/stent if safe, otherwise will perform R ureteral stent today and pt will need to f/u for staged procedure for stone treatment at a later date.
Discussed with ANA Soto (first cousin) that there is risk for prolonged intubation or need for re-intubation post-operatively. Agreed with risks and informed consent signed.
[2025-03-30] MEDS: REMERON 15 MG PO (18:13)
[2025-03-30 19:00] VITALS: BP 122/64
[2025-03-30] MEDS: RISPERDAL 0.25 MG PO (20:09)
[2025-03-30] MEDS: DESYREL 100 MG PO (21:43)
[2025-03-30 22:52] VITALS: BP 100/49
[2025-03-31 03:22] VITALS: BMI 18.1
[2025-03-31] MEDS: LR 1000 IV ×2 (03:24→17:47)
[2025-03-31 03:49] VITALS: BP 105/65
[2025-03-31] MEDS: ROCEPHIN 1000 MG IV (05:13)
[2025-03-31] MEDS: STERILE WATER FOR INJECTION 10 ML IV (05:13)
[2025-03-31 06:00] VITALS: BMI 18.1
[2025-03-31 07:22] LABS: Hematocrit 35.4 % (37.0-47.0); Hemoglobin 11.4 g/dL (12.0-16.0); Mean Corp Hgb Conc. 32.2 g/dL (33.0-37.0); Mean Corpuscular Volume 91.0 fL (81.0-99.0); Nucleated Red Blood Cells % 0 %; Platelet Count 210 10^3/uL (130-400); Red Cell Dist. Width 16.2 % (11.5-14.5)
[2025-03-31 07:45] VITALS: BP 121/71
[2025-03-31 07:53] LABS: Blood Urea Nitrogen 21 mg/dl (7-17); Calcium 8.3 mg/dl (8.4-10.2); Carbon Dioxide 24 mmol/L (22-30); Chloride 109 mmol/L (98-107); Estimated Creatinine Clearance 28 ml/min; Glucose 78 mg/dl (70-99); Potassium 3.9 mmol/L (3.5-5.1); Sodium 139 mmol/L (135-145); eGFR 52.40
--- NOTE | 2025-03-31 09:21 | W.PN.PUL3 ---
Today's Communication / Plan
-
Repeat CXRs showing continued improvement though not complete resolved yet
Family and care team aware of perioperative risks
Planning for stent placement per Uro
Continue serial imaging observation
Assessment
-
Patient is a 74-year-old female with previous history of dementia, hypertension presenting to ER from [place] for evaluation of right sided chest pain. She was sent to [facility] ER for evaluation, chest x-ray demonstrating small
pneumothorax. She has history of extensive kidney stones with CT imaging demonstrating right distal ureteral lithiasis with right sided hydronephrosis.
Denies prior known history of lung disease, does not see terrazzo helper as outpatient. History is limited due to history of dementia as well. We are consulted for evaluation.
Small spontaneous ptx, suspect from underlying lung disease
Right upper lobe lung mass measuring 1.5 x 2.4 cm
Obstructive renal calculus with moderate hydronephrosis
Urinary bladder nodule measuring 8 mm concerning for urothelial neoplasm
Leukocytosis
EFRA, baseline creatinine 0.9, now 1.4
Conditions present prior to admission
Dementia
Hypertension
HFpEF / Severe Tricuspid Regurgitation
Nephrolithiasis
Anxiety / Depression
Plan
No oxygen was needed on admission, currently saturating 100% on RA
Prior history of lung disease is not noted, never seen my terrazzo helper in past
CXR/CT obtained indicating lung mass and ptx, likely due to the former--repeat CXR does appear better
Difficult situation given her dementia, chest tube at this time does not seem urgent or necessary if improving
Discussed with care team, with observation, if expansion occurs can place
Repeat CXR showing continued improvement
I suspect she has underlying lung disease given emphysema
She reports she is a non-smoker, I am not sure that this history is accurate
No prior PFTs for review, I am not sure that she is able to perform this well
Other imaging reviewed--she has lung mass and bladder nodules concerning for neoplasms, possibly two separate
This would need to be reviewed with family eventually about pursuing this
CHF history, maintained on lasix
Prior ECHO results are reviewed indicating stable function with mild-mod , severe TR, severe PH
Pulmonary hypertension may be related to underlying severe lung disease
Obstructive uropathy with moderate hydronephrosis noted
Urology following and aware, needing intervention
EFRA noted as well likely post renal
Risk of anesthesia with intubation would be great and her condition
I had a long discussion with her POA, Nick who is her cousin. I explained her current situation and needing surgery. Intubation and mechanical ventilation would worsen her lung disease. She may have risk for prolongation on the vent. They will
need to discuss this with the family and make a decision moving forward. Nick would like to discuss with his brothers to decide, we can reassess in the next 24 hours. Care team is updated as well.
Follow-up with decision making today
We will follow
Diagnostic Data
Chest X-Ray: 03/29/25-Small right apical pneumothorax. Improved
CT Scan: CAP 03/28/25-Right pneumothorax. COPD. Possible lung carcinoma. Further evaluation/follow-up PET/CT examination advised.
6 mm calculus in the distal right ureter with obstructive uropathy. 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
Echo: 03/18/24- Normal left ventricular size and function. Normal regional wall motion. Normal left ventricular wall thickness. LV ejection fraction is 55-60% by visual assessment. Normal diastolic function. Mitral valve opens normally. Thickened
mitral valve leaflets. Mild mitral regurgitation. Trileaflet aortic valve. Thickened aortic valve with normal leaflet excursion. Mild to moderate aortic regurgitation. Tricuspid valve opens normally. Severe tricuspid regurgitation. Estimated
pulmonary artery pressure of 55 mmHg. Assuming a right atrial pressure of 8 mmHg. Pleural effusion present.
PFT's:
Reports and relevant images were personally reviewed.
Total time spent on this consultation __45__ minutes which includes review of history, physical exam, medications, laboratory data, personal review of imaging, extensive review of outpatient records, discussion with care team and respiratory therapy.
Subjective Data
-
Date of Service:
Date of Service: March 31, 2025
Chief Complaint: Pulmonary Follow Up
Subjective:
No new complaints, still remains confused
No events ON
Objective Data
Data Reviewed
Vital Signs / I&O / Oxygen:
Vital Signs
Temp Pulse Resp BP Pulse Ox
98.2 F 77 16 121/71 98
03/31/25 07:45 03/31/25 07:45 03/31/25 07:45 03/31/25 07:45 03/31/25 07:45
Intake and Output
03/30/25 03/31/25 04/01/25
06:59 06:59 06:59
Intake Total 500 / 500 600 / 600
Output Total 300 / 300 400 / 400
Balance 200 / 200 200 / 200
SaO2 98
Nasal Cannula flow liters per 2
minute
Physical Exam
General: Comfortable, Poor Appetite and Other (thin appearing)
HEENT: Normocephalic, Anicteric and Moist Mucous Membranes
Cardiovascular: S1-S2 and Regular Rhythm
Respiratory: Non-Labored Respirations and Other (Diminished breath sounds overall)
GI: Soft, Non Distended and Non Tender
Neurology: Awake, Alert and Other (Confused, baseline)
Skin: Warm and Dry
Labs/Micro/Reports
Lab Data
03/31/25 06:51
03/31/25 06:51
Microbiology
03/28/25 22:59 Urine Urine Culture - Final
No Significant Growth
[2025-03-31] MEDS: FLOMAX 0.4 MG PO (09:51)
[2025-03-31] MEDS: RISPERDAL 0.25 MG PO ×2 (09:52→20:04)
[2025-03-31] MEDS: PROTONIX 40 MG PO (09:52)
[2025-03-31] MEDS: NAMENDA 10 MG PO ×2 (09:52→20:04)
[2025-03-31] MEDS: ZOLOFT 50 MG PO (09:58)
[2025-03-31] MEDS: NORVASC 5 MG PO (10:00)
[2025-03-31] MEDS: HEPARIN 5000 UNITS SC ×2 (10:51→20:04)
[2025-03-31 11:35] VITALS: BP 101/67
[2025-03-31] MEDS: ATIVAN 0.25 MG PO (12:09)
--- NOTE | 2025-03-31 13:21 | W.PN.HOSP.TC ---
Today's Communication/Plan
-
Rehab evaluation
OR likely later today
Improvement in pneumothorax
Continue with IV fluids
Continue with IV antibiotics
Assessment / Plan
Assessment / Plan
General: Anxious, agitated, cachexia
HEENT: Moist mucous membranes and Other (Neck supple.)
Respiratory: Decreased breath sounds, oxygenation noted
Cardiac: S1/S2 and Regular Rhythm; No Murmur
GI: Soft, nontender nondistended
Genito-urinary: Mild costovertebral angle tend
Musculoskeletal: No Clubbing, No Cyanosis and No Edema
Neuro: Awake Not Oriented, apparent dementia
Psych-agitated
A/P: Patient is a 74y F with PMH significant for dementia, HTN and nephrolithiasis who presents to ED for evaluation of right-sided pain.
Right Distal Ureterolithiasis
Right Sided Hydronephrosis +/- Calyceal Rupture secondary to the above
- pain control / supportive measures.
- Begin tamsulosin. IV fluid
- Empiric IV abx for now
- Follow for any new / worsening symptoms, development of fevers, etc.
- Pulmonary preop risk stratification noted. Timing of surgery possibly later today
Right Pneumothorax
Severe Emphysema
Lung mass suspected malignancy
- CT done in the ED shows < 25% anterior pneumothorax on the R.
- Severe emphysema, cystic changes at R apex. Bilateral midlung mucus plugging. CECIL nodule (1.1cm).
- Initial mild hypoxemia improved with supplemental O2. No cough, fever, etc.
- Follow clinical exam and serial CXRs.
- Pulmonary consulted for additional recommendations.
- No formal dx of COPD noted and on no chronic inhalers, etc.
- Repeat chest x-ray 03/31/25 Stable small right apical pneumothorax. Right lateral basilar pneumothorax seen previously, likely resolved.
Benign Hypertension
- Continue home amlodipine with holding parameters.
Chronic HFpEF
Severe TR
- Does not appear volume overloaded at present.
- Hold Lasix acutely. Follow I/Os, daily weights, etc.
Senile Dementia with Behavioral Disturbance
- Hold Aricept for now with noted QT prolongation on EKG.
- Continue other psychotropic medications-continue with Ativan prn and Risperdal BID dosing added. Psychotropic medication addition was discussed with patient POA and he was agreeable and amenable to it.
- Follow for changes in mood.
Elevated creatinine likely CKD
-Monitor creatinine for now in the setting of hydronephrosis, renal stone etc
-mild improvement
Lung mass and bladder lesions noted and were discussed with POA. Patient went to follow-up outpatient with oncology
DVT Prophylaxis: SCDs/start hep sc
Code Status: DNR
Anticipated Discharge: > 48 hours
Subjective/Interval History
-
Date of Service: March 31, 2025
remains confused
Objective Data
-
Labs:
Laboratory Results
03/31/25
06:51
WBC 5.5
Hgb 11.4 L
Hct 35.4 L
Plt Count 210
Sodium 139
Potassium 3.9
Chloride 109 H
Carbon Dioxide 24
BUN 21 H
Creatinine 1.1 H
Glucose 78
Calcium 8.3 L
Vital Signs:
Vital Signs
Temp Pulse Resp BP Pulse Ox
97.9 F 69 16 101/67 98
03/31/25 11:35 03/31/25 11:35 03/31/25 11:35 03/31/25 11:35 03/31/25 11:35
I&O
03/30/25 03/31/25 04/01/25
06:59 06:59 06:59
Intake Total 500 / 500 600 / 600
Output Total 300 / 300 400 / 400
Balance 200 / 200 200 / 200
Data Reviewed
-
Total Time Spent with Patient (in minutes): 55
[2025-03-31 15:40] VITALS: BP 124/62
[2025-03-31] MEDS: REMERON 15 MG PO (17:53)
[2025-03-31 19:53] VITALS: BP 173/80
[2025-03-31] MEDS: DESYREL 100 MG PO (21:05)
[2025-03-31 23:20] VITALS: BP 112/58
[2025-04-01] VITALS (10 sets, daily range): BP systolic 100–135; BP diastolic 58–68; O2SAT 95; BMI 18.4
[2025-04-01] MEDS: STERILE WATER FOR INJECTION 10 ML IV (05:10)
[2025-04-01] MEDS: ROCEPHIN 1000 MG IV (05:10)
[2025-04-01] MEDS: LR 1000 IV ×2 (06:23→21:16)
[2025-04-01] MEDS: PROTONIX 40 MG PO (08:32)
[2025-04-01] MEDS: NAMENDA 10 MG PO ×2 (08:33→20:14)
[2025-04-01] MEDS: FLOMAX 0.4 MG PO (08:33)
[2025-04-01] MEDS: RISPERDAL 0.25 MG PO ×2 (08:33→20:13)
[2025-04-01] MEDS: NORVASC 5 MG PO (08:33)
[2025-04-01] MEDS: ZOLOFT 50 MG PO (08:33)
[2025-04-01] MEDS: HEPARIN SC (08:34)
[2025-04-01 08:37] LABS: Hematocrit 36.9 % (37.0-47.0); Hemoglobin 11.7 g/dL (12.0-16.0); Mean Corp Hgb Conc. 31.7 g/dL (33.0-37.0); Mean Corpuscular Volume 90.7 fL (81.0-99.0); Nucleated Red Blood Cells % 0 %; Platelet Count 225 10^3/uL (130-400); Red Cell Dist. Width 15.8 % (11.5-14.5)
[2025-04-01 09:38] LABS: Blood Urea Nitrogen 15 mg/dl (7-17); Calcium 8.4 mg/dl (8.4-10.2); Carbon Dioxide 24 mmol/L (22-30); Chloride 105 mmol/L (98-107); Estimated Creatinine Clearance 35 ml/min; Glucose 75 mg/dl (70-99); Potassium 3.9 mmol/L (3.5-5.1); Sodium 136 mmol/L (135-145); eGFR > 60.00
--- NOTE | 2025-04-01 09:38 | W.PN.PUL3 ---
Today's Communication / Plan
-
Remains stable, CXR with stable ~5% ptx, improved on follow up images
Planning for OR today, per Uro
If ptx expansion occurs while on vent, can consult for chest tube
Postop admission to ICU if prolonged on vent
Assessment
-
Patient is a 74-year-old female with previous history of dementia, hypertension presenting to ER from [place] for evaluation of right sided chest pain. She was sent to [facility] ER for evaluation, chest x-ray demonstrating small
pneumothorax. She has history of extensive kidney stones with CT imaging demonstrating right distal ureteral lithiasis with right sided hydronephrosis.
Denies prior known history of lung disease, does not see writer technical publications as outpatient. History is limited due to history of dementia as well. We are consulted for evaluation.
Small spontaneous ptx, suspect from underlying lung disease
Right upper lobe lung mass measuring 1.5 x 2.4 cm
Obstructive renal calculus with moderate hydronephrosis
Urinary bladder nodule measuring 8 mm concerning for urothelial neoplasm
Leukocytosis
EFRA, baseline creatinine 0.9, now 1.4
Conditions present prior to admission
Dementia
Hypertension
HFpEF / Severe Tricuspid Regurgitation
Nephrolithiasis
Anxiety / Depression
Plan
No oxygen was needed on admission, currently saturating 100% on RA
Prior history of lung disease is not noted, never seen my writer technical publications in past
CXR/CT obtained indicating lung mass and ptx, likely due to the former--repeat CXR does appear better
Difficult situation given her dementia, chest tube at this time does not seem urgent or necessary if improving
Discussed with care team, with observation, if expansion occurs can place
Repeat CXR showing continued improvement ~5% remains
I suspect she has underlying lung disease given emphysema
She reports she is a non-smoker, I am not sure that this history is accurate
No prior PFTs for review, I am not sure that she is able to perform this well
Other imaging reviewed--she has lung mass and bladder nodules concerning for neoplasms, possibly two separate
This would need to be reviewed with family eventually about pursuing this as outpatient
CHF history, maintained on lasix
Prior ECHO results are reviewed indicating stable function with mild-mod , severe TR, severe PH
Pulmonary hypertension may be related to underlying severe lung disease
Obstructive uropathy with moderate hydronephrosis noted
Urology following and aware, needing intervention
EFRA noted as well likely post renal
Risk of anesthesia with intubation would be great and her condition
I had a long discussion with her POA, Nick who is her cousin. I explained her current situation and needing surgery. Intubation and mechanical ventilation would worsen her lung disease. She may have risk for prolongation on the vent. They will
need to discuss this with the family and make a decision moving forward. Nick would like to discuss with his brothers to decide, we can reassess in the next 24 hours. Care team is updated as well.
Family would like to proceed with procedures
Diagnostic Data
Chest X-Ray: 03/29/25-Small right apical pneumothorax. Improved
CT Scan: CAP 03/28/25-Right pneumothorax. COPD. Possible lung carcinoma. Further evaluation/follow-up PET/CT examination advised.
6 mm calculus in the distal right ureter with obstructive uropathy. 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
Echo: 03/18/24- Normal left ventricular size and function. Normal regional wall motion. Normal left ventricular wall thickness. LV ejection fraction is 55-60% by visual assessment. Normal diastolic function. Mitral valve opens normally. Thickened
mitral valve leaflets. Mild mitral regurgitation. Trileaflet aortic valve. Thickened aortic valve with normal leaflet excursion. Mild to moderate aortic regurgitation. Tricuspid valve opens normally. Severe tricuspid regurgitation. Estimated
pulmonary artery pressure of 55 mmHg. Assuming a right atrial pressure of 8 mmHg. Pleural effusion present.
PFT's:
Reports and relevant images were personally reviewed.
Total time spent on this consultation __45__ minutes which includes review of history, physical exam, medications, laboratory data, personal review of imaging, extensive review of outpatient records, discussion with care team and respiratory therapy.
Subjective Data
-
Date of Service:
Date of Service: April 01, 2025
Chief Complaint: Pulmonary Follow Up
Subjective:
No new events, remains clinically unchanged
No new complaints
Objective Data
Data Reviewed
Vital Signs / I&O / Oxygen:
Vital Signs
Temp Pulse Resp BP Pulse Ox
97.5 F 74 16 129/63 97
04/01/25 07:50 04/01/25 07:50 04/01/25 07:50 04/01/25 08:33 04/01/25 07:50
Intake and Output
03/31/25 04/01/25 04/02/25
06:59 06:59 06:59
Intake Total 600 / 600 750 / 750
Output Total 400 / 400
Balance 200 / 200 750 / 750
SaO2 97
Nasal Cannula flow liters per 2
minute
Physical Exam
General: Comfortable, Poor Appetite and Other (thin appearing)
HEENT: Normocephalic, Anicteric and Moist Mucous Membranes
Cardiovascular: S1-S2 and Regular Rhythm
Respiratory: Non-Labored Respirations and Other (Diminished breath sounds overall)
GI: Soft, Non Distended and Non Tender
Neurology: Awake, Alert and Other (Confused, baseline)
Skin: Warm and Dry
Labs/Micro/Reports
Lab Data
04/01/25 06:32
Microbiology
03/28/25 22:59 Urine Urine Culture - Final
No Significant Growth
--- NOTE | 2025-04-01 11:28 | PTCARENOTE ---
pt refusing vitals. pt is confused. pt is requesting to drink water and eat. patient reminded about NPO for surgery today. will continue to monitor.
--- NOTE | 2025-04-01 11:58 | W.PN.HOSP.TC ---
Today's Communication/Plan
-
IVF while waiting for OR
IV abx
Assessment / Plan
Assessment / Plan
General: Anxious, agitated, cachexia
HEENT: Moist mucous membranes and Other (Neck supple.)
Respiratory: Decreased breath sounds, oxygenation noted
Cardiac: S1/S2 and Regular Rhythm; No Murmur
GI: Soft, nontender nondistended
Genito-urinary: Mild costovertebral angle tend
Musculoskeletal: No Clubbing, No Cyanosis and No Edema
Neuro: Awake Not Oriented, apparent dementia
Psych-agitated
A/P: Patient is a 74y F with PMH significant for dementia, HTN and nephrolithiasis who presents to ED for evaluation of right-sided pain.
Right Distal Ureterolithiasis
Right Sided Hydronephrosis +/- Calyceal Rupture secondary to the above
- pain control / supportive measures.
- Begin tamsulosin. IV fluid
- Empiric IV abx for now . Urine culture with no growth
- Follow for any new / worsening symptoms, development of fevers, etc.
- Pulmonary preop risk stratification noted. Surgery got postponed but on schedule again for later today.
Right Pneumothorax
Severe Emphysema
Lung mass suspected malignancy
- CT done in the ED shows < 25% anterior pneumothorax on the R.
- Severe emphysema, cystic changes at R apex. Bilateral midlung mucus plugging. CECIL nodule (1.1cm).
- Initial mild hypoxemia improved with supplemental O2. No cough, fever, etc.
- Follow clinical exam and serial CXRs.
- Pulmonary consulted for additional recommendations.
- No formal dx of COPD noted and on no chronic inhalers, etc.
- Repeat chest x-ray 04/01/25 small right apical pneumothorax, estimated at less than 5%. No significant change compared to prior chest x-ray.
Benign Hypertension
- Continue home amlodipine with holding parameters.
Chronic HFpEF
Severe TR
- Does not appear volume overloaded at present.
- Hold Lasix acutely. Follow I/Os, daily weights, etc.
Senile Dementia with Behavioral Disturbance
- Hold Aricept for now with noted QT prolongation on EKG.
- Continue other psychotropic medications-continue with Ativan prn and Risperdal BID dosing added. Psychotropic medication addition was discussed with patient POA and he was agreeable and amenable to it.
- Follow for changes in mood.
Elevated creatinine likely CKD
-Monitor creatinine for now in the setting of hydronephrosis, renal stone etc
- Improvement in creatinine noted
Lung mass and bladder lesions noted and were discussed with POA. Patient went to follow-up outpatient with oncology
DVT Prophylaxis: SCDs/start hep sc
Code Status: DNR
Anticipated Discharge: 24 - 48 hours
Subjective/Interval History
-
Date of Service: April 01, 2025
remains confused and wants to eat and go home
Objective Data
-
Labs:
Laboratory Results
04/01/25
06:32
WBC 5.0
Hgb 11.7 L
Hct 36.9 L
Plt Count 225
Sodium 136
Potassium 3.9
Chloride 105
Carbon Dioxide 24
BUN 15
Creatinine 0.9
Glucose 75
Calcium 8.4
Vital Signs:
Vital Signs
Temp Pulse Resp BP Pulse Ox
97.5 F 74 16 129/63 97
04/01/25 07:50 04/01/25 07:50 04/01/25 07:50 04/01/25 08:33 04/01/25 07:50
I&O
03/31/25 04/01/25 04/02/25
06:59 06:59 06:59
Intake Total 600 / 600 750 / 750
Output Total 400 / 400
Balance 200 / 200 750 / 750
[2025-04-01] MEDS: LR IV (13:05)
--- NOTE | 2025-04-01 17:30 | PTCARENOTE ---
patient returned from sx. Oriented x1, VSS, bed alarm in place. Patient yelling that she needs to go the bathroom, patient was informed that she has a saldivar. Patient is disoriented to situation. patient pulling at saldivar. patient trying to get out of
bed. 3 staff members attempting to calm patient down while patient screaming and kicking in the air. MD Finch notified of patient's condition. new orders placed. will continue to monitor.
--- NOTE | 2025-04-01 17:35 | PTCARENOTE ---
patient arrived from sx. with saldivar, blood tinge urine. to be expected. will continue to monitor.
[2025-04-01] MEDS: STERILE WATER FOR INJECTION 2.1 ML IM (17:55)
[2025-04-01] MEDS: DILAUDID 0.5 MG IV (17:57)
[2025-04-01] MEDS: ZYPREXA 5 MG IM (17:58)
[2025-04-01] MEDS: REMERON PO (18:08)
[2025-04-01] MEDS: HEPARIN 5000 UNITS SC (20:13)
[2025-04-01] MEDS: DESYREL 100 MG PO (21:15)
[2025-04-01] MEDS: ATIVAN 0.25 MG PO (23:04)
[2025-04-01] MEDS: TYLENOL 650 MG PO (23:04)
--- NOTE | 2025-04-01 23:18 | PTCARENOTE ---
Patient is oriented to self and is not redirectable. Patient has a saldivar catheter in place. Patient keeps attempting to remove and play with saldivar. RN attempted to re-direct patient and provide patient with water and pain medication; however,
patient continues to attempt to get out of bed and play with catheter. Bilateral mitts applied. CHELA Horne made aware, see order for mitts.
--- NOTE | 2025-04-02 03:20 | PTCARENOTE ---
Patient is now sleeping; mitts removed from patient.
[2025-04-02 03:45] VITALS: BP 110/58
[2025-04-02] MEDS: ROCEPHIN 1000 MG IV (04:53)
[2025-04-02] MEDS: STERILE WATER FOR INJECTION 10 ML IV (04:53)
[2025-04-02 05:46] VITALS: BMI 19.2
[2025-04-02 07:59] VITALS: BP 165/71
[2025-04-02] MEDS: NORVASC 5 MG PO (08:02)
[2025-04-02] MEDS: ZOLOFT 50 MG PO (08:02)
[2025-04-02] MEDS: RISPERDAL 0.25 MG PO (08:02)
[2025-04-02] MEDS: PROTONIX 40 MG PO (08:02)
[2025-04-02] MEDS: FLOMAX 0.4 MG PO (08:02)
[2025-04-02] MEDS: HEPARIN 5000 UNITS SC (08:02)
[2025-04-02] MEDS: NAMENDA 10 MG PO (08:02)
[2025-04-02] MEDS: STERILE WATER FOR INJECTION 2.1 ML IM (08:29)
[2025-04-02] MEDS: ZYPREXA 5 MG IM (08:29)
--- NOTE | 2025-04-02 09:24 | W.PN.PUL3 ---
Today's Communication / Plan
-
Stable ptx, can be followed as OP if family desires
Further management for stone per Uro
Can limit daily imaging, perform as needed
We will place contact in chart for FU
Will sign off at this time, and call if condition changes
Assessment
-
Patient is a 74-year-old female with previous history of dementia, hypertension presenting to ER from [employer] [facility] for evaluation of right sided chest pain. She was sent to [facility] ER for evaluation, chest x-ray demonstrating small
pneumothorax. She has history of extensive kidney stones with CT imaging demonstrating right distal ureteral lithiasis with right sided hydronephrosis.
Denies prior known history of lung disease, does not see alternative energy engineer as outpatient. History is limited due to history of dementia as well. We are consulted for evaluation.
Small spontaneous ptx, suspect from underlying lung disease
Right upper lobe lung mass measuring 1.5 x 2.4 cm
Obstructive renal calculus with moderate hydronephrosis
Urinary bladder nodule measuring 8 mm concerning for urothelial neoplasm
Leukocytosis
EFRA, baseline creatinine 0.9, now 1.4
Conditions present prior to admission
Dementia
Hypertension
HFpEF / Severe Tricuspid Regurgitation
Nephrolithiasis
Anxiety / Depression
Plan
No oxygen was needed on admission, currently saturating 100% on RA
Prior history of lung disease is not noted, never seen my alternative energy engineer in past
CXR/CT obtained indicating lung mass and ptx, likely due to the former--repeat CXR does appear better
Difficult situation given her dementia, chest tube at this time does not seem urgent or necessary if improving
Discussed with care team, with observation, if expansion occurs can place
Repeat CXR showing continued improvement ~5% remains
I suspect she has underlying lung disease given emphysema
She reports she is a non-smoker, I am not sure that this history is accurate
No prior PFTs for review, I am not sure that she is able to perform this well
Other imaging reviewed--she has lung mass and bladder nodules concerning for neoplasms, possibly two separate
This would need to be reviewed with family eventually about pursuing this as outpatient
CHF history, maintained on lasix
Prior ECHO results are reviewed indicating stable function with mild-mod , severe TR, severe PH
Pulmonary hypertension may be related to underlying severe lung disease
Obstructive uropathy with moderate hydronephrosis noted
Urology following and aware, needing intervention
EFRA noted as well likely post renal
Risk of anesthesia with intubation would be great and her condition
I had a long discussion with her POA, Nick who is her cousin. I explained her current situation and needing surgery. Intubation and mechanical ventilation would worsen her lung disease. She may have risk for prolongation on the vent. They will
need to discuss this with the family and make a decision moving forward. Nick would like to discuss with his brothers to decide, we can reassess in the next 24 hours. Care team is updated as well.
Family would like to proceed with procedures
Diagnostic Data
Chest X-Ray: 03/29/25-Small right apical pneumothorax. Improved
CT Scan: CAP 03/28/25-Right pneumothorax. COPD. Possible lung carcinoma. Further evaluation/follow-up PET/CT examination advised.
6 mm calculus in the distal right ureter with obstructive uropathy. 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
Echo: 03/18/24- Normal left ventricular size and function. Normal regional wall motion. Normal left ventricular wall thickness. LV ejection fraction is 55-60% by visual assessment. Normal diastolic function. Mitral valve opens normally. Thickened
mitral valve leaflets. Mild mitral regurgitation. Trileaflet aortic valve. Thickened aortic valve with normal leaflet excursion. Mild to moderate aortic regurgitation. Tricuspid valve opens normally. Severe tricuspid regurgitation. Estimated
pulmonary artery pressure of 55 mmHg. Assuming a right atrial pressure of 8 mmHg. Pleural effusion present.
PFT's:
Reports and relevant images were personally reviewed.
Total time spent on this consultation __45__ minutes which includes review of history, physical exam, medications, laboratory data, personal review of imaging, extensive review of outpatient records, discussion with care team and respiratory therapy.
Subjective Data
-
Date of Service:
Date of Service: April 02, 2025
Chief Complaint: Pulmonary Follow Up
Subjective:
No new complaints, stable on RA
Objective Data
Data Reviewed
Vital Signs / I&O / Oxygen:
Vital Signs
Temp Pulse Resp BP Pulse Ox
97.7 F 108 20 165/71 91
04/02/25 07:59 04/02/25 07:59 04/02/25 07:59 04/02/25 07:59 04/02/25 07:59
Intake and Output
04/01/25 04/02/25 04/03/25
06:59 06:59 06:59
Intake Total 750 / 750 120 / 120
Output Total 800 / 800
Balance 750 / 750 -680 / -680
SaO2 91
Nasal Cannula flow liters per 2
minute
Physical Exam
General: Comfortable, Poor Appetite and Other (thin appearing)
HEENT: Normocephalic, Anicteric and Moist Mucous Membranes
Cardiovascular: S1-S2 and Regular Rhythm
Respiratory: Non-Labored Respirations and Other (Diminished breath sounds overall)
GI: Soft, Non Distended and Non Tender
Neurology: Awake, Alert and Other (Confused, baseline)
Skin: Warm and Dry
Labs/Micro/Reports
Lab Data
04/01/25 06:32
04/01/25 06:32
Microbiology
03/28/25 22:59 Urine Urine Culture - Final
No Significant Growth
[2025-04-02 11:00] VITALS: BP 118/69
--- NOTE | 2025-04-02 11:35 | W.PN.HOSP.TC ---
Addendum entered and electronically signed by Martin Finch MD 04/15/25 16:46:
Bladder lesion with transurethral resection of bladder tumor status post biopsy with pathology reports of urothelial carcinoma
Addendum entered and electronically signed by Martin Finch MD 04/02/25 14:30:
EFRA on likely CKD
Original Note:
Today's Communication/Plan
-
dc back to SNF
OP urology and pulm fu -d/w with POA
Assessment / Plan
Assessment / Plan
General: Anxious, agitated, cachexia
HEENT: Moist mucous membranes and Other (Neck supple.)
Respiratory: Decreased breath sounds, oxygenation noted
Cardiac: S1/S2 and Regular Rhythm; No Murmur
GI: Soft, nontender nondistended
Genito-urinary: Mild costovertebral angle tend
Musculoskeletal: No Clubbing, No Cyanosis and No Edema
Neuro: Awake Not Oriented, apparent dementia
Psych-agitated
A/P: Patient is a 74y F with PMH significant for dementia, HTN and nephrolithiasis who presents to ED for evaluation of right-sided pain.
Right Distal Ureterolithiasis
Right Sided Hydronephrosis +/- Calyceal Rupture secondary to the above
- pain control / supportive measures.
-Per urology due to defect in right proximal ureter was not safe to proceed with ureteroscopy status post stent placement. Saldivar catheter was placed in OR which has been removed and patient is voided. Status post biopsy of the lesions in the
bladder.
- No further antibiotics per urology.
Right Pneumothorax
Severe Emphysema
Lung mass suspected malignancy
- CT done in the ED shows < 25% anterior pneumothorax on the R.
- Severe emphysema, cystic changes at R apex. Bilateral midlung mucus plugging. CECIL nodule (1.1cm).
- No formal dx of COPD noted and on no chronic inhalers, etc.
- Repeat chest x-ray 04/02/25 small right apical pneumothorax, estimated at less than 5%. SEVERE BILATERAL UPPER LOBE CENTRILOBULAR EMPHYSEMA. Seems not much changed. Remains stable on room air. Discussed with pulmonary okay for discharge.
- Will need to follow-up outpatient with pulmonary and oncology for lung malignancy
Benign Hypertension
- Continue home amlodipine with holding parameters.
Chronic HFpEF
Severe TR
- restart Lasix
Senile Dementia with Behavioral Disturbance
- Hold Aricept for now with noted QT prolongation on EKG.
- Continue other psychotropic medications-continue with Ativan prn and Risperdal BID dosing added. Psychotropic medication addition was discussed with patient POA and he was agreeable and amenable to it.
- Follow for changes in mood.
Elevated creatinine likely CKD
-Monitor creatinine for now in the setting of hydronephrosis, renal stone etc
- Improvement in creatinine noted
Lung mass and bladder lesions noted and were discussed with POA. Patient went to follow-up outpatient with oncology
DVT Prophylaxis: SCDs/start hep sc
Code Status: DNR
PT/OT SNF
d/w with POA-agreeable for dc
More than 30 minutes spent in discharge including
Final examination of the patient
Summarizing hospital stay
Instructions for continuing care to all relevant caregivers
Preparation of discharge records, prescriptions, and referral forms
Total time spent (in minutes): 55
Anticipated Discharge: Today
Subjective/Interval History
-
Date of Service: April 02, 2025
saldivar catheter was removed
Pt has voided post saldivar removal
eating breakfast
Objective Data
-
Vital Signs:
Vital Signs
Temp Pulse Resp BP Pulse Ox
97.7 F 108 20 165/71 91
04/02/25 07:59 04/02/25 07:59 04/02/25 07:59 04/02/25 07:59 04/02/25 07:59
I&O
04/01/25 04/02/25 04/03/25
06:59 06:59 06:59
Intake Total 750 / 750 120 / 120
Output Total 800 / 800
Balance 750 / 750 -680 / -680
--- NOTE | 2025-04-02 12:51 | W.DCSUMMARY ---
Discharge Summary
Discharge Data
Date of Admission: 03/29/25
Date of Discharge: 04/02/25
-
Pending Results: No
Hospital Course
74 female past medical history of advanced dementia, chronic HFpEF, severe tricuspid regurgitation, history of renal stones who is presented with complaints of flank pain from halfway. Patient with CT abdomen pelvis which showed with right
sided hydronephrosis and renal stone. Patient also had imaging which shows a right-sided pneumothorax. Patient was eval by pulmonary and urologist. Patient with significant improvement in pneumothorax with complete resolution and only small less
than 5% apical pneumothorax. Patient was stable on room air. 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 CT abdomen also showed bladder mass which was biopsied and patient underwent
procedure. Right ureteral stent was placed. IV antibiotic which was started on admission was eventually discontinued and no further need for antibiotics per urology. Rosenbaum catheter was removed and patient was voiding without difficulty. Patient
was eval by physical and Occupational Therapy and be discharged back to care home facility. Patient POA Nick knows about patient bladder mass which was biopsied. Patient POA also knows about lung mass which will require follow-up as outpatient.
Discharge Plan
-
Patient Disposition: Long-Term/SNF
Discharge Diagnosis/Procedures: Right Distal Ureterolithiasis
Right Sided Hydronephrosis status post ureteral stent placement
Bladder lesion status post biopsy
Lung lesion
Elevated creatinine
Condition: Fair
Diet: Regular
Activity: As tolerated
Driving Restrictions: No driving
Referrals:
Ann Holt DO [Active, Pulmonary Medicine]
Referral Note: Call to make appointment for lung mass follow-up
Domi Karimi MD [Active, Urology]
Referral Note: Call to make appointment for follow-up bladder biopsy results
BARBRA BAZAN NP [Family Provider, Family Practice] - in less than 1 week
Prescriptions:
Continued
donepezil 10 mg Tablet
10 mg PO HS
amlodipine 5 mg Tablet
5 mg PO DAILY
omeprazole 40 mg Capsule,Delayed Release(Dr/Ec)
40 mg PO DAILY
trazodone 100 mg Tablet
100 mg PO HS
sertraline 50 mg Tablet
50 mg PO DAILY
memantine 10 mg Tablet
10 mg PO BID
potassium chloride 20 mEq Tablet Extended Release
20 meq PO DAILY
mirtazapine 15 mg Tablet
7.5 mg PO DAILY@1800
furosemide [Lasix] 20 mg Tablet
20 mg PO MOWEFR
lorazepam 0.5 mg Tablet
0.25 mg PO DAILY Qty: 3 0RF
Rx Instructions:
1/2 tablet (0.25 mg) by mouth daily
Discontinued
ondansetron HCl 4 mg Tablet
4 mg PO Q6HPRN PRN (Reason: nausea)
loperamide 2 mg Tablet
4 mg PO Q6HPRN PRN (Reason: diarrhea)
Discharge Orders:
Discharge Patient (As Directed); Ordered 04/02/25
Ordered By: Martin Finch
Discharge Date and Time
Print Language: THAI
--- NOTE | 2025-04-02 13:06 | PN.CDI ---
CDI
- -
CDI:
Physician Documentation Request
Admit Date: 03/29/25 02:29
Dear Doctor Stef,
Clinical Indicators:
Patient admitted with obstructive renal calculus with moderate hydronephrosis.
04/02 PN, 'Elevated creatinine likely CKD -Monitor creatinine for now in the setting of hydronephrosis, renal stone etc'
Cr/GFR trend:
03/28/25 03/29/25 03/30/25
22:23 05:34 07:39
Creatinine 1.2 H 1.4 H 1.3 H
eGFR 47.21 39.23 42.88
03/31/25 04/01/25
06:51 06:32
Creatinine 1.1 H 0.9
eGFR 52.40 > 60.00
Please clarify which of the following accurately represents the patient's renal status:
EFRA
EFRA on CKD (please specify stage)
CKD only (please specify stage)
Other
Criteria for EFRA*
1 Increase in serum creatinine by > or = to 0.3 mg/dL (> or = to 26.5 micromol/L) within 48 hours, OR
2 Increase in serum creatinine to > or = to 1.5 times baseline, which is known or presumed to have occurred within 7 days, OR
3 Urine volume < 0.5 nL/kg/hour for six hours
Stages of Chronic Kidney Disease*
Level Description GFR
G1 Normal or High >90
G2 Mildly decreased 60-89
G3a Mildly to moderately decreased 45-59
G3b Moderately to severely decreased 30-44
G4 Severely decreased 15-29
G5 Kidney failure <15
Use of terms such as suspected, likely, concern for, or probable (associated with a specific diagnosis that is being evaluated, monitored, or treated as if it exists) are acceptable and can be coded in the inpatient setting, when documented at the
time of discharge.
Thank you,
GLORY Villavicencio RN
CDI Specialist
available via tiger text
Please use your independent medical judgment in providing your response.
*Source: Kidney Disease: Improving Global Outcomes (KDIGO) 2012
--- NOTE | 2025-04-02 14:16 | CM ---
Patient is being discharge today. She will be returning to the [facility] unit. She was evaluated on site by nurse Li from [facility]. Spoke with nurse Li from [facility] re home care for patient. [facility] will arrange home care, but will need
a written order. 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 Her POA has been notified of transfer arrangement. IMM reviewed with POA.
[facility]
# for report- [phone]
fax#[phone]
Plan: transfer back to [facility] tonight.
[2025-04-02 15:00] VITALS: BP 152/82
--- NOTE | 2025-04-02 17:11 | W.PN.UPDATE ---
Update Note
Progress Note Update
Patient doing well s/p bladder biopsy/TURBT, R stent on 04/02/25. Rosenbaum removed today. Patient voiding without significant hematuria. Will discuss f/u plans with [facility] given pt is DNR. Ok for DC from urology standpoint
--- NOTE | 2025-04-07 08:40 | PN.CDI ---
CDI
- -
CDI:
Physician Documentation Request
Admit Date: 03/29/25 02:29
Dear Doctor Stef,
Please review the following and provide your response in the progress notes.
Clinical Indicators:
The diagnosis of high-grade urothelial carcinoma (HGUC) was included in the signed path report.
Additional clinical indicators in the chart include: Bladders lesions with transurethral resection of bladder tumor.
Please indicate in your progress notes if you are in agreement that the above diagnosis is valid for this patient:
____ - Urothelial carcinoma is a valid diagnosis (Please include it in your progress notes)
____ - Urothelial carcinoma is not a valid diagnosis for this patient
____ - Urothelial carcinoma is not yet confirmed but remains a suspected condition
____ - Other
____ - Unable to determine
Use of terms such as suspected, likely, concern for, or probable are acceptable for a diagnosis that is being evaluated, monitored or treated as if it exists and can be coded in the inpatient setting, when documented at the time of discharge.
Thank you,
Mignon Anthony
Desktop Support Engineer
Please use your independent medical judgment in providing your response.
== END 2025-04-02 18:14 | disposition home health service (06) | DRG 660 ==
LOC: 4 WEST ACU 02:29
PROVIDERS: Student in an Organized Health Care Education/Training Program; ADMITTING PHYSICIAN Hospitalist; ATTENDING PHYSICIAN Hospitalist; CONSULT PHYSICIAN Student in an Organized Health Care Education/Training Program; EMERGENCY PHYSICIAN Emergency Medicine; FAMILY PHYSICIAN Nurse Practitioner Adult Health; OTHER PHYSICIAN Internal Medicine
PROC: 0TBB8ZX Excision of Bladder, Via Natural or Artificial Opening Endoscopic, Diagnostic (ICD-10-PCS; 2025-04-01)
PROC: 0T768DZ Dilation of Right Ureter with Intraluminal Device, Via Natural or Artificial Opening Endoscopic (ICD-10-PCS; 2025-04-01)
PROC: 0TBB8ZZ Excision of Bladder, Via Natural or Artificial Opening Endoscopic (ICD-10-PCS; 2025-04-01)
DX: N13.2 Hydronephrosis with renal and ureteral calculous obstruction (principal); F03.918 Unspecified dementia, unspecified severity, with other behavioral disturbance; F03.94 Unspecified dementia, unspecified severity, with anxiety; I50.32 Chronic diastolic (congestive) heart failure; F03.93 Unspecified dementia, unspecified severity, with mood disturbance; J93.9 Pneumothorax, unspecified; D49.4 Neoplasm of unspecified behavior of bladder; N17.9 Acute kidney failure, unspecified; I11.0 Hypertensive heart disease with heart failure; I07.1 Rheumatic tricuspid insufficiency; D72.829 Elevated white blood cell count, unspecified; F32.A Depression, unspecified; I27.20 Pulmonary hypertension, unspecified; Z87.891 Personal history of nicotine dependence; Z79.899 Other long term (current) drug therapy; Z87.442 Personal history of urinary calculi; Z66 Do not resuscitate
CPT/HCPCS: 71045; 71046; 71260; 74177; 74420; 76000; 80048; 80053; 81003; 81015; 84484; 85025; 85027; 87086; 88112; 88305; 88307; 93005; 97163; 97166; 99285; A4300; C1758; C1894; C2617; J2358; Q9967